=== PATIENT | male | born 1945 | race Caucasian/White ===

== ENCOUNTER 2016-09-16 15:54 | Emergency (ER) | payer MEDICARE, OTHER ==
[~2016-09-16] VITALS: Ht 177.8 cm; Wt 100.0 kg
[~2016-09-16 15:54] MED LIST: AMLODIPINE BESYL5 MG PO; ASPIRIN LOW DOS81 M2 PO; ATORVASTATIN CA20 MG PO; BACTRIM DS1 TAB PO; BUSPIRONE5 MG PO; CEPHALEXIN500 MG PO; CIPROFLOXACN500 MG PO; CITALOPRAM40 MG PO; CLOTRIMAZOLE13 EX; CRESTOR20 MG PO; CRESTOR5 MG PO; DOXYCYCL HYC100 MG PO; EFFEXOR XR75 MG/CAP PO; FLEXERIL PO; GABAPENTIN300 MG PO; GABAPENTIN600 MG PO; GLIPIZIDE ER10 M1 PO; GLIPIZIDE ER5 MG PO; KETOROLAC0.5 % OP; LINZESS290 MCG PO; LISINOP/HCTZ1 TA2 PO; LOSARTAN POT50 MG PO; MEDDOSEPAK PO; METFORMIN1000 MG PO; METFORMIN500 MG PO; MIRTAZAPINE15 MG PO; NAPROSYN500 MG PO; NORVASC10 M1 PO; NORVASC2.5 MG PO; NORVASC5 M1 PO; OFLOXACIN0.3 % OP; PIOGLITAZONE HC30 MG PO; PREDNISONE SOLUT5 ML OU; ROBITUSSIN AC10 ML PO; ROCEPHIN 2 GM2 GM IV; TAMSULOSIN HCL0.4 MG PO; TAMSULOSIN0.4 MG PO; TRAMADOL HCL50 MG PO; ULTRAM50 M1 PO; ULTRAM50 MG PO; XANAX0.25 MG PO; [UNRECOGNIZED DRUG - SUPPLY] TOP
[2016-09-16 16:41] LABS: URINE BILIRUBIN - DIPSTICK NEGATIVE (NEGATIVE); URINE BLOOD DIPSTICK SMALL (NEGATIVE); URINE CLARITY CLOUDY; URINE COLOR YELLOW; URINE GLUCOSE - DIPSTICK 250 mg/dL (NEGATIVE); URINE KETONE NEGATIVE (NEGATIVE); URINE PH 7.5 (4.5-8.0); URINE PROTEIN - DIPSTICK 30 mg/dL (NEG-TRACE)
[2016-09-16 16:49] LABS: URINE LEUK ESTERASE SMALL (NEGATIVE); URINE NITRITE - DIPSTICK POSITIVE (Negative)
[2016-09-16 16:55] LABS: URINE BACTERIA MANY hpf; URINE WBC 20-50 WBC/hpf (0-5)
[2016-09-16 18:15] LABS: HEMOGLOBIN 11.8 g/dl (14.0-18.0); IMMATURE GRANULOCYTES 0.3 % (0.0-1.0); MEAN CELL VOLUME 93.1 fL CALC (80.0-100.0); MEAN CORPUSCULAR HGB 31.4 pG CALC (26.0-32.0); MEAN CORPUSCULAR HGB CONC 33.7 g/L CALC (32.0-36.0); NEUT# 8.17 thou/uL (1.82-7.42); RED BLOOD COUNT 3.76 mill/uL (4.70-6.10); RED CELL DISTRI WIDTH 12.2 % (11.5-15.5)
[2016-09-16 18:30] LABS: PROTHROMBIN TIME 10.4 SECONDS (9.0-12.5)
[2016-09-16 18:35] LABS: ALBUMIN 4.5 g/dL (3.2-5.0); ALKALINE PHOSPHATASE 80 u/l (38-126); ANION GAP 16 (6-22 (CALC)); BILIRUBIN, TOTAL 0.5 mg/dL (0.0-1.4); BUN 19 mg/dL (8-23); BUN/CREATININE RATIO 19 (12-20 (CALC)); CALCIUM 9.6 mg/dL (8.4-10.2); CARBON DIOXIDE 25 mmol/l (22-30); CHLORIDE 105 mmol/l (95-108); GFR > 60 ML/MIN (>=60 (CALC)); GFR FOR AFR.AMER. > 60 ML/MIN (>=60 (CALC)); GLUCOSE 151 mg/dL (82-115); POTASSIUM 4.2 mmol/l (3.5-5.1); SGOT/AST 31 u/l (19-48); SGPT/ALT 52 u/l (11-66); SODIUM 142 mmol/l (137-146); TOTAL PROTEIN 7.8 g/dL (6.3-8.2)
[2016-09-16 18:47] LABS: MYOGLOBIN 89 ng/mL (0 - 121)
[2016-09-16] MEDS ORDERED: ULTRAM50 M1 PO (20:32)
[2016-09-16] MEDS ORDERED: CIPROFLOXACN500 MG PO (20:32)
[2016-09-16] MEDS ORDERED: PYRIDIUM200 MG PO (20:32)
[2016-09-16 21:16] VITALS: BP 150/72
== END 2016-09-16 21:17 | disposition home or self-care (01) ==
LOC: ED 15:54
PROVIDERS: Emergency Medicine
DX: N39.0 Urinary tract infection, site not specified (principal); M79.662 Pain in left lower leg; M79.661 Pain in right lower leg; I10 Essential (primary) hypertension; E78.5 Hyperlipidemia, unspecified; E11.9 Type 2 diabetes mellitus without complications; I25.10 Atherosclerotic heart disease of native coronary artery without angina pectoris; B96.1 Klebsiella pneumoniae [K. pneumoniae] as the cause of diseases classified elsewhere
CPT/HCPCS: J0692; Q9967

== ENCOUNTER 2017-03-04 06:23 | Day surgery (SDC) | payer MEDICARE, OTHER ==
[~2017-03-04 06:23] MED LIST changes: +AMLODIPINE5 MG PO; +CYMBALTA60 MG PO; +GLIPIZIDE5 MG PO; +LISINOPRIL10 MG PO; +MIRTAZAPINE30 MG PO; +PYRIDIUM200 MG PO
[2017-03-04] MEDS ORDERED: TAMSULOSIN0.4 MG PO (08:45)
[2017-03-04] MEDS ORDERED: BETHANECHOL25 MG PO (08:45)
[2017-03-04] MEDS ORDERED: PYRIDIUM200 MG PO (08:45)
[2017-03-04] MEDS ORDERED: TRAMADOL HYDROC50 MG PO (08:45)
[2017-03-04 09:13] VITALS: BP 149/73
== END 2017-03-04 10:20 | disposition home or self-care (01) ==
LOC: ORM 06:23
PROVIDERS: ATTEND Urology
PROC: 0T7D8DZ Dilation of Urethra with Intraluminal Device, Via Natural or Artificial Opening Endoscopic (ICD-10-PCS; principal; 2017-03-04)
DX: N40.1 Benign prostatic hyperplasia with lower urinary tract symptoms (principal); R33.8 Other retention of urine; N13.8 Other obstructive and reflux uropathy; I10 Essential (primary) hypertension; F41.9 Anxiety disorder, unspecified; E11.9 Type 2 diabetes mellitus without complications; E78.5 Hyperlipidemia, unspecified; F43.10 Post-traumatic stress disorder, unspecified; Z87.891 Personal history of nicotine dependence
CPT/HCPCS: J1956; L8699

== ENCOUNTER 2017-04-29 10:35 | Day surgery (SDC) | payer MEDICARE, OTHER ==
[~2017-04-29] VITALS: Ht 177.8 cm; Wt 108.9 kg
[2017-04-29] VITALS (7 sets, daily range): BP systolic 119–144; BP diastolic 53–63
[~2017-04-29 10:35] MED LIST changes: +AZO BLADDER CON1 CAP; +BETHANECHOL25 MG PO; +D3400 UNIT PO; +FINASTERIDE5 MG PO; +TRAMADOL HYDROC50 MG PO; +VIT C/ACEROL500 M1 PO
[2017-04-30 03:56] VITALS: BP 142/70
[2017-04-30 05:06] LABS: HEMATOCRIT 31.4 % (39.0-50.0); HEMOGLOBIN 10.2 g/dl (14.0-18.0); IMMATURE GRANULOCYTES 0.5 % (0.0-1.0); MEAN CELL VOLUME 94.9 fL CALC (80.0-100.0); MEAN CORPUSCULAR HGB 30.8 pG CALC (26.0-32.0); MEAN CORPUSCULAR HGB CONC 32.5 g/L CALC (32.0-36.0); NEUT# 8.23 thou/uL (1.82-7.42); RED BLOOD COUNT 3.31 mill/uL (4.70-6.10); RED CELL DISTRI WIDTH 12.5 % (11.5-15.5)
[2017-04-30 05:15] LABS: ANION GAP 14 (6-22 (CALC)); BUN 18 mg/dL (8-23); BUN/CREATININE RATIO 17 (12-20 (CALC)); CARBON DIOXIDE 23 mmol/l (22-30); CHLORIDE 110 mmol/l (95-108); CREATININE 1.1 mg/dL (0.7-1.3); GFR > 60 ML/MIN (>=60 (CALC)); GFR FOR AFR.AMER. > 60 ML/MIN (>=60 (CALC)); MAGNESIUM 1.9 mg/dL (1.6-2.3); POTASSIUM 4.6 mmol/l (3.5-5.1); SODIUM 142 mmol/l (137-146)
[2017-04-30 05:27] LABS: ALBUMIN 3.4 g/dL (3.2-5.0)
[2017-04-30 08:54] VITALS: BP 134/65
[2017-04-30 15:12] VITALS: BP 128/66
== END 2017-04-30 16:55 | disposition home or self-care (01) ==
LOC: ORM 10:35 → MS2 10:35 → ORM 13:00 → MS2 16:15 → ORM 04-30 16:55
PROVIDERS: Urology; ATTEND Internal Medicine
PROC: 0VUS0JZ Supplement Penis with Synthetic Substitute, Open Approach (ICD-10-PCS; principal; 2017-04-29)
DX: N52.9 Male erectile dysfunction, unspecified (principal); F41.9 Anxiety disorder, unspecified; F32.9 Major depressive disorder, single episode, unspecified; N40.1 Benign prostatic hyperplasia with lower urinary tract symptoms; R33.8 Other retention of urine; E11.9 Type 2 diabetes mellitus without complications; E78.5 Hyperlipidemia, unspecified; I10 Essential (primary) hypertension; F43.10 Post-traumatic stress disorder, unspecified; Z87.891 Personal history of nicotine dependence; Z87.440 Personal history of urinary (tract) infections
CPT/HCPCS: C1813; J3370

== ENCOUNTER 2017-11-08 19:33 | Emergency (ER) | payer MEDICARE, OTHER ==
[~2017-11-08] VITALS: Ht 177.8 cm; Wt 104.5 kg
[2017-11-08 20:10] LABS: IMMATURE GRANULOCYTES 0.2 % (0.0-5.0); MEAN CELL VOLUME 93.3 fL CALC (80.0-100.0); MEAN CORPUSCULAR HGB CONC 34.3 g/L CALC (32.0-36.0); NEUT# 6.71 thou/uL (1.82-7.42); RED BLOOD COUNT 4.03 mill/uL (4.70-6.10); RED CELL DISTRI WIDTH 13.1 % (11.5-15.5)
[2017-11-08 20:18] LABS: HEMATOCRIT 37.6 % (39.0-50.0); HEMOGLOBIN 12.9 g/dl (14.0-18.0)
[2017-11-08 20:24] LABS: ALKALINE PHOSPHATASE 86 u/l (38-126); ANION GAP 20 (6-22 (CALC)); BILIRUBIN, TOTAL 0.3 mg/dL (0.0-1.4); BUN 32 mg/dL (8-23); BUN/CREATININE RATIO 27 (12-20 (CALC)); CARBON DIOXIDE 20 mmol/l (22-30); CHLORIDE 103 mmol/l (95-108); CREATININE 1.2 mg/dL (0.7-1.3); GFR 60 ML/MIN (>=60 (CALC)); GFR FOR AFR.AMER. > 60 ML/MIN (>=60 (CALC)); POTASSIUM 4.4 mmol/l (3.5-5.1); SGOT/AST 23 u/l (19-48); SGPT/ALT 43 u/l (11-66); SODIUM 138 mmol/l (137-146); TOTAL PROTEIN 7.1 g/dL (6.3-8.2)
[2017-11-08 20:25] LABS: ALBUMIN 4.1 g/dL (3.2-5.0)
[2017-11-08 20:32] LABS: MYOGLOBIN 39 ng/mL (0 - 121)
[2017-11-08 20:49] LABS: URINE BILIRUBIN - DIPSTICK NEGATIVE (NEGATIVE); URINE BLOOD DIPSTICK LARGE (NEGATIVE); URINE COLOR YELLOW; URINE GLUCOSE - DIPSTICK >=1000 mg/dL (NEGATIVE); URINE KETONE NEGATIVE (NEGATIVE); URINE LEUK ESTERASE TRACE (NEGATIVE); URINE PH 5.5 (4.5-8.0); URINE PROTEIN - DIPSTICK NEGATIVE (NEG-TRACE); URINE SPECIFIC GRAVITY 1.025; URINE UROBILINOGEN - DIPSTICK 0.2 E.U./dL (0.2)
[2017-11-08 20:53] LABS: URINE CLARITY SL CLOUDY; URINE NITRITE - DIPSTICK POSITIVE (Negative)
[2017-11-08 20:55] LABS: URINE BACTERIA FEW hpf; URINE WBC 20-50 WBC/hpf (0-5)
[2017-11-08 22:30] VITALS: BP 153/73
[2017-11-08] MEDS ORDERED: CIPROFLOXACN500 MG PO (22:32)
== END 2017-11-08 22:54 | disposition home or self-care (01) ==
LOC: ED 19:33
PROVIDERS: Emergency Medicine
DX: N39.0 Urinary tract infection, site not specified (principal); E11.65 Type 2 diabetes mellitus with hyperglycemia; I10 Essential (primary) hypertension; B96.1 Klebsiella pneumoniae [K. pneumoniae] as the cause of diseases classified elsewhere

== ENCOUNTER 2018-08-21 11:55 | Inpatient (IN) | payer MEDICARE, OTHER ==
[~2018-08-21] VITALS: Ht 177.8 cm; Wt 110.0 kg
[2018-08-21 11:30] VITALS: BP 133/64
--- NOTE | 2018-08-21 11:55 | NUR ---
PATIENT ARRIVES TO ED VIA EMS. ALERT AND ORIENTED X4.
[2018-08-21 12:35] LABS: HEMOGLOBIN 11.8 g/dl (14.0-18.0); IMMATURE GRANULOCYTES 0.4 % (0.0-5.0); MEAN CORPUSCULAR HGB 31.1 pG CALC (26.0-32.0); MEAN CORPUSCULAR HGB CONC 32.8 g/L CALC (32.0-36.0); NEUT# 9.17 thou/uL (1.82-7.42); RED BLOOD COUNT 3.79 mill/uL (4.70-6.10); RED CELL DISTRI WIDTH 12.5 % (11.5-15.5)
--- NOTE | 2018-08-21 12:45 | NUR ---
URINE SAMPLE COLLECTED VIA STRAIGHT CATH, URINE NOTED TO BE CLOUDY YELLOW. PATIENT TOLERATED WELL.
[2018-08-21 12:54] LABS: ALBUMIN 4.3 g/dL (3.2-5.0); ALKALINE PHOSPHATASE 63 u/l (38-126); ANION GAP 16 (6-22 (CALC)); BILIRUBIN, TOTAL 0.7 mg/dL (0.0-1.4); BUN 19 mg/dL (8-23); BUN/CREATININE RATIO 17 (12-20 (CALC)); CARBON DIOXIDE 24 mmol/l (22-30); CHLORIDE 103 mmol/l (95-108); CREATININE 1.1 mg/dL (0.7-1.3); GFR > 60 ML/MIN (>=60 (CALC)); GFR FOR AFR.AMER. > 60 ML/MIN (>=60 (CALC)); POTASSIUM 4.2 mmol/l (3.5-5.1); SGOT/AST 17 u/l (19-48); SODIUM 139 mmol/l (137-146)
[2018-08-21 13:07] LABS: URINE BILIRUBIN - DIPSTICK NEGATIVE (NEGATIVE); URINE BLOOD DIPSTICK MODERATE (NEGATIVE); URINE COLOR YELLOW; URINE GLUCOSE - DIPSTICK NEGATIVE (NEGATIVE); URINE KETONE NEGATIVE (NEGATIVE); URINE PH 6.5 (4.5-8.0); URINE PROTEIN - DIPSTICK TRACE mg/dL (NEG-TRACE); URINE SPECIFIC GRAVITY 1.025; URINE UROBILINOGEN - DIPSTICK 0.2 E.U./dL (0.2)
[2018-08-21 13:10] LABS: URINE LEUK ESTERASE SMALL (NEGATIVE); URINE NITRITE - DIPSTICK POSITIVE (Negative)
[2018-08-21 13:16] LABS: URINE BACTERIA MANY hpf; URINE RBC TNTC RBC/hpf (0-5); URINE SQUAMOUS EPITHELIAL CELL FEW EPI/hpf (0-FEW)
[2018-08-21] MEDS ORDERED: HYDROCHLOROT12.5 M1 PO (13:33)
[2018-08-21] MEDS ORDERED: LEVEMIR FL100 UNIT/M SC (13:34)
[2018-08-21] MEDS ORDERED: METFORMIN500 MG PO (13:35)
[2018-08-21] MEDS ORDERED: METO25TAB PO (13:36)
[2018-08-21] MEDS ORDERED: MULTI VIT PO (13:37)
[2018-08-21] MEDS ORDERED: NITROSTAT0.4 MG SL (13:38)
[2018-08-21] MEDS ORDERED: ISOSORB DIN10 MG PO (13:40)
--- NOTE | 2018-08-21 13:41 | NUR ---
AT BEDSIDE TO SEE PATIENT
--- NOTE | 2018-08-21 14:12 | NUR ---
REPORT CALLED TO IZABEL HYDE.
--- NOTE | 2018-08-21 14:17 | NUR ---
PATIENT TRANSPORTED TO [facility] WITH TELE IN PLACE. BELONGINGS, CANE, WALLET, AND CLOTHING SENT UP WITH PATIENT. IZABEL HYDE AT BEDSIDE, CARE RELINQUISHED.
[2018-08-21 14:35] VITALS: BP 137/69
--- NOTE | 2018-08-21 14:53 | NUR ---
PT ARRIVED TO FLOOR VIA STRETCHER IN STABLE CONDITION, ACCOMPANIED BY ER STAFF; PT AMBULATED TO BED WITH SLOW STEADY GAIT WITH X2 ASSIST; A/O X3; RESP EVEN AND UNLABORED ON ROOM AIR; TELE IN PLACE; VITALS AND BED WT OBTAINED; TEMP 100.0, COOL WASH CLOTH APPLIED TO FOREHEAD; PT STATES HE CAME TO HOSP BECAUSE HE WAS UNABLE TO WALK; GENERALIZED WEAKNESS; SELF CATH X2 DAILY, ONCE IN THE AM AND AT BEDTIME; C/O OF BEING HUNGRY; MEDICATED PER EMAR; ORIENT TO ROOM AND CALL GREGG SYSTEM; VOICE NO OTHER CONCERNS; WILL CONTINUE TO MONITOR.
--- NOTE | 2018-08-21 15:19 | NUR ---
PT SITTING UP IN BED; TURKEY SANDWICH PROVIDE; CALL GREGG IN REACH.
--- NOTE | 2018-08-21 17:09 | NUR ---
PT SITTING UP IN BED WATCHING TV; RESP EVEN AND UNLABORED ON ROOM AIR; IVF INFUSING WITHOUT INCIDENT; REQ COFFEE (PROVIDED); MEDICATED PER EMAR; CALL GREGG IN REACH.
--- NOTE | 2018-08-21 19:00 | NUR ---
RECEIEVED REPORT FROM NURSE HYDE, PATIENT RESTING IN BED, ALERT AND ORIENTED, SHALLOW UNLABORED BREATHING CALL LIGHT AT REACH.
[2018-08-21 19:06] VITALS: BP 155/68
--- NOTE | 2018-08-21 20:00 | NUR ---
PATIENT ALERT AND ORIENTED, ABLE TO MAKE NEEDS KNOWN, PATIENT REPORTED THAT HE DOES SELF CATHETERIZATION, ABLE TO DRAIN 950CC CLEAR YELLOW URINE, WITH AN ONGOING IVF OF NS @100CC/HR INFUSING WELL ON RAC REMAINS ON TELE, CALL LIGHT AT REACH.
[2018-08-21 23:30] VITALS: BP 133/64
--- NOTE | 2018-08-22 | NUR ---
PATIENT CURRENTLY RESTING IN BED EYES CLOSED, TEMP 99.6, CALL LIGHT AT REACH WILL CONTINUE TO MONITOR
[2018-08-22 04:05] VITALS: BP 137/64
[2018-08-22 05:20] LABS: HEMATOCRIT 35.1 % (39.0-50.0); HEMOGLOBIN 11.6 g/dl (14.0-18.0); MEAN CELL VOLUME 95.6 fL CALC (80.0-100.0); MEAN CORPUSCULAR HGB 31.6 pG CALC (26.0-32.0); RED BLOOD COUNT 3.67 mill/uL (4.70-6.10); RED CELL DISTRI WIDTH 12.5 % (11.5-15.5)
[2018-08-22 05:44] LABS: ANION GAP 14 (6-22 (CALC)); BUN 19 mg/dL (8-23); BUN/CREATININE RATIO 17 (12-20 (CALC)); CARBON DIOXIDE 25 mmol/l (22-30); CHLORIDE 106 mmol/l (95-108); CREATININE 1.1 mg/dL (0.7-1.3); GFR > 60 ML/MIN (>=60 (CALC)); GFR FOR AFR.AMER. > 60 ML/MIN (>=60 (CALC)); POTASSIUM 4.2 mmol/l (3.5-5.1); SODIUM 140 mmol/l (137-146)
--- NOTE | 2018-08-22 06:05 | NUR ---
PATIENT APPEARS TO BE RESTING IN BED WITH EYES CLOSED, WITH SHALLOW UNLABORED BREATHING AT THIS TIME, CALL LIGHT AT REACH
--- NOTE | 2018-08-22 07:05 | NUR ---
REPORT RECEIVED FROM SAROJ GONZALES;PT RESTING IN SEMI FOWLERS POSITION;INTRODUCED SELF TO PT AND POC DISCUSSED;RESPIRATIONS EVEN AND UNLABORED ON RA;PT DENIES ANY CURRENT PAIN OR DISCOMFORTS;ACCUCHECK 110, NO COVERAGE REQUIRED AT THIS TIME;PT ENCOURAGED TO CALL FOR ASSISTANCE IF NEEDED;FALL PRECAUTIONS IN PLACE WITH BED IN THE LOWEST POSITION AND CALL LIGHT IN REACH;WILL CONTINUE TO MONITOR
--- NOTE | 2018-08-22 07:50 | NUR ---
PT RESTING IN SEMI FOWLERS POSITION COMPLETING SOREN, A&O X4;VS OBTAINED AND ASSESSMENT COMPLETED, CURRENT TEMP 98.9;PT DENIES ANY CURRENT PAIN,PAIN SCALE AND REPORTING EDUCATED;RESPIRATIONS EVEN AND UNLABORED ON RA, CLEAR/DIMINISHED LUNG SOUNDS NOTED;NON-PRODUCTIVE COUGH AT TIMES;ABDOMEN DISTENDED/SOFT ON PALPATION AND ACTIVE IN ALL 4 QUADRANTS;WEAK PEDAL PULSES;SKIN INTACT;#18G TO RAC INFUSING NS @ 100ML/HR,SITE APPEARS HEALTHY;PT STRAIGHT CATHED DUE TO URINARY RETENTION AND 500CC OF CLEAR/YELLOW URINE OBTAINED;IT SHOULD BE NOTED THAT PT SELF CATHS HIMSELF AT HOME;TELE MONITORING NOTED;PT RE-POSITIONED FOR COMFORT PER REQUEST;DENIES ANY ADDITIONAL NEEDS AT THIS TIME;ENCOURAGED PT TO CALL FOR ASSISTANCE IF NEEDED;FALL PRECAUTIONS IN PLACE WITH BED IN THE LOWEST POSITION AND CALL LIGHT IN REACH;WILL CONTINUE TO MONITOR
[2018-08-22 07:52] VITALS: BP 157/98
[2018-08-22 11:00] VITALS: BP 120/61
--- NOTE | 2018-08-22 11:26 | NUR ---
PT RESTING IN SEMI FOWLERS POSITION WITH AT BEDSIDE DISCUSSING POC;RESPIRATIONS EVEN AND UNLABORED ON RA;PT DENIES ANY CURRENT PAIN OR DISCOMFORTS;IV FLUIDS INFUSING WELL TO RAC;TELE MONITORING IN PLACE;ACCUCHECK 134, NO COVERAGE NEEDED;ENCOURAGED PT TO CALL FOR ASSISTANCE IF NEEDED;FALL PRECAUTIONS IN PLACE WITH CALL LIGHT IN REACH;WILL CONTINUE TO MONITOR
--- NOTE | 2018-08-22 15:25 | NUR ---
PT RESTING IN SEMI FOWLERS POSITION;RESPIRATIONS EVEN AND UNLABORED ON RA;PT DENIES ANY CURRENT PAIN OR DISCOMFORTS;IV SITE TO RAC REMAINS PATENT WITH ABX INFUSING WITH EASE;TELE MONITORING IN PLACE;ASSESSMENT REMAINS UNCHANGED AT THIS TIME;ENCOURAGED PT TO CALL FOR ASSISTANCE IF NEEDED;FALL PRECAUTIONS IN PLACE WITH CALL LIGHT IN REACH;WILL CONTINUE TO MONITOR
[2018-08-22 16:19] VITALS: BP 136/68
--- NOTE | 2018-08-22 19:00 | NUR ---
RECEIVED REPORT FROM MILLY, PATIENT CURRENTLY RESTING IN BED, SIDE LYING POSITION, NO DISCOMFORTS NOTED AT THIS TIME, EVEN UNLABORED BREATHING CALL LIGHT AT REACH.
[2018-08-22 19:39] VITALS: BP 146/69
--- NOTE | 2018-08-22 21:30 | NUR ---
PATIENT ALERT AND ORIENTED X 3 ABLE TO MAKE NEEDS KNOWN, DENIES PAIN OR DISCOMFORTS AT THIS TIME, REMAINS ON TELE SR 73, BS 252, COVERAGE GIVEN, CURREWNTLY RESTING IN BED WATCHING TV CALL LIGHT AT REACH.
[2018-08-22 23:35] VITALS: BP 129/72
--- NOTE | 2018-08-23 | NUR ---
PATIENT RESTING IN BED WITH EYES CLOSED NO DISCOMFORTS NOTED AT THIS TIME, ON TELE SR WITH PVC 63, CALL LIGHT AT REACH.
[2018-08-23 03:49] VITALS: BP 127/68
--- NOTE | 2018-08-23 05:00 | NUR ---
PATIENT RESTING IN BED, NO DISCOMFORTS NOTED AT THIS TIME, CALL LIGHT AT REACH.
[2018-08-23 05:28] LABS: HEMATOCRIT 34.8 % (39.0-50.0); HEMOGLOBIN 11.5 g/dl (14.0-18.0); IMMATURE GRANULOCYTES 0.4 % (0.0-5.0); MEAN CELL VOLUME 95.1 fL CALC (80.0-100.0); MEAN CORPUSCULAR HGB 31.4 pG CALC (26.0-32.0); NEUT# 4.98 thou/uL (1.82-7.42); RED BLOOD COUNT 3.66 mill/uL (4.70-6.10); RED CELL DISTRI WIDTH 12.4 % (11.5-15.5)
[2018-08-23 05:48] LABS: ALBUMIN 3.7 g/dL (3.2-5.0); ALKALINE PHOSPHATASE 63 u/l (38-126); ANION GAP 12 (6-22 (CALC)); BUN 17 mg/dL (8-23); BUN/CREATININE RATIO 17 (12-20 (CALC)); CARBON DIOXIDE 25 mmol/l (22-30); CHLORIDE 107 mmol/l (95-108); GFR > 60 ML/MIN (>=60 (CALC)); GFR FOR AFR.AMER. > 60 ML/MIN (>=60 (CALC)); MAGNESIUM 1.9 mg/dL (1.6-2.3); SGOT/AST 21 u/l (19-48); SODIUM 141 mmol/l (137-146); TOTAL PROTEIN 6.4 g/dL (6.3-8.2)
[2018-08-23 05:54] LABS: BILIRUBIN, TOTAL 0.3 mg/dL (0.0-1.4)
--- NOTE | 2018-08-23 07:00 | NUR ---
REPORT RECEIVED FROM SAROJ GONZALES;PT APPEARS TO BE SLEEPING IN SEMI FOWLERS POSITION;NO S/S OF DISTRESS NOTED;RESPIRATIONS EVEN AND UNLABORED ON RA;TELE MONITORING IN PLACE;ACCUCHECK 100, NO COVERAGE NEEDED AT THIS TIME;FALL PRECAUTIONS IN PLACE WITH BED IN THE LOWEST POSITION AND CALL LIGHT IN REACH;WILL CONTINUE TO MONITOR
[2018-08-23 08:30] VITALS: BP 134/60
--- NOTE | 2018-08-23 08:30 | NUR ---
PT OOB RESTING IN RECLINER, A&O X4;VS OBTAINED AND ASSESSMENT COMPLETED;PT DENIES ANY CURRENT PAIN OR DISCOMFORTS,PAIN SCALE AND REPORTING EDUCATED;RESPIRATIONS EVEN AND UNLABORED ON RA,CLEAR/DIMINISHED LUNG SOUNDS;ABDOMEN DISTENDED/FIRM ON PALPATION AND ACTIVE IN ALL 4 QUADRANTS;WEAK PEDAL PULSES WITH +1 EDEMA NOTED,ENCOURAGED ELEVATION OF BLE;#18G TO RAC FLUSHED AND PATENT,SITE APPEARS HEALTHY;TELE MONITORING IN PLACE;IT SHOULD BE NOTED THAT PT SELF CATHS HIMSELF DUE TO URINARY RETENTION;PT DENIES ANY ADDITIONAL NEEDS AT THIS TIME AND IS ENCOURAGED TO CALL FOR ASSISTANCE IF NEEDED;CALL LIGHT IN REACH;WILL CONTINUE TO MONITOR
[2018-08-23 11:12] VITALS: BP 111/64
--- NOTE | 2018-08-23 11:15 | NUR ---
PT OOB RESTING IN RECLINER WATCHING TV;RESPIRATIONS EVEN AND UNLABORED ON RA;PT DENIES ANY CURRENT PAIN OR DISCOMFORTS;TELE MONITORING IN PLACE;ACCUCHECK 229,PT COVERED WITH SLIDING SCALE NOVOLOG PER ORDER;PT DENIES ANY ADDITIONAL NEEDS AT THIS TIME AND IS ENCOURAGED TO CALL FOR ASSISTANCE;CALL LIGHT IN REACH;WILL CONTINUE TO MONITOR
--- NOTE | 2018-08-23 11:47 | NUR ---
AT BEDSIDE DISCUSSING POC.
--- NOTE | 2018-08-23 15:15 | NUR ---
PT RESTING IN SEMI FOWLERS POSITION;RESPIRATIONS REMAIN EVEN AND UNLABORED ON RA;PT DENIES ANY CURRENT PAIN;COFFEE PROVIDED PER REQUEST;IV SITE TO RAC PATENT AND ABX ADMINISTERED AT THIS TIME;TELE MONITORING IN PLACE;PT ENCOURAGED TO CALL FOR ASSISTANCE IF NEEDED;CALL LIGHT IN REACH;WILL CONTINUE TO MONITOR
[2018-08-23 15:45] VITALS: BP 128/72
[2018-08-23 18:59] VITALS: BP 166/65
--- NOTE | 2018-08-23 21:12 | NUR ---
ASSESSMENT COMPELTED. IV SITE PATENT AND SL, FLUSHED WITH NS. DENIES NEEDS/PAIN. SCHEDULED MEDS GIVEN, SEE EMAR. NON- SKID SOCKS APPLIED. UPDATED ON POC. ENCOURAGED TO CALL FOR ANY NEEDS. CALL LIGHT IS IN REACH. WILL CONTINUE TO MONITOR.
--- NOTE | 2018-08-23 23:40 | NUR ---
PT. RESTING IN BED WITH NO DISTRESS NOTED; EYES CLOSED; RESP. EVEN AND UNLABORED. CALL LIGHT IS IN REACH.
[2018-08-24 00:30] VITALS: BP 142/78
--- NOTE | 2018-08-24 02:45 | NUR ---
PT. RESTING IN BED WITH NO DISTRESS NOTED; RESP. EVEN AND UNLABORED. CALL LIGHT IS IN REACH.
[2018-08-24 04:03] VITALS: BP 133/72
--- NOTE | 2018-08-24 04:30 | NUR ---
RESTING IN BED WITH NO DISTRESS NOTED; VOICES NO CONCERNS. COFFEE PROVIDED PER REQUEST; ENCOURAGED TO CALL FOR ANY NEEDS. CALL LIGHT IS IN REACH.
[2018-08-24 05:47] LABS: HEMATOCRIT 34.8 % (39.0-50.0); HEMOGLOBIN 11.6 g/dl (14.0-18.0); IMMATURE GRANULOCYTES 0.3 % (0.0-5.0); MEAN CELL VOLUME 94.6 fL CALC (80.0-100.0); MEAN CORPUSCULAR HGB 31.5 pG CALC (26.0-32.0); MEAN CORPUSCULAR HGB CONC 33.3 g/L CALC (32.0-36.0); NEUT# 3.79 thou/uL (1.82-7.42); RED BLOOD COUNT 3.68 mill/uL (4.70-6.10); RED CELL DISTRI WIDTH 12.5 % (11.5-15.5)
[2018-08-24 06:18] LABS: ALBUMIN 3.7 g/dL (3.2-5.0); ALKALINE PHOSPHATASE 61 u/l (38-126); ANION GAP 14 (6-22 (CALC)); BILIRUBIN, TOTAL 0.2 mg/dL (0.0-1.4); BUN 17 mg/dL (8-23); BUN/CREATININE RATIO 18 (12-20 (CALC)); CARBON DIOXIDE 25 mmol/l (22-30); CHLORIDE 109 mmol/l (95-108); CREATININE 0.9 mg/dL (0.7-1.3); GFR > 60 ML/MIN (>=60 (CALC)); GFR FOR AFR.AMER. > 60 ML/MIN (>=60 (CALC)); MAGNESIUM 2.1 mg/dL (1.6-2.3); SGOT/AST 28 u/l (19-48); SODIUM 143 mmol/l (137-146); TOTAL PROTEIN 6.5 g/dL (6.3-8.2)
--- NOTE | 2018-08-24 06:50 | NUR ---
REPORT RECEIVED FROM SAROJ VILLASEÑOR;PT RESTING IN SEMI FOWLERS POSITION;INTRODUCED SELF TO PT AND POC DISCUSSED;RESPIRATIONS EVEN AND UNLABORED ON RA;PT DENIES ANY CURRENT PAIN OR DISCOMFORTS;TELE MONITORING IN PLACE;PT ENCOURAGED TO CALL FOR ASSISTANCE IF NEEDED;FALL PRECAUTIONS NOTED WITH BED IN THE LOWEST POSITION AND CALL LIGHT IN REACH;WILL CONTINUE TO MONITOR
[2018-08-24 08:48] VITALS: BP 119/55
--- NOTE | 2018-08-24 08:50 | NUR ---
PT OOB RESTING IN RECLINER, A&O X4;VS OBTAINED AND ASSESSMENT COMPLETED;PT DENIES ANY CURRENT PAIN OR DISCOMFORTS, PAIN SCALE AND REPORTING EDUCATED;RESPIRATIONS EVEN AND UNLABORED ON RA,CLEAR LUNG SOUNDS;ABDOMEN DISTENDED/FIRM ON PALPATION AND ACTIVE IN ALL 4 QUADRANTS, LAST BM 08/20/18. PT REFUSES PRN MOM AND PRUNE JUICE;STRONG PEDAL PULSES;TRACE EDEMA NOTED,ENCOURAGED ELEVATION OF BLE;#18G TO RAC FLUSHED AND PATENT,SITE APPEARS HEALTHY;TELE MONITORING IN PLACE;ACCUCHECK 91;PT SHOULD NOTED THAT PT SELF CATHS;PT DENIES ANY ADDITIONAL NEEDS AND IS ENCOURAGED TO CALL FOR ASSISTANCE IF NEEDED;CALL LIGHT IN REACH;WILL CONTINUE TO MONITOR
[2018-08-24 11:00] VITALS: BP 116/62
--- NOTE | 2018-08-24 12:00 | NUR ---
PT OOB RESTING IN RECLINER;RESPIRATIONS EVEN AND UNLABORED ON RA;PT DENIES ANY CURRENT PAIN OR NEEDS;IV SITE TO RAC REMAINS PATENT;TELE MONITORING IN PLACE;ACCUCHECK 184, PT COVERED WITH SLIDING SCALE NOVOLOG PER ORDER;ASSESSMENT REMAINS UNCHANGED AT THIS TIME;ENCOURAGED PT TO CALL FOR ASSISTANCE IF NEEDED;CALL LIGHT IN REACH;WILL CONTINUE TO MONITOR
--- NOTE | 2018-08-24 12:08 | NUR ---
AT BEDSIDE DISCUSSING POC INCLUDING DISCHARGE HOME,PT VERBALIZES UNDERSTANDING;AWAITING DISCHARGE ORDERS;WILL CONTINUE TO MONITOR
[2018-08-24] MEDS ORDERED: KEFLEX500 M1 PO (12:53)
--- NOTE | 2018-08-24 13:39 | NUR ---
ALL DISCHARGE INSTRUCTIONS PROVIDED AT THIS TIME, PT ENCOURAGED TO [facility] FOR [facility]LEX FROM [facility];IV SITE REMOVED WITH CATHETER INTACT;PT DENIES ANY ADDITIONAL NEEDS AT THIS TIME;WHEELCHAIR TO BE PROVIDED FOR DISCHARGE HOME;AWAITING FRIEND FOR TRANSPORTATION.
--- NOTE | 2018-08-24 15:44 | NUR ---
Discharge instructions given. Patient verbalizes understanding of same. Discharged in stable condition via Wheelchair to Home with friend. All belongings sent with pt. [facility] accompanied by volunteer and friend.
== END 2018-08-24 15:42 | disposition home or self-care (01) | DRG 699 ==
LOC: ED 11:55 → ED-I 13:16 → ED 13:39 → MS2 13:40
PROVIDERS: ADMIT Internal Medicine; ATTEND Internal Medicine Nephrology
DX: T83.518A Infection and inflammatory reaction due to other urinary catheter, initial encounter (principal); N39.0 Urinary tract infection, site not specified; I10 Essential (primary) hypertension; E11.9 Type 2 diabetes mellitus without complications; R33.9 Retention of urine, unspecified; M19.90 Unspecified osteoarthritis, unspecified site; F41.8 Other specified anxiety disorders; F32.9 Major depressive disorder, single episode, unspecified; B96.1 Klebsiella pneumoniae [K. pneumoniae] as the cause of diseases classified elsewhere; Y84.6 Urinary catheterization as the cause of abnormal reaction of the patient, or of later complication, without mention of misadventure at the time of the procedure; Z79.4 Long term (current) use of insulin; Z87.440 Personal history of urinary (tract) infections
CPT/HCPCS: G0378

== ENCOUNTER 2019-07-18 18:27 | Inpatient (IN) | payer MEDICARE, OTHER ==
[~2019-07-18] VITALS: Ht 177.8 cm; Wt 106.0 kg
[~2019-07-18 18:27] MED LIST changes: +HYDROCHLOROT12.5 M1 PO; +ISOSORB DIN10 MG PO; +KEFLEX500 M1 PO; +LEVEMIR FL100 UNIT/M SC; +METO25TAB PO; +MULTI VIT PO; +NITROSTAT0.4 MG SL
--- NOTE | 2019-07-18 18:28 | NUR ---
PT TO ROOM VIA EMS STRETCHER FOR BEDSIDE TRIAGE
--- NOTE | 2019-07-18 19:00 | NUR ---
RESTING QUIETLY WAITING FOR TEST RESULTS
[2019-07-18 19:26] LABS: HEMATOCRIT 33.3 % (39.0-50.0); HEMOGLOBIN 11.2 g/dl (14.0-18.0); IMMATURE GRANULOCYTES 0.3 % (0.0-5.0); MEAN CELL VOLUME 92.2 fL CALC (80.0-100.0); MEAN CORPUSCULAR HGB CONC 33.6 g/dL CAL (32.0-36.0); NEUT# 5.71 thou/uL (1.82-7.42); RED BLOOD COUNT 3.61 mill/uL (4.70-6.10); RED CELL DISTRI WIDTH 13.2 % (11.5-15.5)
[2019-07-18 19:43] LABS: ALKALINE PHOSPHATASE 63 u/l (38-126); ANION GAP 10 (6-22 (CALC)); BILIRUBIN, TOTAL 0.3 mg/dL (0.0-1.4); BUN 26 mg/dL (8-23); BUN/CREATININE RATIO 20 (12-20 (CALC)); CARBON DIOXIDE 26 mmol/l (22-30); CHLORIDE 105 mmol/l (95-108); CREATININE 1.3 mg/dL (0.7-1.3); GFR 54 ML/MIN (>=60 (CALC)); GFR FOR AFR.AMER. > 60 ML/MIN (>=60 (CALC)); POTASSIUM 3.7 mmol/l (3.5-5.1); SGOT/AST 19 u/l (19-48); SODIUM 137 mmol/l (137-146); TOTAL PROTEIN 6.9 g/dL (6.3-8.2)
[2019-07-18 19:46] LABS: ACT PARTIAL THROMBO TIME 25.6 SECONDS (20.0-32.5); INTERNATIONAL NORMALIZED RATIO 0.9 RATIO (0.7-1.3); PROTHROMBIN TIME 9.9 SECONDS (9.0-12.5)
--- NOTE | 2019-07-18 20:00 | NUR ---
NO CHANGE IN EXAM. NAD.
[2019-07-18 20:15] LABS: URINE BLOOD DIPSTICK LARGE (NEGATIVE); URINE COLOR BROWN; URINE GLUCOSE - DIPSTICK >=1000 mg/dL (NEGATIVE); URINE KETONE TRACE mg/dL (NEGATIVE); URINE PROTEIN - DIPSTICK >=300 mg/dL (NEG-TRACE); URINE SPECIFIC GRAVITY >=1.030
[2019-07-18 20:18] LABS: URINE BILIRUBIN - DIPSTICK NEGATIVE (NEGATIVE); URINE LEUK ESTERASE MODERATE (NEGATIVE); URINE NITRITE - DIPSTICK POSITIVE (Negative)
[2019-07-18 20:25] LABS: URINE BACTERIA MANY hpf; URINE RBC 50-100 RBC/hpf (0-5); URINE WBC 50-100 WBC/hpf (0-5)
--- NOTE | 2019-07-18 21:00 | NUR ---
DISPO PENDING. COMFORTABLE.
--- NOTE | 2019-07-18 22:00 | NUR ---
VSS. NAD. NO CHANGES NOTED.
--- NOTE | 2019-07-18 22:17 | NUR ---
Admission Note Report Given to: SAROJ ARGUETA Transported by: Wheelchair X Stretcher Transported with: X Nurse Transporter X Patent IV O2 Detective And Intelligence Analyst Location: ICU X MS2
--- NOTE | 2019-07-18 22:30 | NUR ---
PT ARRIVED TO FLOOR VIA STRETCHER ACCOMPANIED BY ED NURSE. PT SELF AMBULATED USING CANE TO THE BED FROM STRETCHER. V/S ASSESSED AND PT ORIENTED TO ROOM. PT APPEARS TO BE STABLE AT THIS TIME.
[2019-07-18 22:33] VITALS: BP 154/76
--- NOTE | 2019-07-19 02:10 | NUR ---
PT SLEEPING, NO S/O DISTRESS NOTED.
--- NOTE | 2019-07-19 04:15 | NUR ---
PT SLEEPING, NO S/O DISTRESS NOTED. CALL LIGHT W/IN REACH.
[2019-07-19 04:37] VITALS: BP 143/69
[2019-07-19 07:37] VITALS: BP 138/64
--- NOTE | 2019-07-19 07:37 | NUR ---
PT SITTING IN BED WATCHING TV. A&O X3. NO DISTRESS NOTED. EXCERTIONAL SOB NOTED BUT CLEAR/DIMINISHED BREATHS SOUNDS AUPON AUSCULTATION. PT C/O OF SOME LOWER ABD PAIN, STATES THAT HIS PAIN STARTED LAST NIGHT BUT IS WORSE THIS MORNING. PT DENIES THE PAIN RADIATING SOMEWHERE ELSE. NO OTHER NEEDS AT THIS TIME. ASSESSMENT COMPLETED. DISCUSSED POC CALL LIGHT IN REACH. CONTINUE TO MONITOR
--- NOTE | 2019-07-19 08:18 | NUR ---
TYLENOL GIVEN FOR PAIN 09/07, WILL REASSESS EXPLAINED TO PT THAT IF MEDICATION DID NOT WORK TO RELIEVE HIS PAIN, THE PHYSICIAN WOULD BE NOTIFIED SO THAT ANOTHER MEDICATION CAN BE ORDERED. PT VERBALIZED UNDERSTANDING.
--- NOTE | 2019-07-19 11:00 | NUR ---
PT SELF CATHETERIZING AT THE SIDE OF THE BED. URINE VILMA IN COLOR, PER PT IT IS BETTER THAN WHAT IT WAS LAST NIGHT. NO BLOOD NOTED.
--- NOTE | 2019-07-19 13:15 | NUR ---
PT SITTING IN BED WATCHING TV. NO NEEDS AT THIS TIME. CALL LIGHT IN REACH. CONTINUE TO MONITOR
--- NOTE | 2019-07-19 15:28 | NUR ---
Patient is seen for PT screen. He is getting up in the room and voices to me that he is at his baseline. I instructed him on calling for help and use of his AD- no other education necessary at this time
[2019-07-19 16:49] VITALS: BP 138/66
[2019-07-19 19:27] VITALS: BP 134/65
--- NOTE | 2019-07-19 19:27 | NUR ---
ASSESSMENT COMPLETED. IV SITE PATENT AND SL, FLUSHED WITH NS. NO DISTRESS NOTED. INSTRUCTED TO CALL FOR ANY NEEDS. PT. HAS HIS OWN STRAIGHT CATHETER KITS TO SELF CATH. ENCOURAGED TO CALL FOR ANY NEEDS. CALL LIGHT IS IN REACH. WILL CONTINUE TO MONITOR.
--- NOTE | 2019-07-19 22:20 | NUR ---
PT. RESTING IN BED WATCHING TV. NO DISTRESS NOTED; DENIES NEEDS/PAIN. IV SITE PATENT AND FLUSHED WITH NS. CALL LIGHT IS IN REACH. WILL CONTINUE TO MONITOR.
--- NOTE | 2019-07-20 00:35 | NUR ---
PT. RESTING IN BED ON LEFT SIDE WITH NO DISTRESS NOTED. URINAL EMPTIED OF 875 MLS. ENCOURAGED TO CALL FOR ANY NEEDS.
--- NOTE | 2019-07-20 02:30 | NUR ---
RESTING IN BED WITH NO DISTRESS NOTED; DENIES NEEDS. CALL LIGHT IS IN REACH.
--- NOTE | 2019-07-20 05:21 | NUR ---
PT. RESTING IN BED WITH EYES CLOSED WITH NO DISTRESS NOTED; DENIES NEEDS/PAIN. CALL LIGHT IS IN REACH.
[2019-07-20 05:39] VITALS: BP 123/67
[2019-07-20 07:31] VITALS: BP 141/65
--- NOTE | 2019-07-20 07:31 | NUR ---
PT SLEEPING IN BED. AWAKENED TO COMPLETE ASSESSMENT. A&O X3. PT DENIES ANY PAIN AT THIS TIME. NO OTHER NEEDS AT THIS TIME. ASSESSMENT COMPLETED. DISCUSSED POC. CALL LIGHT IN REACH. CONTINUE TO MONITOR
[2019-07-20 08:16] VITALS: BP 141/65
[2019-07-20] MEDS ORDERED: CIPROFLOXACN500 MG PO (11:11)
--- NOTE | 2019-07-20 14:40 | NUR ---
D/C INSTUCTIONS GIVEN TO PT. PT VERBALIZED UNDERSTANDING. IV INTACT UPON REMOVAL
--- NOTE | 2019-07-20 14:56 | NUR ---
Discharge instructions given. Patient verbalizes understanding of same. Discharged in stable condition via wheelchair to home with [facility] accompanied by Arpit Carreno LPN. All belongings sent with pt.
== END 2019-07-20 14:56 | DRG 699 ==
LOC: ED 18:27 → ED-I 20:50 → ED 21:03 → MS2 21:07 → ED-I 21:07 → MS2 21:08
PROVIDERS: Emergency Medicine; ADMIT Internal Medicine; ATTEND Internal Medicine
DX: T83.518A Infection and inflammatory reaction due to other urinary catheter, initial encounter (principal); N12 Tubulo-interstitial nephritis, not specified as acute or chronic; R33.9 Retention of urine, unspecified; I10 Essential (primary) hypertension; E11.40 Type 2 diabetes mellitus with diabetic neuropathy, unspecified; K59.00 Constipation, unspecified; E78.5 Hyperlipidemia, unspecified; J44.9 Chronic obstructive pulmonary disease, unspecified; F32.9 Major depressive disorder, single episode, unspecified; B96.1 Klebsiella pneumoniae [K. pneumoniae] as the cause of diseases classified elsewhere; Y84.6 Urinary catheterization as the cause of abnormal reaction of the patient, or of later complication, without mention of misadventure at the time of the procedure; Z79.4 Long term (current) use of insulin; Z87.891 Personal history of nicotine dependence

== ENCOUNTER 2019-12-18 15:06 | Inpatient (IN) | payer MEDICARE, OTHER ==
[~2019-12-18] VITALS: Ht 177.8 cm; Wt 108.2 kg
--- NOTE | 2019-12-18 15:29 | NUR ---
PT ARRIVED TO MS VIA A DIRECT ADMIT. A&O X3. NO DISTRESS NOTED. PT REPORTS WEAKNESS FOR SEVERAL DAYS. PT REPORTS TO SELF CATH AT HOME. NEIGHBOR TO BRING SUPPLIES, INFORMED PT THAT URINE SAMPLE WAS NEEDED AFTER BEING STRAOGHT CATH'D PT VERBALIZED UNDERSTANDING. PT USES CANE TO AMBULATE AT HOME, REPORTS TO LIVE ALONE. STATES THAT EVERY TIME HE GETS A UTI HE GETS REALL WEAK. ORIENTED PT TO ROOM. LES HOSES OFFERED BUT REFUSED. NO OTHER NEEDS AT THIS TIME. TILE APPLICATOR PLACED. ASSESSMENT COMPLETED. DISCUSSED POC. CALL LIGHT IN REACH. CONTINUE TO MONITOR.
[2019-12-18 16:00] VITALS: BP 120/68
--- NOTE | 2019-12-18 17:07 | NUR ---
[place] KNIGHT APRN NOTIFIED OF PTS ABNORMAL EKG. [place] KNIGHT AT BEDSIDE DISCUSSING ABNORMALITY. PT ENCOURAGED TO NOT GET OUT OF BED WITHOUT ASSISSTANCE. ORDERS FOR CARDIOLOGY CONSULT REC ALONG WITH A SERIES OF TROPONINS.
[2019-12-18 18:03] LABS: HEMATOCRIT 38.6 % (39.0-50.0); HEMOGLOBIN 13.2 g/dl (14.0-18.0); MEAN CELL VOLUME 94.4 fL CALC (80.0-100.0); MEAN CORPUSCULAR HGB 32.3 pG CALC (26.0-32.0); MEAN CORPUSCULAR HGB CONC 34.2 g/dL CAL (32.0-36.0); PLATELET COUNT 288 thou/uL (130-400); RED BLOOD COUNT 4.09 mill/uL (4.70-6.10); RED CELL DISTRI WIDTH 13.1 % (11.5-15.5)
[2019-12-18 18:04] LABS: BASO% 0 % (0-3); EOS% 0 % (0-8); LYMPH% 26 % (15-41); MONO% 6 % (2-13); NEUT% 68 % (42-76)
[2019-12-18 18:05] LABS: ALBUMIN 4.5 g/dL (3.2-5.0); CREATININE 1.4 mg/dL (0.7-1.3); POTASSIUM 4.9 mmol/l (3.5-5.1); TOTAL PROTEIN 7.7 g/dL (6.3-8.2)
[2019-12-18 18:08] LABS: BILIRUBIN, TOTAL 0.3 mg/dL (0.0-1.4)
[2019-12-18 19:00] VITALS: BP 155/72
--- NOTE | 2019-12-18 19:00 | NUR ---
REPORT RECEIVED FROM Remi DOMÍNGUEZ, CARE OF PT ASSUMED AT THIS TIME.
--- NOTE | 2019-12-18 20:30 | NUR ---
PT RESTING IN BED, WATCHING TV. PHYSICAL ASSESMENT COMPLETE. SCHEDULED MEDICATIONS ADMINISTERED, SEE E-MAR. PLAN OF CARE REVIEWED, PT VERBALIZES UNDERSTANDING AND DENIES QUESTIONS. PT DENIES ANY NEEDS AT THIS TIME. CALL GREGG WITHIN REACH, AGREES TO CALL PRN.
[2019-12-18 23:28] LABS: URINE BILIRUBIN - DIPSTICK NEGATIVE (NEGATIVE); URINE BLOOD DIPSTICK NEGATIVE (NEGATIVE); URINE CLARITY CLEAR; URINE COLOR YELLOW; URINE GLUCOSE - DIPSTICK NEGATIVE (NEGATIVE); URINE KETONE NEGATIVE (NEGATIVE); URINE LEUK ESTERASE NEGATIVE (Negative); URINE NITRITE - DIPSTICK NEGATIVE (Negative); URINE PROTEIN - DIPSTICK NEGATIVE (NEG-TRACE); URINE UROBILINOGEN - DIPSTICK 0.2 E.U./dL (0.2)
[2019-12-18 23:30] VITALS: BP 136/74
--- NOTE | 2019-12-19 00:30 | NUR ---
PT LAYING IN BED WITH EYES CLOSED, RESPIRATIONS REGULAR AND UNLABORED, NO APPARENT DISTRESS, APPEARS TO BE SLEEPING COMFORTABLY. CALL GREGG REMAINS WITHIN REACH.
[2019-12-19 03:58] VITALS: BP 140/76
[2019-12-19 05:40] LABS: ALBUMIN 3.8 g/dL (3.2-5.0); BILIRUBIN, TOTAL 0.3 mg/dL (0.0-1.4); CREATININE 1.4 mg/dL (0.7-1.3); POTASSIUM 4.4 mmol/l (3.5-5.1); TOTAL PROTEIN 6.3 g/dL (6.3-8.2)
--- NOTE | 2019-12-19 06:06 | NUR ---
PT RESTING IN BED. PT DENIES NEEDS AT THIS TIME. CALL GREGG WITHIN REACH, AGREES TO CALL PRN.
--- NOTE | 2019-12-19 06:08 | NUR ---
PT note Patient is screened for PT intervention and no needs are identified at this time`
--- NOTE | 2019-12-19 07:36 | NUR ---
PT SITTING IN BED. NO DISTRESS NOTED. A&O X3. PT REPORTS WEAKNESS AT THIS TIME. TRACE GENERALIZED EDEMA NOTED. NO OTHER NEEDS AT THIS TIME. ASSESSMENT COMPLETED. DISCUSSED POC. CALL LIGHT IN REACH. CONTINUE TO MONITOR.
[2019-12-19 07:37] VITALS: BP 141/66
--- NOTE | 2019-12-19 10:20 | NUR ---
RT AT BEDSIDE OBTAINING REPEAT EKG
[2019-12-19 11:06] VITALS: BP 106/55
--- NOTE | 2019-12-19 12:44 | NUR ---
CAROLYN JACK APRN AT BEDSIDE
[2019-12-19 14:55] VITALS: BP 103/57
--- NOTE | 2019-12-19 16:20 | NUR ---
PT SITTING IN BED. NO NEEDS AT THIS TIME. CALL LIGHT IN REACH. CONTINUE TO MONITOR.
--- NOTE | 2019-12-19 18:01 | NUR ---
PT SITTING IN BED EATING DINNER. NO NEEDS AT THIS TIME. CALL LIGHT IN REACH. CONTINUE TO MONITOR.
--- NOTE | 2019-12-19 19:30 | NUR ---
PATIENT RESTING IN BED AT THIS TIME WITH EYES CLOSED-EASILY AROUSED. ALERT AND ORIENTEDX3 WITH NO COMPLAINTS AT THIS TIME. TELE MONITOR IN PLACE. IV SITE TO LAC INTACT AND IVF PATENT AND INFUSING AT KVO RATE. PATIENT DOES SELF CATH PRN SUPPLIES PROVIDED AT BEDSIDE. SAFETY PRECAUTIONS RFEINFORCED. CALL LIGHT IN REACH. WILL CONT TO MONITOR.
[2019-12-19 20:16] VITALS: BP 112/67
[2019-12-20] VITALS (7 sets, daily range): BP systolic 119–157; BP diastolic 55–77
--- NOTE | 2019-12-20 | NUR ---
PATIENT APPEARS SLEEPING AT THIS TIME-POSITIONED ON LEFT SIDE. RESPS ARE EVEN AND UNLABORED. CALL LIGHT IN REACH. WILL CONT TO MONITOR.
[2019-12-20 05:30] LABS: HEMATOCRIT 38.3 % (39.0-50.0); HEMOGLOBIN 12.5 g/dl (14.0-18.0); MEAN CORPUSCULAR HGB CONC 32.6 g/dL CAL (32.0-36.0); RED BLOOD COUNT 4.03 mill/uL (4.70-6.10); RED CELL DISTRI WIDTH 12.7 % (11.5-15.5)
[2019-12-20 05:51] LABS: ANION GAP 10 (6-22 (CALC)); BUN 25 mg/dL (8-23); BUN/CREATININE RATIO 19 (12-20 (CALC)); CARBON DIOXIDE 24 mmol/l (22-30); CHLORIDE 107 mmol/l (95-108); CREATININE 1.3 mg/dL (0.7-1.3); GFR 54 ML/MIN (>=60 (CALC)); GFR FOR AFR.AMER. > 60 ML/MIN (>=60 (CALC)); MAGNESIUM 2.2 mg/dL (1.6-2.3); POTASSIUM 4.6 mmol/l (3.5-5.1); SODIUM 136 mmol/l (137-146)
--- NOTE | 2019-12-20 07:24 | NUR ---
PATIENT RESTING IN BED AT THIS TIME. PATIENT DID SELF CATH AND 1000CC OF CLEAR YELLOW URINE EMPTIED. IVF REMAIN AT KVO RATE VIA LAC SITE-SITE REMAINS HEALTHY AT THIS TIME. NO COMPLAINTS AT THIS TIME. TELE MONITOR IN PLACE. SAFETY PRECAUTIONS REINFORCED. CALL LIGHT IN REACHW. WILL CONT TO MONITOR.
--- NOTE | 2019-12-20 07:59 | NUR ---
RECIEVED REPORT FROM SAROJ DAI. PT SLEEPING IN SEMI FOWLERS POSITION UPON ENTERING ROOM. PT EASY TO AWAKEN. INTRODUCED SELF TO PT AND DISCUSSED POC. PT IS A/O X3. ASSESSMENT AND VITALS COMPLETED AT THIS TIME. BP 134/70, HR 54, O2 98% ON ROOM AIR. RESPIRATIONS ARE EVEN AND UNLABORED WITH NO SIGNS OF DISTRESS NOTED. HEART RHYTHM IS NORMAL WITH TELE IN PLACE. BOWEL SOUNDS ARE ACTIVE IN ALL QUADRANTS, LAST REPORTED BM 12/18/2019. RADIAL AND PEDAL PULSES ARE STRONG WITH NORMAL CAPILLARY REFILL. #22G LAC RUNNING WITH IVF PER ORDER, SITE APPEARS HEALTHY AND PATENT.PT PRESENTS WITH KNEE BRACE ON LEFT KNEE. WRITTER INFORMED THAT PT STRAIGHT CATHS BY SEFT. PT ENCOURAGED TO CALL WRITTER WHEN CATH TO MEASURE OUPUT. PT VERBAZLIZED UNDERSTANDING. PT DENIES OF ANY PAIN OR DISCOMFORTS. ALL SAFETY PRECAUTIONS ARE IN PLACE WITH CALL LIGHT IN REACH. WILL CONTINUE TO MONITOR
--- NOTE | 2019-12-20 12:15 | NUR ---
PT RESTING IN RECYLINER. RESPRIATIONS ARE EVEN AND UNLABORED WITH NO SIGNS OF DISTRESS NOTED. PT IS A/O X3. PT DENIES OF ANY PAIN OR DISCOMFORTS AT THIS TIME. ALL SAFETY PRECAUTIONS ARE IN PLACE WITH CALL LIGHT IN REACH. WILL CONTINUE TO MONITOR.
--- NOTE | 2019-12-20 16:18 | NUR ---
PT RESTING IN RECYLINER. RESPIRATIONS ARE EVEN AND UNLABORED WITH NO SIGNS OF DISTRESS NOTED. PT IS A/OX3. PT DENIES ANY PAIN OR DISCOMFORTS AT THIS TIME. ALL SAFETY PRECAUTIONS ARE IN PLACE WITH CALL LIGHT IN REACH. WILL CONTINUE TO MONITOR
--- NOTE | 2019-12-20 19:30 | NUR ---
PT RESTING IN RECLINER, NO SIGNS OF DISTRESS NOTED, RESP EVEN AND UNLABORED. PT ALERT AND ORIENTED X3, DISCUSSED POC, PT EMPTIED 800CC OF CLEAR YELLOW URINE VIA SELF CATHETERIZATION. ASSESSMENT COMPLETED, CALL LIGHT IN REACH,CONTINUE TO MONITOR.
--- NOTE | 2019-12-21 | NUR ---
PT RESTING IN BED WITH EYES CLOSED, NO SIGNS OF DISTRESS NOTED, RESP EVEN AND UNLABORED. CALL LIGHT IN REACH,CONTINUE TO MONITOR.
[2019-12-21 00:27] VITALS: BP 140/64
--- NOTE | 2019-12-21 04:00 | NUR ---
PT RESTING IN BED, NO SIGNS OF DISTRESS NOTED, RESP EVEN AND UNLABORED. PT VOICES NO NEEDS OR COMPLAINTS AT THIS TIME. CALL LIGHT IN REACH,CONTINUE TO MONITOR.
[2019-12-21 04:11] VITALS: BP 115/55
[2019-12-21 04:35] LABS: HEMATOCRIT 37.5 % (39.0-50.0); HEMOGLOBIN 12.3 g/dl (14.0-18.0); MEAN CELL VOLUME 94.9 fL CALC (80.0-100.0); MEAN CORPUSCULAR HGB 31.1 pG CALC (26.0-32.0); MEAN CORPUSCULAR HGB CONC 32.8 g/dL CAL (32.0-36.0); RED BLOOD COUNT 3.95 mill/uL (4.70-6.10); RED CELL DISTRI WIDTH 12.6 % (11.5-15.5)
[2019-12-21 04:59] LABS: ANION GAP 11 (6-22 (CALC)); BUN 23 mg/dL (8-23); BUN/CREATININE RATIO 19 (12-20 (CALC)); CARBON DIOXIDE 25 mmol/l (22-30); CHLORIDE 106 mmol/l (95-108); CREATININE 1.2 mg/dL (0.7-1.3); GFR 59 ML/MIN (>=60 (CALC)); GFR FOR AFR.AMER. > 60 ML/MIN (>=60 (CALC)); MAGNESIUM 2.1 mg/dL (1.6-2.3); POTASSIUM 4.5 mmol/l (3.5-5.1); SODIUM 138 mmol/l (137-146)
[2019-12-21 07:27] VITALS: BP 132/72
--- NOTE | 2019-12-21 07:27 | NUR ---
RECIEVED REPORT FROM Alyssa VUONG LPN. PT RESTING IN RECYLINER UPON ENTERING ROOM. INTRODUCED SELF TO PT AND DISCUSSED POC. PT IS A/OX3. ASSESSMENT AND VITALS COMPLETED AT THIS TIME. BP 132/72, HR 70, O2 99% ON ROOM AIR. RESPIRATIONS ARE EVEN AND UNLABORED WITH NO SIGNS OF DISTRESS NOTED. LUNG SOUNDS ARE CLEAR. HEART RHYTHM IS NORMAL WITH TELE IN PLACE. BOWEL SOUNDS ARE ACTIVE, LAST REPORTED BM 12/18/2019. MD TO BE NOTIFIED OF LAST BM. RADIAL AND PEDAL PULSES ARE STRONG WITH NORMAL CAPILLARY REFILL. #22G IN LAC RUNNING WITH IVF PER ORDER, SITE APPEARS HEALTHY AND PATENT. PT DOES SLEF CATH SELF, SUPPLY AT BEDSIDE. PT DENIES ANY PAIN OR DISCOMFORTS AT THSI TIME. ALL SAFETY PRECAUTIONS ARE IN PLACE WITH CALL LIGHT IN REACH. WILL CONTINUE TO MONITOR.
--- NOTE | 2019-12-21 08:54 | NUR ---
DR BYNUM AT BEDSIDE DISCUSSING POC WITH PT
--- NOTE | 2019-12-21 10:23 | NUR ---
PRELIMINARY BLOOD CULTURE RESULTS CALLED TO ANNE-MARIE MUÑOZ 03/04 VIALS NO NEW ORDERS AT THIS TIME.
--- NOTE | 2019-12-21 12:02 | NUR ---
PT RESTING IN RECYLINER AT THIS TIME. RESPIRATIONS ARE EVEN AND UNLABORED WITH NO SIGNS OF DISTRESS NOTED. AWAITING FOR DISCHARGE INSTRUCTIONS AT THIS TIME. PT DENIES ANY NEEDS AT THIS TIME. ALL SAFTEY PRECAUTIONS ARE IN PLACE WITH CALL LIGHT IN REACH. WILL CONTINUE TO MONITOR
[2019-12-21 12:09] VITALS: BP 148/57
--- NOTE | 2019-12-21 12:42 | NUR ---
Pt. found resting in recliner, he is without questions/concerns and agrees to participate in physical therapy. Gait belt applied prior to. Sit to stand with UE push off from armrest, pt. used RW for maintaining static standing. Pt. ambulated 2 x 50 feet using RW with CGA and assist with IV pole. Pt. required verbal cues for safety, R/L LE clearance during swing phase. Post ambulation pt. returned to sitting in recliner, v.c.'s for reaching back for armrests and gradded lowering. Pt. left resting comfortably in recliner, he is left with his lunch tray, call light within reach and no questions/concerns. AMPAC score unchanged.
--- NOTE | 2019-12-21 14:13 | NUR ---
PT EDUCATED ON DISCHARGE INSTRUCTIONS AND HOLD OF MEDICATIONS. PT VERBAILZED UNDERSTANDING. IV REMOVED WITH CATHATER STILL INTACT. TELE MONITORING REMOVED . ER NOTIFIED. AWAITING FOR TRANSPORTATION AT THIS TIME. ALL SAFETY PECAUTIONS ARE IN PLACE WITH ALL LIGHT IN REACH. WILL CONTINUE TO MONITOR
--- NOTE | 2019-12-21 14:21 | NUR ---
Discharge instructions given. Patient verbalizes understanding of same. Discharged in stable condition via Wheelchair to Home with family. All belongings sent with pt. PT DISCHARGED VIA WHEELCHAIR IN STABLE CONDITION ACCOMPAINED BY JULEE BLAKELY. PT DISCHARGED WITH [facility]. PT INFORMED THAT HOME HEALTH WOUND BE IN CONTACT. PT VERBAILZED UNDERSTANDING. PT LEFT WITH ALL DISCHARGE INSTRUCTIONS AND BELONGINGS.
== END 2019-12-21 14:28 | disposition home health service (06) | DRG 310 ==
LOC: MS2 15:06
PROVIDERS: Nurse Practitioner; ADMIT Internal Medicine; ATTEND Internal Medicine
PROC: 3E02340 Introduction of Influenza Vaccine into Muscle, Percutaneous Approach (ICD-10-PCS; principal; 2019-12-20)
PROC: 3E0234Z Introduction of Serum, Toxoid and Vaccine into Muscle, Percutaneous Approach (ICD-10-PCS; 2019-12-20)
DX: R00.1 Bradycardia, unspecified (principal); E11.9 Type 2 diabetes mellitus without complications; I11.9 Hypertensive heart disease without heart failure; M19.90 Unspecified osteoarthritis, unspecified site; F41.9 Anxiety disorder, unspecified; F32.9 Major depressive disorder, single episode, unspecified; E78.5 Hyperlipidemia, unspecified; J44.9 Chronic obstructive pulmonary disease, unspecified; G47.33 Obstructive sleep apnea (adult) (pediatric); N31.8 Other neuromuscular dysfunction of bladder; K59.00 Constipation, unspecified; T81.9XXS Unspecified complication of procedure, sequela; Y83.9 Surgical procedure, unspecified as the cause of abnormal reaction of the patient, or of later complication, without mention of misadventure at the time of the procedure; Z23 Encounter for immunization; Z87.891 Personal history of nicotine dependence; Z22.39 Carrier of other specified bacterial diseases
CPT/HCPCS: Q3014

== ENCOUNTER 2020-02-16 10:23 | Observation (INO) | payer MEDICARE, OTHER ==
[~2020-02-16] VITALS: Ht 177.8 cm; Wt 109.0 kg
--- NOTE | 2020-02-16 10:23 | NUR ---
PT TO ROOM # 10 VIA EMS STRETCHER. PROVIDER MADE AWARE OF PT STATUS.
[2020-02-16] MEDS ORDERED: VITAMIN D31000 UNI1 PO (10:26)
[2020-02-16] MEDS ORDERED: VITAMIN C500 M6 PO (10:27)
[2020-02-16] MEDS ORDERED: AMLODIPINE BESYL5 MG PO (10:28)
[2020-02-16] MEDS ORDERED: PROAIR HFA108 MCG/AC IN (10:31)
[2020-02-16] MEDS ORDERED: LEVOTHYROXIN50 MCG PO (10:32)
[2020-02-16] MEDS ORDERED: NORVASC5 M1 PO (10:35)
[2020-02-16] MEDS ORDERED: TOPROL XL25 MG PO (10:35)
--- NOTE | 2020-02-16 11:03 | NUR ---
PT STATES HAVING INCREASED WEEKNESS THAT STARTED YESTERDAY. HE DENIES ANY N/V OR DIARRHEA. HE MENTIONS THAT EVER SINCE HE STARTED TO HAVE ANTIBIOTICS INFUSED ON OUTPT BASIS, HE STARTED TO HAVE THESE SYMPTOMS. PT DENIES ANY ABD PAIN, SOB OR CHEST PAIN. "I FEEL WEAK ALL OVER". AFIBRILE. NIH OF 0. PT ALREADY HAS DECREASED SENSATION IN LOWER BILAT LIMBS BECAUSE OF CHRONIC NEUROPATHY. THE ANTIBIOTICS ARE FOR HIS UTI THAT HAS NOT BEEN ERADICATED SINCE NOV. PT HAS AN EXISTING IV IN THE LEFT AC. WILL CONTINUE TO MONITOR
[2020-02-16 11:18] LABS: HEMATOCRIT 42.5 % (39.0-50.0); HEMOGLOBIN 13.8 g/dl (14.0-18.0); IMMATURE GRANULOCYTES 0.2 % (0.0-5.0); MEAN CELL VOLUME 95.3 fL CALC (80.0-100.0); MEAN CORPUSCULAR HGB 30.9 pG CALC (26.0-32.0); MEAN CORPUSCULAR HGB CONC 32.5 g/dL CAL (32.0-36.0); NEUT# 5.51 thou/uL (1.82-7.42); RED BLOOD COUNT 4.46 mill/uL (4.70-6.10); RED CELL DISTRI WIDTH 12.7 % (11.5-15.5)
[2020-02-16 11:34] LABS: ACT PARTIAL THROMBO TIME 25.9 SECONDS (20.0-32.5); PROTHROMBIN TIME 10.1 SECONDS (9.0-12.5)
[2020-02-16 11:37] LABS: ALBUMIN 4.3 g/dL (3.2-5.0); ALKALINE PHOSPHATASE 61 u/l (38-126); AMYLASE 75 u/l (30-110); ANION GAP 14 (6-22 (CALC)); BILIRUBIN, TOTAL 0.4 mg/dL (0.0-1.4); BUN 22 mg/dL (8-23); BUN/CREATININE RATIO 22 (12-20 (CALC)); CARBON DIOXIDE 26 mmol/l (22-30); CHLORIDE 108 mmol/l (95-108); ETHYL ALCOHOL 0 mg/dl (0-30); GFR > 60 ML/MIN (>=60 (CALC)); GFR FOR AFR.AMER. > 60 ML/MIN (>=60 (CALC)); LIPASE 141 u/l (23-300); MAGNESIUM 2.2 mg/dL (1.6-2.3); SGOT/AST 26 u/l (19-48); SODIUM 143 mmol/l (137-146); TOTAL PROTEIN 7.3 g/dL (6.3-8.2)
[2020-02-16 12:30] LABS: URINE BILIRUBIN - DIPSTICK NEGATIVE (NEGATIVE); URINE BLOOD DIPSTICK LARGE (NEGATIVE); URINE COLOR YELLOW; URINE GLUCOSE - DIPSTICK NEGATIVE (NEGATIVE); URINE KETONE NEGATIVE (NEGATIVE); URINE LEUK ESTERASE NEGATIVE (NEGATIVE); URINE NITRITE - DIPSTICK NEGATIVE (Negative); URINE PH 5.5 (4.5-8.0); URINE PROTEIN - DIPSTICK 30 mg/dL (NEG-TRACE); URINE SPECIFIC GRAVITY >=1.030; URINE UROBILINOGEN - DIPSTICK 0.2 E.U./dL (0.2)
--- NOTE | 2020-02-16 12:30 | NUR ---
PT RESTING WITH EYES CLOSED. MD NOTIFIED OF PT VITALS AND LOW BP. MD VERBALIZED UNDERSTANDING. THROUGHOUT STAY PT BASELINE IS MID TO LOW 50s AND PT IS RESTING WITH EYES CLOSED, A DECREASE TO 45-50 BPM NOTED. BP WNL.
[2020-02-16 12:34] LABS: URINE EPITHELIAL CELLS FEW EPI/hpf (0-FEW); URINE MUCUS FEW hpf (NONE-FEW)
--- NOTE | 2020-02-16 13:26 | NUR ---
MD AT BEDSIDE DISCUSSING RESULTS OF TREATMENTS AND PLAN OF CARE. PT LAYING IN STRETCHER WITH CALL LIGHT WITHIN REACH. VITALS WNL. WILL CONTINUE TO MONITOR.
--- NOTE | 2020-02-16 14:40 | NUR ---
SBAR PRINTED TO FLOOR
--- NOTE | 2020-02-16 15:19 | NUR ---
PT RESTING ON STRETCHER TALKING TO FAMILY MEMBERS ON PHONE. VITALS WNL. CALL LIGHT WITHIN REACH.
--- NOTE | 2020-02-16 17:40 | NUR ---
REPORT REC FROM ANTONI KYLE
--- NOTE | 2020-02-16 17:42 | NUR ---
GAVE REPORT TO LUPE
[2020-02-16 17:50] VITALS: BP 172/73
--- NOTE | 2020-02-16 17:50 | NUR ---
PT TRANSPORTED TO [facility] STABLE AND IN NO DISTRESS. CARE ASSUMED TO LUPE Admission Note Report Given to: LUPE Transported by: Wheelchair X Stretcher Transported with: X Nurse Transporter X Patent IV O2 X Occupational Therapy Instructor Location: ICU X MS2
[2020-02-16 20:00] VITALS: BP 151/78
--- NOTE | 2020-02-16 22:20 | NUR ---
FINGER STICK GLUCOSE 234mg/Dl. SCHEDULED MEDICATIONS ADMINISTERED, SEE E-MAR. PT STATES HE WILL NEED A STRAIGHT CATH FOR AM CATHETERIZATION HE CHRONICALLY USES INTERMITTENT CATHING TO VOID. HS SNACK AND COFFEE PROVIDED. PT DENIES FURTHER NEEDS, CALL GREGG WITHIN REACH, AGREES TO CALL PRN.
[2020-02-17] VITALS: BP 158/74
--- NOTE | 2020-02-17 01:26 | NUR ---
PT APPEARS TO BE SLEEPING COMFORTABLY, LAYING IN BED WITH EYES CLOSED. NO APPARENT DISTRESS, RESPIRATIONS REGULAR AND UNLABORED. CALL GREGG REMAINS WITHIN REACH.
[2020-02-17 04:00] VITALS: BP 134/73
--- NOTE | 2020-02-17 05:05 | NUR ---
STRAIGHT CATH INSERTED, 850ML CLEAR YELLOW URINE DRAINED. PT TOLERATED WELL.
[2020-02-17 07:56] VITALS: BP 155/79
--- NOTE | 2020-02-17 10:14 | NUR ---
DR JIMENEZ AND Rome KNIGHT PIPE FITTER GAS PIPE AT BEDSIDE DISCUSSING POC.
[2020-02-17 11:00] VITALS: BP 147/77
[2020-02-17 15:00] VITALS: BP 141/74
[2020-02-17 20:00] VITALS: BP 158/75
--- NOTE | 2020-02-17 20:00 | NUR ---
PATIENT RESTING IN BED AT THIS TIME-AWAKE ALERT AND ORIENTEDX3. PATIENT STATES THAT HE DID HAVE BM TONIGHT-INSTRUCTED THAT WE NEED STOOL SPEC FOR NEXT TIME HE HAS A BM. 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 PATIENT HAS HIS OWN SUPPLIES. IV SITE TO RAC INTACT WITH IVF NS PATENT AND INFUSING AT 100CC/HR. SITE IS HEALTHY AT THIS TIME. SAFETY PRECAUTIONS REINFORCED. CALL LIGHT IN REACH. WILL CONT TO MONITOR.
--- NOTE | 2020-02-17 21:15 | NUR ---
ACCU-CHECK IS 242-PATIENT MEDICATED PER SS COVERAGE AND WITH LEVEMIR 55UNITS SCHEDULED. HS SNACK PROVIDED. CALL LIGHT IN REACH. WILL CONT TO MONITOR.
[2020-02-18] VITALS (8 sets, daily range): BP systolic 138–168; BP diastolic 74–82
--- NOTE | 2020-02-18 01:39 | NUR ---
PATIENT POSITIONED ON HIS LEFT SIDE AT THIS TIME WITH EYES CLOSED. RESPS ARE EVEN AND UNLABORED. APPEARS SLEEPING. IVF NS PATENT AND INFUSING VIA RAC SITE AT 100CC/HR. CALL LIGHT IN REACH. WILL CONT TO MONITOR.
--- NOTE | 2020-02-18 03:08 | NUR ---
PATIENT POSITIONED ON LEFT SIDE WITH EYES CLOSED. RESPS ARE EVEN AND UNLABORED. APPEARS SLEEPING. IVF NS PATENT AND INFUSING VIA RAC SITE. CALL LIGHT IN REACH. WILL CONT TO MONITOR.
[2020-02-18 05:25] LABS: HEMOGLOBIN 12.9 g/dl (14.0-18.0); IMMATURE GRANULOCYTES 0.2 % (0.0-5.0); MEAN CELL VOLUME 94.8 fL CALC (80.0-100.0); MEAN CORPUSCULAR HGB 30.6 pG CALC (26.0-32.0); MEAN CORPUSCULAR HGB CONC 32.3 g/dL CAL (32.0-36.0); NEUT# 4.62 thou/uL (1.82-7.42); RED BLOOD COUNT 4.22 mill/uL (4.70-6.10); RED CELL DISTRI WIDTH 12.7 % (11.5-15.5)
[2020-02-18 05:41] LABS: ALBUMIN 3.5 g/dL (3.2-5.0); ALKALINE PHOSPHATASE 53 u/l (38-126); ANION GAP 9 (6-22 (CALC)); BILIRUBIN, TOTAL 0.3 mg/dL (0.0-1.4); BUN 20 mg/dL (8-23); BUN/CREATININE RATIO 20 (12-20 (CALC)); CARBON DIOXIDE 24 mmol/l (22-30); CHLORIDE 112 mmol/l (95-108); GFR > 60 ML/MIN (>=60 (CALC)); GFR FOR AFR.AMER. > 60 ML/MIN (>=60 (CALC)); POTASSIUM 4.3 mmol/l (3.5-5.1); SGOT/AST 21 u/l (19-48); SODIUM 141 mmol/l (137-146); TOTAL PROTEIN 6.3 g/dL (6.3-8.2)
--- NOTE | 2020-02-18 05:51 | NUR ---
PATIENT DID OWN STRAIGHT CATH WITHOUT ANY DIFFICULTY AND DRAIMED 1000CC OF URINE. PATIENT RESTING IN BED-MERRUM INFUSING ORDERED. CALL LIGHT IN REACH. WILL CONT TO MONITOR.
--- NOTE | 2020-02-18 07:10 | NUR ---
REPORT RECEIVED FROM SAROJ DAI.
--- NOTE | 2020-02-18 08:20 | NUR ---
PT RESTING IN SEMI FOWLERS POSITION,A&O X3;VS OBTAINED AND ASSESSMENT COMPLETED;PT DENIES ANY CURRENT PAIN OR DISCOMFORTS,PAIN SCALE AND REPORTING EDUCATED;RESPIRATIONS EVEN AND UNLABORED ON RA,DIMINISHED LUNG SOUNDS NOTED;ABDOMEN DISTENDED/SOFT ON PALPATION AND ACTIVE IN ALL 4 QUADRANTS;WEAK PEDAL PULSES;SKIN INTACT;TELE MONITORING IN PLACE;#20G TO RAC INFUSING NS @ 100ML/HR,SITE APPEARS HEALTHY;ACCUCHECK 141, NO COVERAGE NEEDED;PT DENIES ANY ADDITIONAL NEEDS AT THIS TIME AND IS ENCOURAGED TO CALL F0R ASSISTANCE IF NEEDED;FALL PRECAUTIONS IN PLACE WITH BED IN THE LOWEST POSITION AND CALL LIGHT IN REACH;WILL CONTINUE TO MONITOR
--- NOTE | 2020-02-18 11:40 | NUR ---
PT RESTING IN SEMI FOWLERS POSITION;RESPIRATIONS EVEN AND UNLABORED ON RA;PT DENIES ANY CURRENT PAIN OR DISCOMFORTS;TELE MONITORING IN PLACE;IV SITE PATENT AND NS DECREASED TO 20ML/HR PER MD;BP RE-CHECK 168/81 HR 55;ACCUCHECK 167, PT COVERED WITH SLIDING SCALE INSULIN PER ORDER;PT DENIES ANY ADDITIONAL NEEDS AND IS ENCOURAGED TO CALL FOR ASSISTANCE IF NEEDED;CALL LIGHT IN REACH;WILL CONTINUE TO MONITOR
--- NOTE | 2020-02-18 15:40 | NUR ---
PT RESTING IN SEMI FOWLERS POSITION TALKING ON THE PHONE;RESPIRATIONS EVEN AND UNLABORED ON RA;PT DENIES ANY CURRENT PAIN OR NEEDS;TELE MONITORING IN PLACE;IV FLUIDS CONTINUE TO INFUSE WITH EASE TO RAC;ALL SAFETY PRECAUTIONS REMAIN IN PLACE WITH BED IN THE LOWEST POSITION AND CALL LIGHT IN REACH;WILL CONTINUE TO MONITOR
--- NOTE | 2020-02-18 20:04 | NUR ---
PATIENT RESTING IN BED-AWAKE ALERT AND ORIENTEDX3. PATIENT WITH NO COMPLAINTS AT THIS TIME. IVF PATENT AND INFUSING VIA RAC SITE AT 100CC/HR. SITE REMAINS HEALTHY AT THIS TIME. CALL LIGHT IN REACH. WILL CONT TO MONITOR.
[2020-02-19] VITALS (7 sets, daily range): BP systolic 120–193; BP diastolic 66–99
--- NOTE | 2020-02-19 00:07 | NUR ---
PATIENT POSITIONED ON LEFT SIDE WITH EYES CLOSED. RESPS ARE EVEN AND UNLABORED. IVF PATENT AND INFUSING VIA R4AC AT 20CC/HR. VSLL LIGHT IN REACH. WILL CONT TO MONITOR,
[2020-02-19 05:20] LABS: HEMATOCRIT 38.9 % (39.0-50.0); HEMOGLOBIN 12.7 g/dl (14.0-18.0); MEAN CORPUSCULAR HGB 30.7 pG CALC (26.0-32.0); MEAN CORPUSCULAR HGB CONC 32.6 g/dL CAL (32.0-36.0); RED BLOOD COUNT 4.14 mill/uL (4.70-6.10); RED CELL DISTRI WIDTH 12.6 % (11.5-15.5)
[2020-02-19 05:40] LABS: ANION GAP 11 (6-22 (CALC)); BUN 19 mg/dL (8-23); BUN/CREATININE RATIO 21 (12-20 (CALC)); CARBON DIOXIDE 24 mmol/l (22-30); CHLORIDE 111 mmol/l (95-108); CREATININE 0.9 mg/dL (0.7-1.3); GFR > 60 ML/MIN (>=60 (CALC)); GFR FOR AFR.AMER. > 60 ML/MIN (>=60 (CALC)); MAGNESIUM 2.1 mg/dL (1.6-2.3); POTASSIUM 4.2 mmol/l (3.5-5.1); SODIUM 141 mmol/l (137-146)
--- NOTE | 2020-02-19 07:10 | NUR ---
REPORT RECEIVED FROM SAROJ DAI
--- NOTE | 2020-02-19 07:31 | NUR ---
PT note Patient is screened fro PT intervention and it is felt he would benefit if MD agrees
--- NOTE | 2020-02-19 08:10 | NUR ---
PT RESTING IN SEMI FOWLERS POSITION,A&O X3;VS OBTAINED AND ASSESSMENT COMPLETED, CURRENT BP 193/99 HR 79. ALL MORNING MEDICATIONS GIVEN AT THIS TIME;PT DENIES ANY CURRENT PAIN OR DISCOMFORTS,PAIN SCALE AND REPORTING EDUCATED;RESPIRATIONS EVEN AND UNLABORED ON RA,CLEAR LUNG SOUNDS;ABDOMEN DISTENDED/SOFT ON PALPATION AND ACTIVE IN ALL 4 QUADRANTS;STRONG PEDAL PULSES;SKIN INTACT;TELE MONITORING IN PLACE;#20G TO RAC INFUSING NS @ 50ML/HR,SITE APPEARS HEALTHY;ACCUCHECK 109, NO COVERAGE NEEDED AT THIS TIME;PT DENIES ANY ADDITIONAL NEEDS AND IS ENCOURAGED TO CALL FOR ASSISTANCE IF NEEDED;FALL PRECAUTIONS IN PLACE WITH BED IN THE LOWEST POSITION AND CALL LIGHT IN REACH;WILL CONTINUE TO MONITOR
--- NOTE | 2020-02-19 09:35 | NUR ---
BP RE-CHECK 146/67 HR 65.
--- NOTE | 2020-02-19 11:40 | NUR ---
PT RESTING IN RECLINER;RESPIRATIONS EVEN AND UNLABORED ON RA;PT DENIES ANY CURRENT PAIN OR NEEDS;TELE MONITORING IN PLACE;IV SITE PATENT INFUSING NS @ 20ML/HR,SITE APPEARS HEALTHY;ACCUCHECK 234, PT COVERED WITH SLIDING SCALE INSULIN PER ORDER;PT DENIES ANY ADDITIONAL NEEDS AND IS ENCOURAGED TO CALL FOR ASSISTANCE IF NEEDED;CALL LIGHT IN REACH;WILL CONTINUE TO MONITOR
--- NOTE | 2020-02-19 11:50 | NUR ---
OT AT BEDSIDE
--- NOTE | 2020-02-19 17:00 | NUR ---
PT RESTING IN SEMI FOWLERS POSITION;RESPIRATIONS EVEN AND UNLABORED ON RA;PT DENIES ANY CURRENT PAIN OR DISCOMFORTS;IV SITE PATENT INFUSING NS WITH EASE;ACCUCHECK 113, NO COVERAGE NEEDED;PT ENCOURAGED TO CALL FOR ASSISTANCE IF NEEDED;CALL LIGHT IN REACH;WILL CONTINUE TO MONITOR
--- NOTE | 2020-02-19 19:58 | NUR ---
PATIENT RESTING IN BED AT THIS TIME-AWAKE ALERT AND ORIENTEDX3. PATIENT STATES THAT HE WAS UP TODAY AND WORKED WITH PT AND OT. ALSO HAD SHOWER. IV SITE TO RAC INTACT WITH IVF NS PATENT AND INFUSING AT 20CC/HR. SITE REMAINS HEALTHY. SWELLING NOTED TO BOTH HANDS. PULSES ARE PALPABLE. TELE MONITOR IN PLACE. CALL LIGHT IN REACH. WILL CONT TO MONITOR.
--- NOTE | 2020-02-19 21:00 | NUR ---
PATIENT RESTING IN BED-PATIENT DID SELF CATH AND DRAINED 1000CC OF YELLOW URINE. ACCU-CHECK 209-COVERED WITH HUMALOG 2UNITS SQ AND SCHEDULED LEVEMIR 55UNITS. HS SNACK PROVIDED. CALL LIGHT IN REACH. WILL CONT TO MONITOR.
[2020-02-20] VITALS: BP 104/63
--- NOTE | 2020-02-20 00:24 | NUR ---
PATIENT APPEARS SLEEPING AT THIS TIME POSITIONED ON LEFT SIDE. EYES ARE CLOSED. RESPS ARE EVEN AND UNLABORED. IVF PATENT AND INFUSING AT 20CC/HR VIA RAC SITE. CALL LIGHT IN REACH. WILL CONT TO MONITOR.
[2020-02-20 04:00] VITALS: BP 91/53
--- NOTE | 2020-02-20 04:18 | NUR ---
PATIENT APPEARS SLEEPING AT THIS TIME POSITIONED ON LEFT SIDE-EYES CLOSED. RESPS ARE EVEN AND UNLABORED. IVF PATENT AND INFUSING VIA RAC SITE AT 20CC/HR. TELE MONITOR IN PLACE. CALL LIGHT IN REACH. WILL CONT TO MONITOR.
[2020-02-20 05:55] LABS: HEMATOCRIT 38.5 % (39.0-50.0); HEMOGLOBIN 12.3 g/dl (14.0-18.0); MEAN CELL VOLUME 94.4 fL CALC (80.0-100.0); MEAN CORPUSCULAR HGB 30.1 pG CALC (26.0-32.0); MEAN CORPUSCULAR HGB CONC 31.9 g/dL CAL (32.0-36.0); RED BLOOD COUNT 4.08 mill/uL (4.70-6.10); RED CELL DISTRI WIDTH 12.6 % (11.5-15.5)
[2020-02-20 06:28] LABS: ANION GAP 11 (6-22 (CALC)); BUN 23 mg/dL (8-23); BUN/CREATININE RATIO 19 (12-20 (CALC)); CARBON DIOXIDE 22 mmol/l (22-30); CHLORIDE 111 mmol/l (95-108); CREATININE 1.2 mg/dL (0.7-1.3); GFR 59 ML/MIN (>=60 (CALC)); GFR FOR AFR.AMER. > 60 ML/MIN (>=60 (CALC)); MAGNESIUM 2.1 mg/dL (1.6-2.3); POTASSIUM 4.2 mmol/l (3.5-5.1); SODIUM 140 mmol/l (137-146)
[2020-02-20 07:35] VITALS: BP 110/60
--- NOTE | 2020-02-20 07:35 | NUR ---
PATIENT IN BED DENIES ANY NEEDS AT THIS TIME. PATIENT ENCOURAGED TO STRIGHT CATH MORE THEN 2 X A DAY. PATIENT EDUCATED ON THE BENEFITS. PATIENT DENIES ANY PAIN. FEED MILL TENDER DONE AT THIS TIME CALL LIGHT WITHIN REACH.
[2020-02-20 11:18] VITALS: BP 113/61
--- NOTE | 2020-02-20 12:07 | NUR ---
PATIENT SITTING AT BEDSIDE EATING LUNCH AT THIS TIME. PATIENT IS D/C AND D/C INSTRUCTIONS GONE OVER WITH PATIENT AND PATIENT VERBALIZES UNDERSTANDING OF DISCHARGE INSTRUCTIONS.
--- NOTE | 2020-02-20 12:47 | NUR ---
Discharge instructions given. Patient verbalizes understanding of same. Discharged in stable condition via Wheelchair to Home with *Other. All belongings sent with pt.
== END 2020-02-20 12:48 | disposition home health service (06) ==
LOC: ED 10:23 → ED-I 12:07 → ED 13:50 → ED-I 13:51 → MS2 13:51
PROVIDERS: Nurse Practitioner; ADMIT Internal Medicine; ATTEND Internal Medicine
DX: N39.0 Urinary tract infection, site not specified (principal); B96.20 Unspecified Escherichia coli [E. coli] as the cause of diseases classified elsewhere; R00.1 Bradycardia, unspecified; R31.9 Hematuria, unspecified; J02.0 Streptococcal pharyngitis; I10 Essential (primary) hypertension; E11.9 Type 2 diabetes mellitus without complications; N31.9 Neuromuscular dysfunction of bladder, unspecified; F41.9 Anxiety disorder, unspecified; F32.9 Major depressive disorder, single episode, unspecified; E78.5 Hyperlipidemia, unspecified; J44.9 Chronic obstructive pulmonary disease, unspecified; Z16.12 Extended spectrum beta lactamase (ESBL) resistance; Z79.4 Long term (current) use of insulin; Z87.891 Personal history of nicotine dependence; Z20.828 Contact with and (suspected) exposure to other viral communicable diseases

== ENCOUNTER 2020-03-22 06:43 | Day surgery (SDC) | payer MEDICARE, OTHER ==
[~2020-03-22 06:43] MED LIST changes: +LEVOTHYROXIN50 MCG PO; +PROAIR HFA108 MCG/AC IN; +TOPROL XL25 MG PO; +VITAMIN C500 M6 PO; +VITAMIN D31000 UNI1 PO
[2020-03-22 11:01] VITALS: BP 149/71
== END 2020-03-22 11:30 | disposition home health service (06) ==
LOC: ORM 06:43
PROVIDERS: ATTEND Urology
PROC: 0VB08ZZ Excision of Prostate, Via Natural or Artificial Opening Endoscopic (ICD-10-PCS; principal; 2020-03-22)
PROC: 0VC08ZZ Extirpation of Matter from Prostate, Via Natural or Artificial Opening Endoscopic (ICD-10-PCS; 2020-03-22)
DX: N40.1 Benign prostatic hyperplasia with lower urinary tract symptoms (principal); N13.8 Other obstructive and reflux uropathy; R33.8 Other retention of urine; N42.0 Calculus of prostate; N31.9 Neuromuscular dysfunction of bladder, unspecified; I25.10 Atherosclerotic heart disease of native coronary artery without angina pectoris; I10 Essential (primary) hypertension; E11.9 Type 2 diabetes mellitus without complications; J44.9 Chronic obstructive pulmonary disease, unspecified; F41.9 Anxiety disorder, unspecified; F32.9 Major depressive disorder, single episode, unspecified; E78.5 Hyperlipidemia, unspecified; Z79.4 Long term (current) use of insulin; Z87.891 Personal history of nicotine dependence; Z96.0 Presence of urogenital implants; Z20.822 Contact with and (suspected) exposure to COVID-19

== ENCOUNTER 2020-03-24 16:29 | Emergency (ER) | payer MEDICARE, OTHER ==
[~2020-03-24] VITALS: Ht 177.8 cm; Wt 111.0 kg
[2020-03-24 19:00] VITALS: BP 121/69
== END 2020-03-24 19:10 | disposition home or self-care (01) ==
LOC: ED 16:29
DX: T83.091A Other mechanical complication of indwelling urethral catheter, initial encounter (principal); I10 Essential (primary) hypertension; E11.9 Type 2 diabetes mellitus without complications; Y84.6 Urinary catheterization as the cause of abnormal reaction of the patient, or of later complication, without mention of misadventure at the time of the procedure; Z79.4 Long term (current) use of insulin

== ENCOUNTER 2020-04-22 13:50 | Observation (INO) | payer MEDICARE, OTHER ==
[~2020-04-22] VITALS: Ht 177.8 cm; Wt 114.0 kg
[2020-04-22 14:09] VITALS: BP 139/76
--- NOTE | 2020-04-22 14:46 | NUR ---
PT ARRIVED VIA WC ACCOMPANIED BY STAFF. A&O X3. NO DISTRESS. PT DENIES ANY PAIN AT THIS TIME. PT REPORTS INCREASING WEAKNESS. PT CURRENTLY WAS REC [facility]. PT OPEN TO BEING D/C TO REHAB. TINNING MACHINE SET UP OPERATOR PLACED. TRACE EDEMA TO BLE. BM 04/20/20. PT REPORTS HAVING TURP PROCEDURE LAST MONTH. PT REPORTS TO SELF CATH AT HOME. HOME SELF CATH SUPPLIES BROUGHT TO PATIENT. LES JONES OFFERED BUT REFUSED. ASSESSMENT COMPLETED. DISCUSSED POC. CALL LIGHT LEFT WITHIN REACH.
--- NOTE | 2020-04-22 14:48 | NUR ---
#20 TO OUTER LAC INITIATED X1 ATTEMT BY THIS WIRTER. 10 CC OF BLOOD DRAWN BACK AND WASTED. 10 CC DRAWN FOR BLOOD SAMPLE. IV SITE FLUSHED WITH 10 CC OF NS. IV HEALTHY AND PATENT. PCR SWAB OBTAINED FROM BOTH NARES, PT TOLERATED WELL.
--- NOTE | 2020-04-22 14:55 | NUR ---
KRISS PT AT BEDSIDE FOR ADMISSION SANCHEZ
[2020-04-22 14:58] LABS: HEMATOCRIT 34.8 % (39.0-50.0); HEMOGLOBIN 11.5 g/dl (14.0-18.0); IMMATURE GRANULOCYTES 0.3 % (0.0-5.0); MEAN CORPUSCULAR HGB 30.7 pG CALC (26.0-32.0); NEUT# 6.15 thou/uL (1.82-7.42); RED BLOOD COUNT 3.74 mill/uL (4.70-6.10); RED CELL DISTRI WIDTH 12.9 % (11.5-15.5)
[2020-04-22 15:19] LABS: ALBUMIN 3.9 g/dL (3.2-5.0); ALKALINE PHOSPHATASE 67 u/l (38-126); ANION GAP 15 (6-22 (CALC)); BILIRUBIN, TOTAL 0.6 mg/dL (0.0-1.4); BUN 22 mg/dL (8-23); BUN/CREATININE RATIO 23 (12-20 (CALC)); CARBON DIOXIDE 23 mmol/l (22-30); CHLORIDE 106 mmol/l (95-108); GFR > 60 ML/MIN (>=60 (CALC)); GFR FOR AFR.AMER. > 60 ML/MIN (>=60 (CALC)); POTASSIUM 4.4 mmol/l (3.5-5.1); SGOT/AST 22 u/l (19-48); SODIUM 139 mmol/l (137-146); TOTAL PROTEIN 6.8 g/dL (6.3-8.2)
[2020-04-22] MEDS ORDERED: BUSPIRONE5 MG PO (15:20)
--- NOTE | 2020-04-22 16:59 | NUR ---
PT TAKEN DOWN TO RADIOLOGY VIA WC ACCOMPANIED BY LIZETTE LADD
--- NOTE | 2020-04-22 17:20 | NUR ---
URINE SAMPLE OBTAINED FROM SELF CATH. LABELED, SENT TO LAB.
[2020-04-22 17:32] LABS: URINE BILIRUBIN - DIPSTICK NEGATIVE (NEGATIVE); URINE BLOOD DIPSTICK SMALL (NEGATIVE); URINE CLARITY CLEAR; URINE COLOR YELLOW; URINE GLUCOSE - DIPSTICK NEGATIVE (NEGATIVE); URINE KETONE NEGATIVE (NEGATIVE); URINE LEUK ESTERASE SMALL (Negative); URINE NITRITE - DIPSTICK NEGATIVE (Negative); URINE PROTEIN - DIPSTICK TRACE mg/dL (NEG-TRACE); URINE SPECIFIC GRAVITY >=1.030; URINE UROBILINOGEN - DIPSTICK 0.2 E.U./dL (0.2)
[2020-04-22 19:00] VITALS: BP 148/76
--- NOTE | 2020-04-22 20:00 | NUR ---
RECEIVED REPORT FROM NURSE FELY PATIENT ALERT ORIENTED, BREATHING UNLABORED WITH SALIN LOCK ON LAC PATENT FLUSHES WELL, REMAINS ON TELE SB 59, LBM 04/20, BS 173, DENIES PAIN OR DISCOMFORTS AT THIS TIME, ACTIVE BOWEL SOUNDS, NOTED TO HAVE TRACE OF EDEMA ON BLE, CALL LIGHT AT REACH.
[2020-04-23] VITALS: BP 145/65
--- NOTE | 2020-04-23 | NUR ---
PATIENT APPEARS TO BE SLEEPING WITH EYES CLOSED NO DISCOMFORTS NOTED AT THIS TIME, BREATHING UNLABORED CALL LIGHT AT REACH.
[2020-04-23 04:00] VITALS: BP 121/64
--- NOTE | 2020-04-23 04:26 | NUR ---
PATIENT RESTING IN BED, DENIES PAIN OR DISCOMFRTS BREATHING UNLABORED CALL LIGHT AT REACH.
[2020-04-23 05:43] LABS: HEMATOCRIT 34.9 % (39.0-50.0); HEMOGLOBIN 11.4 g/dl (14.0-18.0); IMMATURE GRANULOCYTES 0.2 % (0.0-5.0); MEAN CELL VOLUME 94.1 fL CALC (80.0-100.0); MEAN CORPUSCULAR HGB 30.7 pG CALC (26.0-32.0); MEAN CORPUSCULAR HGB CONC 32.7 g/dL CAL (32.0-36.0); NEUT# 4.65 thou/uL (1.82-7.42); RED BLOOD COUNT 3.71 mill/uL (4.70-6.10); RED CELL DISTRI WIDTH 12.8 % (11.5-15.5)
[2020-04-23 06:09] LABS: ALBUMIN 3.6 g/dL (3.2-5.0); ALKALINE PHOSPHATASE 60 u/l (38-126); ANION GAP 12 (6-22 (CALC)); BILIRUBIN, TOTAL 0.5 mg/dL (0.0-1.4); BUN 21 mg/dL (8-23); BUN/CREATININE RATIO 20 (12-20 (CALC)); CARBON DIOXIDE 25 mmol/l (22-30); CHLORIDE 107 mmol/l (95-108); CREATININE 1.1 mg/dL (0.7-1.3); GFR > 60 ML/MIN (>=60 (CALC)); GFR FOR AFR.AMER. > 60 ML/MIN (>=60 (CALC)); MAGNESIUM 2.1 mg/dL (1.6-2.3); POTASSIUM 4.1 mmol/l (3.5-5.1); SGOT/AST 22 u/l (19-48); SODIUM 139 mmol/l (137-146); TOTAL PROTEIN 6.4 g/dL (6.3-8.2)
--- NOTE | 2020-04-23 07:30 | NUR ---
RECIEVED REPORT FROM SAROJ IROS
[2020-04-23 08:03] VITALS: BP 155/72
--- NOTE | 2020-04-23 08:03 | NUR ---
PT RESTING IN SEMI FOWLERS POSITION. PT IS A/O X3. ASSESSMENT AND VITALS COMPLETED. BP 155/72, HR 55, O2 97% ON ROOM AIR. RESPIRATIONS ARE EVEN AND UNLABORED WITH NO DISTRESS NOTED. HEART RHYTHM NORMAL WITH TELE IN PLACE.BOWEL SOUNDS ARE ACTIVE, LAST REPORETD BM 04/20/20. PT REFUSES MOM TO ASSIST. PT INFORMED OF NEEDED STOOL SAMPLES. RADIAL AND PEDAL PULSES STRONG. #20G IN LAC FLUSHED, SITE APPEARS HEALTHY AND PATENT. SKIN IS WAMR AND INTACT. KNEE BRACE TO LEFT KNEE. PT SELF STRAIGHT CATH. PT INFORMED OF NEEDING TO KNOW OUTPUT. PT VERBALIZED UNDERSTANDING. PT DENIES OF ANY PAINS OR DISCOMFORTS. ALL SAFETY PRECAUTIONS ARE IN PLACE WITH CALL LIGHT IN REACH. ENCOURAGED PT TO CALL FOR ASSISTANCE. WILL CONTINUE TO MONITOR.
--- NOTE | 2020-04-23 09:00 | NUR ---
MORNING MEDICATIONS ADMINISTERED. ORDERED TO HOLD NORVASC 10 MG DUE TO LOW HR. ACCU CHECK REUSLTING IN 129.
--- NOTE | 2020-04-23 09:40 | NUR ---
DR BYNUM AND SANG NAYLOR AT BEDSIDE.
--- NOTE | 2020-04-23 10:43 | NUR ---
PT AMBULATING HALLS WITH PHYSICAL THERAPY
[2020-04-23 10:50] VITALS: BP 141/68
--- NOTE | 2020-04-23 11:31 | NUR ---
PT SITTING IN CHAIR WATCHING TV. RESPIRATIONS ARE EVEN AND UNLABORED ON ROOM AIR, NO DISTRESS NOTED. #20G IN LAC REMAINS HEALTHY AND PATENT.TELE MONITORING IN PLACE. PT DENIES OF ANY PAINS OR DISCOMFORTS AT THIS TIME. ALL SAFETY PRECAUTIONS ARE IN PLACE WITHC ALL LIGHT IN REACH. PT INSTRUCTED TO CALL FOR ASSISTANCE. WILL CONTINUE TO MONITOR.
--- NOTE | 2020-04-23 11:58 | NUR ---
Pt seen this am for treatment. He was without complaints voiced, sittin OOB in chair. BP 141/68 O2 97%. Pt moved sit to stand with supervision and ambulated x 60' with RW and CGA, L knee giving at times. Pt had difficulty with second stand but performed able to stand without assist. Second walk x 25', pt edurance poor. LE ex performed sitting x 20 reps and UE x 10 reps. Pt left in chair with call collado and bedside tray in reach. [facility] 14
[2020-04-23 15:05] VITALS: BP 131/57
--- NOTE | 2020-04-23 16:00 | NUR ---
PT RESTING IN CHAIR WATCHING TV. RESPIRATIONS ARE EVEN AND UNLABORED ON ROOM AIR. #20G IN LAC REMAINS HEALTHY AND PATENT. TELE MONITORING IN PLACE, PT DENIES OF ANY PAINS OR DISCOMFORTS AT THIS TIME. ALL SAFETY PRECAUTIONS ARE IN PLACE WITH CALL LIGHT IN REACH. WILL CONTINUE TO MONITOR.
--- NOTE | 2020-04-23 17:30 | NUR ---
NO OUTPUT RECORDED. DIVISION OFFICER [employer]APONS DEPARTMENT ASKED PT IF HE HAD STRAIGHT CATH TODAY, PT STATED " NOT YET." STRAIGHT CATH PREFORMED BY PT, 700 OF VILMA URINE NOTED.
[2020-04-23 19:00] VITALS: BP 140/71
--- NOTE | 2020-04-23 19:25 | NUR ---
PT RESTING IN BED WITH LIGHTS TURNED DOWN AND TV ON. NO S/O DISTRESS ARE NOTED. WILL FOLLOW-UP WITH MEDICATIONS ORDERS PROVIDE AND ASSESSMENT. CALL LIGHT IS IN PT HAND.
--- NOTE | 2020-04-23 21:04 | NUR ---
PT MEDICATED ORDERS PROVIDE AND ASSESSMENT COMPLETED AT THIS TIME. PT LOCX3, TRACE EDEMA THROUGHOUT, LUNG SOUNDS WERE CLEAR, HYPERACTIVE BOWEL SOUNDS TO ABD, REPORTS LAST STOOL OUTPUT 3 DAYS PRIOR, BUT REPORTS THIS IS NORMAL FOR HIM AND DENIES NEED FOR MILK OF MAG AT THIS TIME. NEURO'S ARE INTACT AT THIS TIME. CALL LIGHT AT SIDE AND PT REMINDED TO CALL NEEDS ARISE, VERBALIZED UNDERSTANDING AT THIS TIME.
[2020-04-24] VITALS: BP 119/54
--- NOTE | 2020-04-24 03:21 | NUR ---
PT SLEEPING, NO S/O DISTRESS NOTED AT THIS TIME. CALL LIGHT AND STRAIGHT CATH SUPPLIES ARE AT BEDSIDE.
[2020-04-24 04:00] VITALS: BP 120/52
[2020-04-24 05:47] LABS: HEMATOCRIT 36.8 % (39.0-50.0); HEMOGLOBIN 11.9 g/dl (14.0-18.0); MEAN CELL VOLUME 93.9 fL CALC (80.0-100.0); MEAN CORPUSCULAR HGB 30.4 pG CALC (26.0-32.0); MEAN CORPUSCULAR HGB CONC 32.3 g/dL CAL (32.0-36.0); RED BLOOD COUNT 3.92 mill/uL (4.70-6.10); RED CELL DISTRI WIDTH 12.9 % (11.5-15.5)
[2020-04-24 06:07] LABS: ANION GAP 20 (6-22 (CALC)); BUN 22 mg/dL (8-23); BUN/CREATININE RATIO 19 (12-20 (CALC)); CARBON DIOXIDE 24 mmol/l (22-30); CHLORIDE 99 mmol/l (95-108); CREATININE 1.2 mg/dL (0.7-1.3); GFR 59 ML/MIN (>=60 (CALC)); GFR FOR AFR.AMER. > 60 ML/MIN (>=60 (CALC)); MAGNESIUM 2.1 mg/dL (1.6-2.3); POTASSIUM 4.3 mmol/l (3.5-5.1); SODIUM 139 mmol/l (137-146)
[2020-04-24 08:30] VITALS: BP 158/82
--- NOTE | 2020-04-24 08:30 | NUR ---
PATIENT RESTING IN THE BED AXOX3. DENIES ANY PAIN AT THIS TIME. NO SOB. REPOSITIOEND FOR COMFORT, SIDE RAISL UP CALL LIGHT IN REACH BED LOCKED IN LOW POSITION, WILL CONTINUE TO MONIOTR THE PATIENT. ALL SAFTY MEASURES IN PLACE.
--- NOTE | 2020-04-24 08:55 | NUR ---
Pt seen this am for treatment. Pt c/o weakness. Gait with RW 2x 50' with CGA, L knees sixto at time with pt able to correct. Supine to sit with use of bed rails. Sit to stand with CGA/min, pt had increase difficulty from BS chair vs bed. LE ex performed in sitting x 20 reps. Pt left in chair with call collado and bedside tray in reach. Gait belt use with mobility activities. [facility] 14
--- NOTE | 2020-04-24 10:51 | NUR ---
Pt oriendted x4 and sitting in recliner. Pt was instructed in performing functional mobility to the sink for hygiene and grooming activity. Pt utilized 2ww and with CGA made it to sink and washed his face and his teeth however was getting too tired and had to get back to recliner to finish. Once seated pt combed his hair and performed some UB AROM including shoulder flexion and horizontal abduction. Pt left sitting in recliner with call light at reach. [facility]
[2020-04-24 11:15] VITALS: BP 133/71
--- NOTE | 2020-04-24 12:27 | NUR ---
PT HAD A LARGE SOFT STOOL. SAMPLE SENT TO THE LAB. PATIENT SITTING UP COMFORTABLE IN THE BEDSIDE CHAIR. NO DISTRESS NOTED AT THIS TIME. WILL CONTINUE TO MONITOR THE PATIENT.
--- NOTE | 2020-04-24 15:06 | NUR ---
HL REMOVED TIP IN TACK. TELE REMOVED , PT IS TO BE DISCHARGED TO THE REHAB.
== END 2020-04-24 16:23 ==
LOC: MS2 13:50
PROVIDERS: Nurse Practitioner; ADMIT Internal Medicine; ATTEND Internal Medicine
DX: R53.1 Weakness (principal); R62.7 Adult failure to thrive; D64.9 Anemia, unspecified; E11.9 Type 2 diabetes mellitus without complications; I10 Essential (primary) hypertension; I25.10 Atherosclerotic heart disease of native coronary artery without angina pectoris; E78.5 Hyperlipidemia, unspecified; J44.9 Chronic obstructive pulmonary disease, unspecified; N31.9 Neuromuscular dysfunction of bladder, unspecified; F41.9 Anxiety disorder, unspecified; F32.9 Major depressive disorder, single episode, unspecified; M19.90 Unspecified osteoarthritis, unspecified site; Z68.33 Body mass index [BMI] 33.0-33.9, adult; Z87.891 Personal history of nicotine dependence; Z87.440 Personal history of urinary (tract) infections; Z79.4 Long term (current) use of insulin; Z20.822 Contact with and (suspected) exposure to COVID-19

== ENCOUNTER 2020-12-04 13:47 | Observation (INO) | payer MEDICARE, MEDICAID ==
[~2020-12-04] VITALS: Ht 177.8 cm; Wt 113.0 kg
[~2020-12-04 13:47] MED LIST changes: +METFORMIN500 M2 PO
[2020-12-04] MEDS ORDERED: LEVOTHYROXIN50 MC1 PO (13:50)
[2020-12-04] MEDS ORDERED: [UNRECOGNIZED DRUG - OTHER] (13:52)
[2020-12-04] MEDS ORDERED: BUSPIRONE HCL5 MG PO (13:54)
[2020-12-04] MEDS ORDERED: LISINOPRIL20 M1 PO (13:55)
[2020-12-04 13:58] VITALS: BP 127/68
[2020-12-04] MEDS ORDERED: LEVEMIR FL100 UNIT/M SC (14:00)
[2020-12-04] MEDS ORDERED: PROAIR HFA IN (14:02)
[2020-12-04 14:54] LABS: HEMATOCRIT 37.1 % (39.0-50.0); HEMOGLOBIN 12.3 g/dl (14.0-18.0); IMMATURE GRANULOCYTES 0.1 % (0.0-5.0); MEAN CELL VOLUME 96.1 fL CALC (80.0-100.0); MEAN CORPUSCULAR HGB 31.9 pG CALC (26.0-32.0); MEAN CORPUSCULAR HGB CONC 33.2 g/dL CAL (32.0-36.0); NEUT# 6.19 thou/uL (1.82-7.42); RED BLOOD COUNT 3.86 mill/uL (4.70-6.10); RED CELL DISTRI WIDTH 12.9 % (11.5-15.5)
[2020-12-04 15:16] LABS: ALKALINE PHOSPHATASE 63 u/l (38-126); ANION GAP 15 (6-22 (CALC)); BILIRUBIN, TOTAL 0.4 mg/dL (0.0-1.4); BUN 26 mg/dL (8-23); BUN/CREATININE RATIO 19 (12-20 (CALC)); C-REACTIVE PROTEIN < 0.5 mg/dL (0-0.9); CARBON DIOXIDE 24 mmol/l (22-30); CHLORIDE 105 mmol/l (95-108); CREATININE 1.4 mg/dL (0.7-1.3); GFR 50 ML/MIN (>=60 (CALC)); GFR FOR AFR.AMER. 60 ML/MIN (>=60 (CALC)); POTASSIUM 4.6 mmol/l (3.5-5.1); SGOT/AST 24 u/l (19-48); SODIUM 139 mmol/l (137-146); TOTAL PROTEIN 6.9 g/dL (6.3-8.2)
[2020-12-04 16:45] VITALS: BP 127/60
[2020-12-04 19:00] VITALS: BP 152/66
[2020-12-05 04:00] VITALS: BP 123/60
[2020-12-05 07:46] LABS: ANION GAP 10 (6-22 (CALC)); BUN 21 mg/dL (8-23); BUN/CREATININE RATIO 17 (12-20 (CALC)); CARBON DIOXIDE 26 mmol/l (22-30); CHLORIDE 109 mmol/l (95-108); CREATININE 1.3 mg/dL (0.7-1.3); GFR 54 ML/MIN (>=60 (CALC)); GFR FOR AFR.AMER. > 60 ML/MIN (>=60 (CALC)); POTASSIUM 4.8 mmol/l (3.5-5.1); SODIUM 140 mmol/l (137-146)
[2020-12-05 08:40] VITALS: BP 143/68
[2020-12-05 17:09] VITALS: BP 160/72
[2020-12-05 19:00] VITALS: BP 152/70
[2020-12-06 03:45] VITALS: BP 132/62
[2020-12-06 05:44] LABS: HEMATOCRIT 36.3 % (39.0-50.0); HEMOGLOBIN 12.2 g/dl (14.0-18.0); MEAN CELL VOLUME 95.8 fL CALC (80.0-100.0); MEAN CORPUSCULAR HGB 32.2 pG CALC (26.0-32.0); MEAN CORPUSCULAR HGB CONC 33.6 g/dL CAL (32.0-36.0); RED BLOOD COUNT 3.79 mill/uL (4.70-6.10); RED CELL DISTRI WIDTH 12.6 % (11.5-15.5)
[2020-12-06 06:14] LABS: ANION GAP 12 (6-22 (CALC)); BUN 18 mg/dL (8-23); BUN/CREATININE RATIO 18 (12-20 (CALC)); CARBON DIOXIDE 23 mmol/l (22-30); CHLORIDE 110 mmol/l (95-108); GFR > 60 ML/MIN (>=60 (CALC)); GFR FOR AFR.AMER. > 60 ML/MIN (>=60 (CALC)); POTASSIUM 4.4 mmol/l (3.5-5.1); SODIUM 141 mmol/l (137-146)
[2020-12-06 07:20] VITALS: BP 130/60
[2020-12-06 10:43] VITALS: BP 143/65
[2020-12-06] MEDS ORDERED: MACROBID100 M1 PO (10:52)
== END 2020-12-06 11:59 | disposition home health service (06) ==
LOC: MS2 13:47
PROVIDERS: Nurse Practitioner; ADMIT Internal Medicine; ATTEND Internal Medicine
DX: T83.518A Infection and inflammatory reaction due to other urinary catheter, initial encounter (principal); N39.0 Urinary tract infection, site not specified; B96.20 Unspecified Escherichia coli [E. coli] as the cause of diseases classified elsewhere; Z16.12 Extended spectrum beta lactamase (ESBL) resistance; N31.9 Neuromuscular dysfunction of bladder, unspecified; I10 Essential (primary) hypertension; E11.9 Type 2 diabetes mellitus without complications; J44.9 Chronic obstructive pulmonary disease, unspecified; M19.90 Unspecified osteoarthritis, unspecified site; F41.9 Anxiety disorder, unspecified; F32.A Depression, unspecified; E78.5 Hyperlipidemia, unspecified; R33.9 Retention of urine, unspecified; Y84.8 Other medical procedures as the cause of abnormal reaction of the patient, or of later complication, without mention of misadventure at the time of the procedure; Z23 Encounter for immunization; Z87.440 Personal history of urinary (tract) infections; Z79.4 Long term (current) use of insulin; Z87.891 Personal history of nicotine dependence; Z79.84 Long term (current) use of oral hypoglycemic drugs; Z20.822 Contact with and (suspected) exposure to COVID-19
CPT/HCPCS: Q3014

== ENCOUNTER 2020-12-29 10:33 | Observation (INO) | payer MEDICARE, MEDICAID ==
[~2020-12-29] VITALS: Ht 177.8 cm; Wt 115.0 kg
[~2020-12-29 10:33] MED LIST changes: +BUSPIRONE HCL5 MG PO; +LEVOTHYROXIN50 MC1 PO; +LISINOPRIL20 M1 PO; +MACROBID100 M1 PO; +PROAIR HFA IN; +[UNRECOGNIZED DRUG - OTHER]
--- NOTE | 2020-12-29 10:33 | NUR ---
PT TO ROOM 10 VIA EMS
[2020-12-29] MEDS ORDERED: HIPREX1 GM PO (10:52)
--- NOTE | 2020-12-29 11:00 | NUR ---
PT'S DAUGHTER ARRIVES AND IS AT THE BEDSIDE.
--- NOTE | 2020-12-29 11:24 | NUR ---
STRAIGHT CATH PERFORMED BY THIS RN FOR COLLECTION OF URINE SAMPLE. COLLECTED WITHOUT DIFFICULTY, PT TOLERATED WELL.
[2020-12-29 11:38] LABS: URINE BILIRUBIN - DIPSTICK NEGATIVE (NEGATIVE); URINE BLOOD DIPSTICK SMALL (NEGATIVE); URINE COLOR YELLOW; URINE GLUCOSE - DIPSTICK >=1000 mg/dL (NEGATIVE); URINE KETONE TRACE mg/dL (NEGATIVE); URINE LEUK ESTERASE TRACE (NEGATIVE); URINE NITRITE - DIPSTICK POSITIVE (Negative); URINE PROTEIN - DIPSTICK NEGATIVE (NEG-TRACE); URINE UROBILINOGEN - DIPSTICK 0.2 E.U./dL (0.2)
[2020-12-29 11:40] LABS: HEMATOCRIT 37.9 % (39.0-50.0); HEMOGLOBIN 12.4 g/dl (14.0-18.0); IMMATURE GRANULOCYTES 0.2 % (0.0-5.0); MEAN CELL VOLUME 96.4 fL CALC (80.0-100.0); MEAN CORPUSCULAR HGB 31.6 pG CALC (26.0-32.0); MEAN CORPUSCULAR HGB CONC 32.7 g/dL CAL (32.0-36.0); NEUT# 6.92 thou/uL (1.82-7.42); RED BLOOD COUNT 3.93 mill/uL (4.70-6.10); RED CELL DISTRI WIDTH 12.7 % (11.5-15.5)
[2020-12-29 11:44] LABS: URINE BACTERIA MANY hpf; URINE SQUAMOUS EPITHELIAL CELL FEW EPI/hpf (0-FEW); URINE WBC >100 WBC/hpf (0-5)
[2020-12-29 11:54] LABS: ALBUMIN 4.2 g/dL (3.2-5.0); ALKALINE PHOSPHATASE 65 u/l (38-126); ANION GAP 14 (6-22 (CALC)); BUN 24 mg/dL (8-23); BUN/CREATININE RATIO 21 (12-20 (CALC)); CARBON DIOXIDE 23 mmol/l (22-30); CHLORIDE 103 mmol/l (95-108); CREATININE 1.2 mg/dL (0.7-1.3); GFR 59 ML/MIN (>=60 (CALC)); GFR FOR AFR.AMER. > 60 ML/MIN (>=60 (CALC)); LIPASE 92 u/l (23-300); POTASSIUM 4.3 mmol/l (3.5-5.1); SGOT/AST 24 u/l (19-48); SODIUM 136 mmol/l (137-146); TOTAL PROTEIN 7.2 g/dL (6.3-8.2)
[2020-12-29 12:00] LABS: BILIRUBIN, TOTAL 0.7 mg/dL (0.0-1.4)
[2020-12-29 12:04] LABS: ACT PARTIAL THROMBO TIME 21.1 SECONDS (20.0-32.5); PROTHROMBIN TIME 10.2 SECONDS (9.0-12.5)
--- NOTE | 2020-12-29 12:20 | NUR ---
PT RESTING, DENIES PAIN. CALL LIGHT IN REACH
--- NOTE | 2020-12-29 13:19 | NUR ---
PT WATCHING TV. PT STABLE, AWARE OF POC.
--- NOTE | 2020-12-29 13:57 | NUR ---
PT AWARE OF ADMISSION, ABX RUNNING ORDER, IV SITE LAC, CDI. PT DENIES ANY PAIN. PT STABLE.
--- NOTE | 2020-12-29 14:45 | NUR ---
PT WATCHING TV, DENIES NEEDS, PT STABLE.
--- NOTE | 2020-12-29 15:27 | NUR ---
SBAR REPORT CALLED TO SAROJ MOE ON MED/SURG. PT TO GO TO ROOM 273.
--- NOTE | 2020-12-29 15:42 | NUR ---
PT TAKEN TO MED/SURG ROOM 273 VIA STRETCHER. ALL BELONGINGS AND PAPERWORK HANDED OFF TO STAFF. PT IN STABLE CONDITION AT TIME OF ADMISSION.
--- NOTE | 2020-12-29 15:43 | NUR ---
PATIENT CAME FROM ER VIA STRETCHER. X2 PERSON ASSISTED PATIENT TO THE BED. CALL LIGHT IN REACH.
[2020-12-29 16:00] VITALS: BP 162/77
--- NOTE | 2020-12-29 16:02 | NUR ---
ASSESSMENT DONE. PATIENT IS ALERT AND ORIENT X3. PATIENT DENIES PAIN. TELE IN PLACE TELE #[id number]. RESPS EVEN AND UNLABORED. PATIENT DENIES SOB. PATIENT STATED HE FEELS WEAK. SAFETY PRECAUTIONS REINFORCES. PATIENT STATED HE SELF CATH EVERY 4-6 HRS. PO FLUIDS PROVIDED. PATIENT DENIES ANY OTHER NEEDS . CALL LIGHT IN REACH.
[2020-12-29 19:00] VITALS: BP 149/76
--- NOTE | 2020-12-29 19:00 | NUR ---
REPORT RECEIVED FROM Cheko SANTANA RN
--- NOTE | 2020-12-29 19:35 | NUR ---
ASSEMENT COMPLETED AT THIS TIME. PATIENT ALERT AND ORIENTED X3. #20LAC SL. LAST REPORTED BOWEL MOVEMENT 12/28. CLEAR RESPIRATIONS, REGULAR HEART SOUNDS. LAST TELE READING SR 63. PATIENT SELF CATHS EVERY 4-6 HOURS, FOR THE PAST 6 YEARS OR SO. CALL LIGHT AND BEDSIDE TABLE WITHIN REACH.
[2020-12-30] VITALS: BP 141/62
--- NOTE | 2020-12-30 | NUR ---
PATIENT REQUESTING COFFEE, WRITTER PROVIDED. VOICES NO OTHER REQUESTS/COMPLIAINS. CALL LIGHT AND BEDSIDE TABLE WITHIN REACH.
[2020-12-30 04:00] VITALS: BP 118/60
--- NOTE | 2020-12-30 04:51 | NUR ---
PATIENT SLEEPING, AWOKEN BY WRITTER. VOICES NOT COMPLAINTS AT THIS TIME. CALL LIGHT AND BEDSIDE TABLE WITHIN REACH.
[2020-12-30 05:09] LABS: HEMATOCRIT 37.8 % (39.0-50.0); HEMOGLOBIN 12.3 g/dl (14.0-18.0); MEAN CELL VOLUME 96.4 fL CALC (80.0-100.0); MEAN CORPUSCULAR HGB 31.4 pG CALC (26.0-32.0); MEAN CORPUSCULAR HGB CONC 32.5 g/dL CAL (32.0-36.0); RED BLOOD COUNT 3.92 mill/uL (4.70-6.10); RED CELL DISTRI WIDTH 12.8 % (11.5-15.5)
[2020-12-30 05:56] LABS: ANION GAP 12 (6-22 (CALC)); BUN 19 mg/dL (8-23); BUN/CREATININE RATIO 18 (12-20 (CALC)); CARBON DIOXIDE 26 mmol/l (22-30); CHLORIDE 107 mmol/l (95-108); CREATININE 1.1 mg/dL (0.7-1.3); GFR > 60 ML/MIN (>=60 (CALC)); GFR FOR AFR.AMER. > 60 ML/MIN (>=60 (CALC)); MAGNESIUM 2.1 mg/dL (1.6-2.3); POTASSIUM 4.4 mmol/l (3.5-5.1); SODIUM 140 mmol/l (137-146)
[2020-12-30 08:00] VITALS: BP 156/65
--- NOTE | 2020-12-30 08:00 | NUR ---
PT AWAKE IN ROOM UPON ENTERING ROOM. A&O X3. S1&S2 HEARD, SR. BREATHING WAS EVEN AND UNLABORED. LUNG SOUNDS WERE CLEAR UPPER/LOWER LOBES. BOWEL SOUNDS X4. PT STATES SELF CATH AT HOME. BLOOD SUGAR WAS 105 THIS MORNING. NO UNITS WERE NEEDED PER SLIDING SCALE. PT ALSO STATES SPASMS ON THE LEFT LEG. TELE MONITOR IS IN PLACE. RADIAL PULSES ARE STRONG EQUALLY BILATERALLY. PEDAL PULSES WEAK EQUALLY BILATERALLY. CALL LIGHT WITHIN REACH.
--- NOTE | 2020-12-30 10:38 | NUR ---
PHYSICAL THERAPY AND OT AT BEDSIDE FOR CONSULTATION
--- NOTE | 2020-12-30 10:40 | NUR ---
DR FAUST AND Rome KNIGHT ASSISTANT AT BEDSIDE DISCUSSING POC
[2020-12-30 11:16] VITALS: BP 176/76
--- NOTE | 2020-12-30 12:00 | NUR ---
PT EATING LUNCH. DENIES ANY PAIN AND ANY PAIN WITH URINATION. TELE MONITOR IN PLACE. CALL LIGHT WITHIN REACH.
[2020-12-30 15:31] VITALS: BP 143/61
--- NOTE | 2020-12-30 16:00 | NUR ---
PT RESTING IN BED. DENIES ANY PAIN AT THIS TIME. TELE MONITOR IN PLACE. IV SITE STILL INTACT. CALL LIGHT WITHIN REACH.
[2020-12-30 19:00] VITALS: BP 134/67
--- NOTE | 2020-12-30 19:20 | NUR ---
INFANTRY OPERATIONS SPECIALIST IS IN WITH PT ASSISTING HIM WITH AIDE OF A WALKER AMBULATE FROM RESTROOM BACK TO THE BED. ASSESSMENT COMPLETED AT THIS TIME. IV ABX COMPLETE AT THIS TIME. IV FLUSHED PATENT. PT DENIES PAIN OR DISTRESS AT THIS TIME. CALL LIGHT IS IN HAND AND PT ENCOURAGED TO CALL NEEDS ARISE.
--- NOTE | 2020-12-30 19:58 | NUR ---
pt educated on the need of establishing a new IV site to reduce the risk of infection with EMS site; pt agreeable. New IV placement unsuccessful at this time x2. EMS site redressed. IV remains healthy and patent with good blood return. No other needs at this time. call light within reach.
--- NOTE | 2020-12-30 20:35 | NUR ---
PT MEDICATED ORDERS PROVIDE. PT IS ASKING FOR HOME MEDICATIONS, PHYSICIAN NOTIFIED OF NEED FOR MEDICATION ORDERS, NEW ORDERS WERE PLACED, AWAITING PHARMACY VERIFICATION. PT ASKED FOR VASELINE FOR DRY CHAPPED LIPS/WATER BASED LUBRICANT PROVIDED, SHE STATED THE LIP BALM DID NOT WORK. DENIES ANY OTHER NEEDS AT THIS TIME. IV ANTIBIOTIC THERAPY ADMINSTERED AT THIS TIME.
--- NOTE | 2020-12-30 20:40 | NUR ---
PT MEDICATED ORDERS PROVIDE AND ASSESSMENT HAS BEEN COMPLETED. PT DENIES ANY NEEDS AT THIS TIME. CALL LIGHT AT SIDE W/IN REACH AND PT ENCOURAGED TO CALL NEEDS ARISE.
[2020-12-31 00:13] VITALS: BP 114/55
--- NOTE | 2020-12-31 00:14 | NUR ---
PT SLEEPING, NO S/O DISTRESS NOTED. LIGHTS AND TV ARE OFF. CALL LIGHT W/IN REACH.
--- NOTE | 2020-12-31 02:11 | NUR ---
pt sleeping at this time. no s/o distress noted. resp even non-labored. call light at side.
[2020-12-31 05:05] VITALS: BP 121/56
--- NOTE | 2020-12-31 05:35 | NUR ---
PT MEDICATED ORDERS PROVIDE, NO S/O DISTRESS. DENIES ANY NEEDS OF ASSISTANCE AT THIS TIME. CALL LIGHT AT SIDE W/IN REACH AND PT ENCOURAGED TO CALL NEEDS ARISE.
[2020-12-31 05:54] LABS: HEMATOCRIT 37.1 % (39.0-50.0); HEMOGLOBIN 12.2 g/dl (14.0-18.0); MEAN CELL VOLUME 96.1 fL CALC (80.0-100.0); MEAN CORPUSCULAR HGB 31.6 pG CALC (26.0-32.0); MEAN CORPUSCULAR HGB CONC 32.9 g/dL CAL (32.0-36.0); RED BLOOD COUNT 3.86 mill/uL (4.70-6.10); RED CELL DISTRI WIDTH 12.7 % (11.5-15.5)
[2020-12-31 06:10] LABS: ANION GAP 13 (6-22 (CALC)); BUN 22 mg/dL (8-23); BUN/CREATININE RATIO 20 (12-20 (CALC)); CARBON DIOXIDE 24 mmol/l (22-30); CHLORIDE 108 mmol/l (95-108); CREATININE 1.1 mg/dL (0.7-1.3); GFR > 60 ML/MIN (>=60 (CALC)); GFR FOR AFR.AMER. > 60 ML/MIN (>=60 (CALC)); MAGNESIUM 2.2 mg/dL (1.6-2.3); POTASSIUM 4.6 mmol/l (3.5-5.1); SODIUM 141 mmol/l (137-146)
--- NOTE | 2020-12-31 08:00 | NUR ---
PT AWAKE WATCHING TV UPON ENTERING THE ROOM. ASSESSMENT PERFORMED: A&O X3, S1&S2 HEARD, LUNG SOUNDS ARE CLEAR IN UPPER/LOWER LOBES. BOWEL SOUNDS ARE ACTIVE X4, RADIAL PULSE ARE STRONG EQUALLY BILATERALLY. PEDAL PULSES ARE WEAK EQUALLY BILATERALLY. EDEMA PRESENT ON LOWER LEGS/ TRACE. TELE MONITOR IN PLACE. IV SITE REMAINS #20G LAC, FLUSHED WITH NO RESISTANCE NOTED. REPORTS NO PAIN AND NO PAIN WITH URINATION AT THIS TIME. ACUCHECK: 0630 WAS 146, NO INSULIN WAS GIVEN PER SLIDING SCALE. TELEMETRY IN PLACE. CALL LIGHT IS WITHIN REACH.
[2020-12-31 08:35] VITALS: BP 139/58
--- NOTE | 2020-12-31 09:41 | NUR ---
PHYSICAL THERAPY & OT AT BEDSIDE
[2020-12-31 10:27] VITALS: BP 150/69
--- NOTE | 2020-12-31 12:00 | NUR ---
PT RESTING WATCHING TV. REPORTS NO PAIN AT TIME. PT ENCOURAGED TO USE CALL LIGHT FOR ASSISTANCE. 1 UNIT OF INSULIN WAS GIVEN FOR AN ACUCHECK OF 189. CALL LIGHT IS WITHIN REACH.
--- NOTE | 2020-12-31 15:48 | NUR ---
Discharge instructions given. Patient verbalizes understanding of same. Discharged in stable condition via Wheelchair to Home with [facility]/PT ACCOMPANIED BY STAFF.All belongings sent with pt.
--- NOTE | 2020-12-31 16:14 | NUR ---
S: Patient reported feeling significantly better on this date than the previous date. O: Patient performed: 2 x 20 seated hip abduction with RTB on knees 2 x 20 each seated marching with RTB on knees 2 x 20 each seated knee flexion with RTB on ankles 1 x 20 each seated knee extension Sit to stand CGA x 1 Ambulation x 60 feet CGA x 1 with FWW Patient was able to ambulate and perform weight bearing activities with becoming severely fatigued like the previous day. A: Patient was feeling much better on this date and was able to perform all weight bearing ADLs with SBA x 1 and sit to stand with CGA x 1. This is a significant improvement compared to initial evaluation where patient was dependent x 1 for sit to stand and Max A x 1 for ambulation of a short distance. P: Patient will need to continue strengthening activities, gait training and balance training to improve independence and safety with ADLs. Patient's Am Pac score on this date was 13 which would be a recommendation for home health care services to continue interventions. I agree with this recommendation at this time as this patient showed increased independence and safety with ADLs.
== END 2020-12-31 15:48 | disposition home health service (06) ==
LOC: ED 10:33 → ED-I 12:29 → MS2 12:54 → ED 12:54 → MS2 12:54
PROVIDERS: Nurse Practitioner; ADMIT Hospitalist; ATTEND Hospitalist
DX: R53.1 Weakness (principal); E87.2 Acidosis; E11.9 Type 2 diabetes mellitus without complications; I10 Essential (primary) hypertension; N31.9 Neuromuscular dysfunction of bladder, unspecified; J44.9 Chronic obstructive pulmonary disease, unspecified; E78.5 Hyperlipidemia, unspecified; F41.9 Anxiety disorder, unspecified; M19.90 Unspecified osteoarthritis, unspecified site; F32.A Depression, unspecified; Z22.39 Carrier of other specified bacterial diseases; Z60.2 Problems related to living alone; Z87.440 Personal history of urinary (tract) infections; Z79.84 Long term (current) use of oral hypoglycemic drugs; Z79.4 Long term (current) use of insulin; Z87.891 Personal history of nicotine dependence; Z20.822 Contact with and (suspected) exposure to COVID-19
CPT/HCPCS: J1650

== ENCOUNTER 2021-05-14 14:14 | Observation (INO) | payer MEDICARE, MEDICAID ==
[~2021-05-14] VITALS: Ht 177.8 cm; Wt 111.9 kg
[2021-05-14 13:20] VITALS: BP 138/71
[2021-05-14 13:31] VITALS: BP 129/60
[2021-05-14 13:46] VITALS: BP 117/55
[2021-05-14 14:01] VITALS: BP 125/60
[~2021-05-14 14:14] MED LIST changes: +HIPREX1 GM PO
--- NOTE | 2021-05-14 14:20 | NUR ---
PATIENT TO ROOM 8 VIA EMS
[2021-05-14 14:45] LABS: HEMATOCRIT 37.3 % (39.0-50.0); HEMOGLOBIN 12.4 g/dl (14.0-18.0); IMMATURE GRANULOCYTES 0.1 % (0.0-5.0); MEAN CELL VOLUME 95.2 fL CALC (80.0-100.0); MEAN CORPUSCULAR HGB 31.6 pG CALC (26.0-32.0); MEAN CORPUSCULAR HGB CONC 33.2 g/dL CAL (32.0-36.0); NEUT# 7.44 thou/uL (1.82-7.42); RED BLOOD COUNT 3.92 mill/uL (4.70-6.10); RED CELL DISTRI WIDTH 12.9 % (11.5-15.5)
--- NOTE | 2021-05-14 14:51 | NUR ---
PT REPORTS HE "SELF CATHS" AND WILL NEED TO BE CATHED FOR URINE SPECIMEN. DR LILIAN BOBBY.
[2021-05-14 14:59] LABS: ALBUMIN 4.3 g/dL (3.2-5.0); ALKALINE PHOSPHATASE 58 u/l (38-126); ANION GAP 17 (6-22 (CALC)); BILIRUBIN, TOTAL 0.4 mg/dL (0.0-1.4); BUN 28 mg/dL (8-23); BUN/CREATININE RATIO 23 (12-20 (CALC)); CARBON DIOXIDE 23 mmol/l (22-30); CHLORIDE 104 mmol/l (95-108); CREATININE 1.2 mg/dL (0.7-1.3); GFR 59 ML/MIN (>=60 (CALC)); GFR FOR AFR.AMER. > 60 ML/MIN (>=60 (CALC)); POTASSIUM 4.8 mmol/l (3.5-5.1); SGOT/AST 26 u/l (19-48); SODIUM 139 mmol/l (137-146); TOTAL PROTEIN 7.4 g/dL (6.3-8.2)
--- NOTE | 2021-05-14 14:59 | NUR ---
STRAIGHT CATH PERFORMED TO OBTAIN URINE SAMPLE. PT TOLERATED WELL. SAMPLE COLLECTED AND TO LAB.
[2021-05-14 15:49] LABS: URINE BILIRUBIN - DIPSTICK NEGATIVE (NEGATIVE); URINE BLOOD DIPSTICK TRACE-LYSED (NEGATIVE); URINE COLOR YELLOW; URINE GLUCOSE - DIPSTICK NEGATIVE (NEGATIVE); URINE KETONE NEGATIVE (NEGATIVE); URINE PROTEIN - DIPSTICK NEGATIVE (NEG-TRACE); URINE SPECIFIC GRAVITY >=1.030; URINE UROBILINOGEN - DIPSTICK 0.2 E.U./dL (0.2)
[2021-05-14 15:52] LABS: URINE NITRITE - DIPSTICK POSITIVE (Negative)
[2021-05-14 15:53] LABS: URINE LEUK ESTERASE SMALL (NEGATIVE)
[2021-05-14 15:58] LABS: URINE BACTERIA FEW hpf; URINE SQUAMOUS EPITHELIAL CELL FEW EPI/hpf (0-FEW); URINE WBC 20-50 WBC/hpf (0-5)
[2021-05-14 18:00] VITALS: BP 150/67
--- NOTE | 2021-05-14 18:45 | NUR ---
PT ASKING FOR MEAL, ORDERED DIABETIC MEAL. PT DENIES ANY OTHER NEEDS AT THIS TIME. PT STABLE, WATCHING TV.
--- NOTE | 2021-05-14 18:50 | NUR ---
MEAL TRAY TO PT
--- NOTE | 2021-05-14 19:15 | NUR ---
PT AWARE OF ADMISSION. PT ATE 100% OF MEAL.
--- NOTE | 2021-05-14 19:29 | NUR ---
[facility] CALLED TO [facility].
--- NOTE | 2021-05-14 19:35 | NUR ---
PT TO MED/SURG VIA STRETCHER WITH TELE IN PLACE. PT IN STABLE CONDITION AT TIME OF ADMISSION.
--- NOTE | 2021-05-14 20:00 | NUR ---
RECEIVED FROM ED IN STABLE CONDITION. A/OX4 RESPIRATIONS EVEN AND UNLABORED LUNGS CLEAR. BS ACTIVE BELLY DISTENDED BUT SOFT. BLE EDEMA PITTTING +1 NOTED. PT C/O MILD PAIN TO LEFT KNEE AND DOES HAVE LIMITED ACTIVE ROM IN KNEE.. PULSES WDL. CAP REFILL LESS THAN 3 SECONDS AND SENSATION INTACT. PT STATES HE DOES SELF CATH AT HOME AND HAS SUPPLIES FROM HOME AT BEDSIDE, STATES HE PREFERS TO USE OWN SUPPLIES AND CATH SELF MD NOTIFIED.
[2021-05-14 22:30] VITALS: BP 136/60
--- NOTE | 2021-05-14 22:30 | NUR ---
PT SELF CATHS AT HOME. CONTACTED DR JONES REGARDING WETHER TO ALLOW PT TO CONTINUE TO SELF CATH OR PUT IN INDWELLING. PT STATES HE FEELS MOST COMFORATBLE USING OWN SUPPLIES TO SELF CATH. PER DR JONES THIS IS OK LONG SUPPLIES AR STERILE. SUPPLIES INSPECTED BY THIS DIRECTOR FRAUD AND FOUND TO BE STERILE.
[2021-05-15] VITALS: BP 136/60
--- NOTE | 2021-05-15 00:27 | NUR ---
RESTING IN BED EYES CLOSED. VSS
[2021-05-15 04:00] VITALS: BP 130/63
--- NOTE | 2021-05-15 04:28 | NUR ---
RESTED WELL OVERNIGHT. VS REMIANES STABLE NO C/O PAIN. SAFETY PRECAUTIONS IN PLACE PER POLICY, Q2HR ROUNDING PERFORMED PER POLICY
[2021-05-15 05:41] LABS: HEMATOCRIT 41.7 % (39.0-50.0); HEMOGLOBIN 13.6 g/dl (14.0-18.0); MEAN CELL VOLUME 95.6 fL CALC (80.0-100.0); MEAN CORPUSCULAR HGB 31.2 pG CALC (26.0-32.0); MEAN CORPUSCULAR HGB CONC 32.6 g/dL CAL (32.0-36.0); RED BLOOD COUNT 4.36 mill/uL (4.70-6.10); RED CELL DISTRI WIDTH 12.8 % (11.5-15.5)
[2021-05-15 06:07] LABS: ANION GAP 16 (6-22 (CALC)); BUN 23 mg/dL (8-23); BUN/CREATININE RATIO 21 (12-20 (CALC)); CARBON DIOXIDE 23 mmol/l (22-30); CHLORIDE 107 mmol/l (95-108); CREATININE 1.1 mg/dL (0.7-1.3); GFR > 60 ML/MIN (>=60 (CALC)); GFR FOR AFR.AMER. > 60 ML/MIN (>=60 (CALC)); POTASSIUM 4.7 mmol/l (3.5-5.1); SODIUM 141 mmol/l (137-146)
[2021-05-15 08:00] VITALS: BP 148/71
[2021-05-15] MEDS ORDERED: TYLENOL PM PO (08:46)
--- NOTE | 2021-05-15 09:00 | NUR ---
PT AWAKE, ALERT, ORIENTED X 3. PT STATES THAT HE FEELS WEAK, SIMILAR TO PREVIOUS TIMES THAT HE HAS HAD UTIs. NO ACUTE DISTRESS.
[2021-05-15 09:36] VITALS: BP 143/67
[2021-05-15 10:30] VITALS: BP 143/67
[2021-05-15] MEDS ORDERED: LEVAQUIN750 M1 PO (12:22)
--- NOTE | 2021-05-15 14:57 | NUR ---
MR. THOMPSON ADMITTED TO [facility] WITH A URINARY TRACT INFECTION. PATIENT SELF CATHETERIZES X "YEARS" R/T A "BACK SURGERY THAT LEFT MY UNABLE TO URINATE" MR. THOMPSON IS DISCHARGING HOME WITH [facility]AL ANTIBIOTICS AND PER PATIENT HIS DAUGHTER AND SON IN LAW LIVE DIRECTLY BEHIND HIM AND WILL BE ABLE TO ASSIST WITH HIS CARE SHOULD HE NEED IT. IV TO L AC 18G DISCONTINUED WITHOUT INCIDENT. TELEMETRY MONITORING DISCONTINUED. PATIENT IS DISCHARGING HOME WITH A WALKER AND IS PERMITTED ACTIVITY TOLERATED. [facility] WILL BE OFFERING SUPPORT TO MR. THOMPSON UPON DISCHARGE. ALL DISCHARGE INSTRUCTIONS REVIEWS PRIOR TO DISCHARGE, NO QUESTIONS OR CONCERNS VERBALIZED.
== END 2021-05-15 15:27 | disposition home health service (06) ==
LOC: ED 14:14 → ED-I 17:22 → ED 17:52 → MS2 17:52
PROVIDERS: Family Medicine; ADMIT Hospitalist; ATTEND Hospitalist
DX: T83.518A Infection and inflammatory reaction due to other urinary catheter, initial encounter (principal); N39.0 Urinary tract infection, site not specified; N31.9 Neuromuscular dysfunction of bladder, unspecified; R33.8 Other retention of urine; I10 Essential (primary) hypertension; J44.9 Chronic obstructive pulmonary disease, unspecified; E11.9 Type 2 diabetes mellitus without complications; E78.5 Hyperlipidemia, unspecified; F41.9 Anxiety disorder, unspecified; F32.A Depression, unspecified; B96.20 Unspecified Escherichia coli [E. coli] as the cause of diseases classified elsewhere; Y84.6 Urinary catheterization as the cause of abnormal reaction of the patient, or of later complication, without mention of misadventure at the time of the procedure; Z16.12 Extended spectrum beta lactamase (ESBL) resistance; Z79.84 Long term (current) use of oral hypoglycemic drugs; Z87.440 Personal history of urinary (tract) infections; Z79.4 Long term (current) use of insulin; Z20.822 Contact with and (suspected) exposure to COVID-19

== ENCOUNTER 2021-06-23 16:05 | Observation (INO) | payer MEDICARE, MEDICAID ==
[~2021-06-23] VITALS: Ht 177.8 cm; Wt 111.0 kg
[~2021-06-23 16:05] MED LIST changes: +LEVAQUIN750 M1 PO; +TYLENOL PM PO
[2021-06-23] MEDS ORDERED: OMEPRAZOLE DR40 MG PO (16:19)
[2021-06-23 16:35] VITALS: BP 161/77
[2021-06-23 17:15] LABS: HEMATOCRIT 37.4 % (39.0-50.0); HEMOGLOBIN 12.4 g/dl (14.0-18.0); IMMATURE GRANULOCYTES 0.2 % (0.0-5.0); MEAN CELL VOLUME 94.2 fL CALC (80.0-100.0); MEAN CORPUSCULAR HGB 31.2 pG CALC (26.0-32.0); MEAN CORPUSCULAR HGB CONC 33.2 g/dL CAL (32.0-36.0); NEUT# 7.16 thou/uL (1.82-7.42); RED BLOOD COUNT 3.97 mill/uL (4.70-6.10); RED CELL DISTRI WIDTH 12.8 % (11.5-15.5)
[2021-06-23 17:32] LABS: ALBUMIN 4.2 g/dL (3.2-5.0); ALKALINE PHOSPHATASE 72 u/l (38-126); ANION GAP 13 (6-22 (CALC)); BUN 26 mg/dL (8-23); BUN/CREATININE RATIO 24 (12-20 (CALC)); C-REACTIVE PROTEIN < 0.5 mg/dL (0-0.9); CARBON DIOXIDE 23 mmol/l (22-30); CHLORIDE 107 mmol/l (95-108); CREATININE 1.1 mg/dL (0.7-1.3); GFR > 60 ML/MIN (>=60 (CALC)); GFR FOR AFR.AMER. > 60 ML/MIN (>=60 (CALC)); POTASSIUM 4.2 mmol/l (3.5-5.1); SGOT/AST 22 u/l (19-48); SODIUM 139 mmol/l (137-146); TOTAL PROTEIN 7.3 g/dL (6.3-8.2)
[2021-06-23 17:39] LABS: BILIRUBIN, TOTAL 0.2 mg/dL (0.0-1.4)
[2021-06-23 19:02] VITALS: BP 156/79
[2021-06-23 21:03] LABS: URINE BILIRUBIN - DIPSTICK NEGATIVE (NEGATIVE); URINE BLOOD DIPSTICK NEGATIVE (NEGATIVE); URINE CLARITY CLEAR; URINE COLOR YELLOW; URINE GLUCOSE - DIPSTICK 100 mg/dL (NEGATIVE); URINE KETONE NEGATIVE (NEGATIVE); URINE LEUK ESTERASE NEGATIVE (Negative); URINE NITRITE - DIPSTICK NEGATIVE (Negative); URINE PROTEIN - DIPSTICK TRACE mg/dL (NEG-TRACE); URINE SPECIFIC GRAVITY >=1.030; URINE UROBILINOGEN - DIPSTICK 0.2 E.U./dL (0.2)
[2021-06-23 23:46] VITALS: BP 158/78
[2021-06-24 00:02] VITALS: BP 158/78
[2021-06-24 04:00] VITALS: BP 136/74
[2021-06-24 05:10] LABS: HEMATOCRIT 36.5 % (39.0-50.0); HEMOGLOBIN 12.1 g/dl (14.0-18.0); MEAN CELL VOLUME 94.1 fL CALC (80.0-100.0); MEAN CORPUSCULAR HGB 31.2 pG CALC (26.0-32.0); MEAN CORPUSCULAR HGB CONC 33.2 g/dL CAL (32.0-36.0); RED BLOOD COUNT 3.88 mill/uL (4.70-6.10); RED CELL DISTRI WIDTH 12.8 % (11.5-15.5)
[2021-06-24 05:30] LABS: ALBUMIN 3.6 g/dL (3.2-5.0); ALKALINE PHOSPHATASE 67 u/l (38-126); ANION GAP 11 (6-22 (CALC)); BILIRUBIN, TOTAL 0.3 mg/dL (0.0-1.4); BUN 24 mg/dL (8-23); BUN/CREATININE RATIO 22 (12-20 (CALC)); CARBON DIOXIDE 25 mmol/l (22-30); CHLORIDE 108 mmol/l (95-108); CREATININE 1.1 mg/dL (0.7-1.3); GFR > 60 ML/MIN (>=60 (CALC)); GFR FOR AFR.AMER. > 60 ML/MIN (>=60 (CALC)); MAGNESIUM 2.2 mg/dL (1.6-2.3); POTASSIUM 4.5 mmol/l (3.5-5.1); SGOT/AST 20 u/l (19-48); SODIUM 139 mmol/l (137-146); TOTAL PROTEIN 6.3 g/dL (6.3-8.2)
[2021-06-24 07:25] VITALS: BP 144/63
[2021-06-24 10:28] VITALS: BP 156/63
[2021-06-24 14:35] VITALS: BP 156/67
[2021-06-24 18:52] VITALS: BP 175/82
[2021-06-25] VITALS (9 sets, daily range): BP systolic 129–181; BP diastolic 68–86
[2021-06-25 05:24] LABS: HEMATOCRIT 36.8 % (39.0-50.0); HEMOGLOBIN 12.3 g/dl (14.0-18.0); MEAN CELL VOLUME 93.6 fL CALC (80.0-100.0); MEAN CORPUSCULAR HGB 31.3 pG CALC (26.0-32.0); MEAN CORPUSCULAR HGB CONC 33.4 g/dL CAL (32.0-36.0); RED BLOOD COUNT 3.93 mill/uL (4.70-6.10); RED CELL DISTRI WIDTH 12.6 % (11.5-15.5)
[2021-06-25 05:37] LABS: ANION GAP 9 (6-22 (CALC)); BUN 23 mg/dL (8-23); BUN/CREATININE RATIO 23 (12-20 (CALC)); CARBON DIOXIDE 25 mmol/l (22-30); CHLORIDE 108 mmol/l (95-108); GFR > 60 ML/MIN (>=60 (CALC)); GFR FOR AFR.AMER. > 60 ML/MIN (>=60 (CALC)); MAGNESIUM 2.1 mg/dL (1.6-2.3); POTASSIUM 4.5 mmol/l (3.5-5.1); SODIUM 137 mmol/l (137-146)
[2021-06-26 00:20] VITALS: BP 161/76
[2021-06-26 03:48] VITALS: BP 134/64
[2021-06-26 05:05] LABS: HEMATOCRIT 36.9 % (39.0-50.0); HEMOGLOBIN 12.3 g/dl (14.0-18.0); IMMATURE GRANULOCYTES 0.5 % (0.0-5.0); MEAN CELL VOLUME 93.2 fL CALC (80.0-100.0); MEAN CORPUSCULAR HGB 31.1 pG CALC (26.0-32.0); MEAN CORPUSCULAR HGB CONC 33.3 g/dL CAL (32.0-36.0); NEUT# 4.56 thou/uL (1.82-7.42); RED BLOOD COUNT 3.96 mill/uL (4.70-6.10); RED CELL DISTRI WIDTH 12.6 % (11.5-15.5)
[2021-06-26 05:33] LABS: ALBUMIN 3.7 g/dL (3.2-5.0); ALKALINE PHOSPHATASE 67 u/l (38-126); ANION GAP 10 (6-22 (CALC)); BILIRUBIN, TOTAL 0.3 mg/dL (0.0-1.4); BUN 22 mg/dL (8-23); BUN/CREATININE RATIO 23 (12-20 (CALC)); CARBON DIOXIDE 25 mmol/l (22-30); CHLORIDE 107 mmol/l (95-108); GFR > 60 ML/MIN (>=60 (CALC)); GFR FOR AFR.AMER. > 60 ML/MIN (>=60 (CALC)); MAGNESIUM 2.5 mg/dL (1.6-2.3); POTASSIUM 4.3 mmol/l (3.5-5.1); SGOT/AST 21 u/l (19-48); SODIUM 137 mmol/l (137-146); TOTAL PROTEIN 6.5 g/dL (6.3-8.2)
[2021-06-26 07:48] VITALS: BP 148/93
[2021-06-26 10:26] VITALS: BP 147/75
[2021-06-26] MEDS ORDERED: AMLODIPINE BESYL5 MG PO (15:10)
== END 2021-06-26 16:40 | disposition home health service (06) ==
LOC: MS2 16:05
PROVIDERS: Nurse Practitioner; ADMIT Internal Medicine; ATTEND Hospitalist
DX: R53.1 Weakness (principal); N31.8 Other neuromuscular dysfunction of bladder; R33.8 Other retention of urine; I10 Essential (primary) hypertension; E11.9 Type 2 diabetes mellitus without complications; E78.5 Hyperlipidemia, unspecified; F41.9 Anxiety disorder, unspecified; F32.A Depression, unspecified; M19.90 Unspecified osteoarthritis, unspecified site; Z87.440 Personal history of urinary (tract) infections; Z87.891 Personal history of nicotine dependence; Z79.4 Long term (current) use of insulin; Z20.822 Contact with and (suspected) exposure to COVID-19; Z16.12 Extended spectrum beta lactamase (ESBL) resistance
CPT/HCPCS: J1335; J1650

== ENCOUNTER 2022-02-24 14:36 | Emergency (ER) | payer MEDICARE, MEDICAID ==
[~2022-02-24] VITALS: Ht 177.8 cm; Wt 109.0 kg
[~2022-02-24 14:36] MED LIST changes: +OMEPRAZOLE DR40 MG PO
[2022-02-24 16:17] LABS: BASO% 0.4 % (0-3); EOS% 2.2 % (0-8); HEMATOCRIT 41.4 % (39.0-50.0); HEMOGLOBIN 13.7 g/dl (14.0-18.0); IMMATURE GRANULOCYTES 0.2 % (0.0-5.0); LYMPH% 9.7 % (15-41); MEAN CELL VOLUME 95.2 fL CALC (80.0-100.0); MEAN CORPUSCULAR HGB 31.5 pG CALC (26.0-32.0); MEAN CORPUSCULAR HGB CONC 33.1 g/dL CAL (32.0-36.0); MONO% 5.2 % (2-13); NEUT# 9.1 thou/uL (1.82-7.42); NEUT% 82.3 % (42-76); RED BLOOD COUNT 4.35 mill/uL (4.70-6.10); RED CELL DISTRI WIDTH 13.6 % (11.5-15.5)
[2022-02-24 16:27] LABS: ALBUMIN 4.7 g/dL (3.2-5.0); BILIRUBIN, TOTAL 0.4 mg/dL (0.0-1.4); CREATININE 1.4 mg/dL (0.7-1.3); TOTAL PROTEIN 7.8 g/dL (6.3-8.2)
[2022-02-24 18:08] LABS: URINE BILIRUBIN - DIPSTICK NEGATIVE (NEGATIVE); URINE BLOOD DIPSTICK NEGATIVE (NEGATIVE); URINE COLOR YELLOW; URINE GLUCOSE - DIPSTICK >=1000 mg/dL (NEGATIVE); URINE KETONE NEGATIVE (NEGATIVE); URINE LEUK ESTERASE NEGATIVE (NEGATIVE); URINE PH 5.5 (4.5-8.0); URINE PROTEIN - DIPSTICK NEGATIVE (NEG-TRACE); URINE UROBILINOGEN - DIPSTICK 0.2 E.U./dL (0.2)
[2022-02-24 18:14] LABS: URINE NITRITE - DIPSTICK POSITIVE (Negative)
[2022-02-24 18:29] LABS: URINE BACTERIA MODERATE hpf
[2022-02-24] MEDS ORDERED: KEFLEX500 MG PO (19:29)
[2022-02-24 19:36] VITALS: BP 157/75
== END 2022-02-24 19:40 | disposition home or self-care (01) ==
LOC: ED 14:36
PROVIDERS: Nurse Practitioner
DX: N39.0 Urinary tract infection, site not specified (principal); B96.1 Klebsiella pneumoniae [K. pneumoniae] as the cause of diseases classified elsewhere; R53.1 Weakness; M25.561 Pain in right knee; R29.6 Repeated falls; I10 Essential (primary) hypertension; E11.9 Type 2 diabetes mellitus without complications; F32.A Depression, unspecified; Z79.4 Long term (current) use of insulin; Z79.84 Long term (current) use of oral hypoglycemic drugs; Z87.440 Personal history of urinary (tract) infections

== ENCOUNTER 2022-03-29 15:55 | Observation (INO) | payer MEDICARE, MEDICAID ==
[2022-03-29] VITALS (27 sets, daily range): BP systolic 109–150; BP diastolic 50–79
[~2022-03-29] VITALS: Ht 177.8 cm; Wt 114.0 kg
[~2022-03-29 15:55] MED LIST changes: +KEFLEX500 MG PO
[2022-03-29 18:03] LABS: BASO% 0.5 % (0-3); EOS% 4.1 % (0-8); HEMATOCRIT 41.1 % (39.0-50.0); HEMOGLOBIN 13.1 g/dl (14.0-18.0); IMMATURE GRANULOCYTES 0.2 % (0.0-5.0); LYMPH% 15.9 % (15-41); MEAN CELL VOLUME 94.7 fL CALC (80.0-100.0); MEAN CORPUSCULAR HGB 30.2 pG CALC (26.0-32.0); MEAN CORPUSCULAR HGB CONC 31.9 g/dL CAL (32.0-36.0); MONO% 6.1 % (2-13); NEUT# 8.13 thou/uL (1.82-7.42); NEUT% 73.2 % (42-76); RED BLOOD COUNT 4.34 mill/uL (4.70-6.10); RED CELL DISTRI WIDTH 13.7 % (11.5-15.5)
[2022-03-29 18:06] LABS: URINE BILIRUBIN - DIPSTICK NEGATIVE (NEGATIVE); URINE BLOOD DIPSTICK NEGATIVE (NEGATIVE); URINE COLOR YELLOW; URINE GLUCOSE - DIPSTICK >=1000 mg/dL (NEGATIVE); URINE KETONE NEGATIVE (NEGATIVE); URINE LEUK ESTERASE TRACE (NEGATIVE); URINE PROTEIN - DIPSTICK NEGATIVE (NEG-TRACE); URINE SPECIFIC GRAVITY 1.025; URINE UROBILINOGEN - DIPSTICK 0.2 E.U./dL (0.2)
[2022-03-29 18:10] LABS: URINE NITRITE - DIPSTICK NEGATIVE (Negative)
[2022-03-29 18:16] LABS: ALBUMIN 4.2 g/dL (3.2-5.0); ALKALINE PHOSPHATASE 79 u/l (38-126); ANION GAP 12 (6-22 (CALC)); BUN 22 mg/dL (8-23); BUN/CREATININE RATIO 16 (12-20 (CALC)); CARBON DIOXIDE 25 mmol/l (22-30); CHLORIDE 105 mmol/l (95-108); CREATININE 1.4 mg/dL (0.7-1.3); GFR FOR AFR.AMER. 60 ML/MIN (>=60 (CALC)); GFR OTHER RACES 49 ML/MIN (>=60 (CALC)); POTASSIUM 4.5 mmol/l (3.5-5.1); PROTHROMBIN TIME 9.9 SECONDS (9.0-12.5); SGOT/AST 26 u/l (19-48); SODIUM 137 mmol/l (137-146); TOTAL PROTEIN 7.2 g/dL (6.3-8.2)
[2022-03-29 18:21] LABS: BILIRUBIN, TOTAL 0.2 mg/dL (0.2-1.3)
[2022-03-30] VITALS (7 sets, daily range): BP systolic 129–155; BP diastolic 59–77
[2022-03-31 00:04] VITALS: BP 126/48
[2022-03-31 04:14] VITALS: BP 135/61
[2022-03-31 05:28] LABS: HEMATOCRIT 40.3 % (39.0-50.0); HEMOGLOBIN 13.1 g/dl (14.0-18.0); MEAN CORPUSCULAR HGB 31.2 pG CALC (26.0-32.0); MEAN CORPUSCULAR HGB CONC 32.5 g/dL CAL (32.0-36.0); RED BLOOD COUNT 4.2 mill/uL (4.70-6.10); RED CELL DISTRI WIDTH 13.6 % (11.5-15.5)
[2022-03-31 05:43] LABS: BILIRUBIN, TOTAL 0.2 mg/dL (0.2-1.3); CREATININE 1.6 mg/dL (0.7-1.3); POTASSIUM 4.1 mmol/l (3.5-5.1); TOTAL PROTEIN 6.9 g/dL (6.3-8.2)
[2022-03-31 06:58] VITALS: BP 139/62
[2022-03-31 10:14] VITALS: BP 133/53
== END 2022-03-31 13:22 ==
LOC: ED 15:55 → MS2 23:01
PROVIDERS: Emergency Medicine; Nurse Practitioner Family; ADMIT Internal Medicine; ATTEND Internal Medicine
DX: R53.1 Weakness (principal); R20.0 Anesthesia of skin; G80.9 Cerebral palsy, unspecified; I10 Essential (primary) hypertension; E11.42 Type 2 diabetes mellitus with diabetic polyneuropathy; E03.9 Hypothyroidism, unspecified; M19.90 Unspecified osteoarthritis, unspecified site; N31.9 Neuromuscular dysfunction of bladder, unspecified; E78.5 Hyperlipidemia, unspecified; F41.9 Anxiety disorder, unspecified; F32.A Depression, unspecified; Z79.84 Long term (current) use of oral hypoglycemic drugs; Z79.4 Long term (current) use of insulin; Z87.440 Personal history of urinary (tract) infections

== ENCOUNTER 2022-08-16 18:24 | Observation (INO) | payer MEDICARE, MEDICAID ==
[~2022-08-16] VITALS: Ht 177.8 cm; Wt 116.5 kg
[2022-08-16] VITALS (7 sets, daily range): BP systolic 121–139; BP diastolic 58–64
[2022-08-16 19:00] LABS: BASO% 0.4 % (0-3); EOS% 1.5 % (0-8); HEMATOCRIT 40.5 % (39.0-50.0); HEMOGLOBIN 13.2 g/dl (14.0-18.0); IMMATURE GRANULOCYTES 0.2 % (0.0-5.0); LYMPH% 9.5 % (15-41); MEAN CELL VOLUME 95.1 fL CALC (80.0-100.0); MEAN CORPUSCULAR HGB CONC 32.6 g/dL CAL (32.0-36.0); MONO% 10.1 % (2-13); NEUT# 7.65 thou/uL (1.82-7.42); NEUT% 78.3 % (42-76); RED BLOOD COUNT 4.26 mill/uL (4.70-6.10); RED CELL DISTRI WIDTH 13.4 % (11.5-15.5)
[2022-08-16 19:15] LABS: ALBUMIN 4.4 g/dL (3.2-5.0); BILIRUBIN, TOTAL 0.4 mg/dL (0.2-1.3); CREATININE 1.6 mg/dL (0.7-1.3); MAGNESIUM 2.1 mg/dL (1.6-2.3); POTASSIUM 4.7 mmol/l (3.5-5.1); TOTAL PROTEIN 7.2 g/dL (6.3-8.2)
[2022-08-16] MEDS ORDERED: AMLODIPINE BESY10 MG PO (21:01)
[2022-08-17] VITALS (16 sets, daily range): BP systolic 111–152; BP diastolic 51–93
[2022-08-17 05:41] LABS: BASO% 0.5 % (0-3); EOS% 0.1 % (0-8); HEMATOCRIT 42.4 % (39.0-50.0); HEMOGLOBIN 13.8 g/dl (14.0-18.0); IMMATURE GRANULOCYTES 0.4 % (0.0-5.0); LYMPH% 10.6 % (15-41); MEAN CELL VOLUME 95.3 fL CALC (80.0-100.0); MEAN CORPUSCULAR HGB CONC 32.5 g/dL CAL (32.0-36.0); MONO% 1.9 % (2-13); NEUT# 7.23 thou/uL (1.82-7.42); NEUT% 86.5 % (42-76); RED BLOOD COUNT 4.45 mill/uL (4.70-6.10); RED CELL DISTRI WIDTH 13.3 % (11.5-15.5)
[2022-08-17 05:58] LABS: ALKALINE PHOSPHATASE 76 u/l (38-126); ANION GAP 15 (6-22 (CALC)); BILIRUBIN, TOTAL 0.3 mg/dL (0.2-1.3); BUN 24 mg/dL (8-23); BUN/CREATININE RATIO 18 (12-20 (CALC)); CARBON DIOXIDE 21 mmol/l (22-30); CHLORIDE 110 mmol/l (95-108); CREATININE 1.3 mg/dL (0.7-1.3); GFR FOR AFR.AMER. > 60 ML/MIN (>=60 (CALC)); GFR OTHER RACES 54 ML/MIN (>=60 (CALC)); MAGNESIUM 2.3 mg/dL (1.6-2.3); POTASSIUM 4.7 mmol/l (3.5-5.1); SGOT/AST 22 u/l (19-48); SODIUM 142 mmol/l (137-146)
[2022-08-18] VITALS (9 sets, daily range): BP systolic 122–141; BP diastolic 52–68
[2022-08-18 05:51] LABS: BASO% 0.1 % (0-3); HEMATOCRIT 41.7 % (39.0-50.0); HEMOGLOBIN 13.2 g/dl (14.0-18.0); IMMATURE GRANULOCYTES 0.7 % (0.0-5.0); LYMPH% 9.3 % (15-41); MEAN CELL VOLUME 95.9 fL CALC (80.0-100.0); MEAN CORPUSCULAR HGB 30.3 pG CALC (26.0-32.0); MEAN CORPUSCULAR HGB CONC 31.7 g/dL CAL (32.0-36.0); NEUT# 11.38 thou/uL (1.82-7.42); NEUT% 80.9 % (42-76); RED BLOOD COUNT 4.35 mill/uL (4.70-6.10); RED CELL DISTRI WIDTH 13.5 % (11.5-15.5)
[2022-08-18 06:19] LABS: ALBUMIN 3.6 g/dL (3.2-5.0); ALKALINE PHOSPHATASE 68 u/l (38-126); ANION GAP 15 (6-22 (CALC)); BUN 32 mg/dL (8-23); BUN/CREATININE RATIO 24 (12-20 (CALC)); C-REACTIVE PROTEIN 1.9 mg/dL (0-0.9); CARBON DIOXIDE 21 mmol/l (22-30); CHLORIDE 110 mmol/l (95-108); CREATININE 1.3 mg/dL (0.7-1.3); GFR FOR AFR.AMER. > 60 ML/MIN (>=60 (CALC)); GFR OTHER RACES 54 ML/MIN (>=60 (CALC)); POTASSIUM 4.4 mmol/l (3.5-5.1); SGOT/AST 20 u/l (19-48); SODIUM 142 mmol/l (137-146); TOTAL PROTEIN 6.4 g/dL (6.3-8.2)
[2022-08-18 06:21] LABS: BILIRUBIN, TOTAL 0.1 mg/dL (0.2-1.3)
[2022-08-19 00:38] LABS: URINE BILIRUBIN - DIPSTICK NEGATIVE (NEGATIVE); URINE BLOOD DIPSTICK LARGE (NEGATIVE); URINE COLOR YELLOW; URINE GLUCOSE - DIPSTICK >=1000 mg/dL (NEGATIVE); URINE KETONE NEGATIVE (NEGATIVE); URINE LEUK ESTERASE NEGATIVE (NEGATIVE); URINE PROTEIN - DIPSTICK NEGATIVE (NEG-TRACE); URINE UROBILINOGEN - DIPSTICK 0.2 E.U./dL (0.2)
[2022-08-19 00:40] LABS: URINE NITRITE - DIPSTICK NEGATIVE (Negative)
[2022-08-19 01:12] LABS: URINE BACTERIA FEW hpf; URINE RBC 25-50 RBC/hpf (0-5); URINE SQUAMOUS EPITHELIAL CELL FEW EPI/hpf (0-FEW)
[2022-08-19 01:13] LABS: URINE YEAST MANY hpf
[2022-08-19 03:38] VITALS: BP 112/46
[2022-08-19 04:08] VITALS: BP 112/46
[2022-08-19 07:26] VITALS: BP 146/57
[2022-08-19 07:56] VITALS: BP 146/57
[2022-08-19 09:26] VITALS: BP 146/57
[2022-08-19] MEDS ORDERED: DECADRON2 MG PO (11:31)
[2022-08-19] MEDS ORDERED: OMNICEF300 MG PO (11:31)
== END 2022-08-19 13:43 ==
LOC: ED 18:24 → ICU 20:47 → MS2 08-17 15:11
PROVIDERS: Family Medicine; Internal Medicine; ADMIT Internal Medicine; ATTEND Internal Medicine
PROC: 0T9B70Z Drainage of Bladder with Drainage Device, Via Natural or Artificial Opening (ICD-10-PCS; principal; 2022-08-17)
DX: U07.1 COVID-19 (principal); J12.82 Pneumonia due to coronavirus disease 2019; E86.0 Dehydration; J96.11 Chronic respiratory failure with hypoxia; I12.9 Hypertensive chronic kidney disease with stage 1 through stage 4 chronic kidney disease, or unspecified chronic kidney disease; E11.22 Type 2 diabetes mellitus with diabetic chronic kidney disease; N18.9 Chronic kidney disease, unspecified; J44.9 Chronic obstructive pulmonary disease, unspecified; G80.9 Cerebral palsy, unspecified; R33.9 Retention of urine, unspecified; N31.9 Neuromuscular dysfunction of bladder, unspecified; F41.9 Anxiety disorder, unspecified; F32.A Depression, unspecified; Z99.81 Dependence on supplemental oxygen; Z87.440 Personal history of urinary (tract) infections; Z87.891 Personal history of nicotine dependence; Z79.4 Long term (current) use of insulin; Z79.84 Long term (current) use of oral hypoglycemic drugs
CPT/HCPCS: J1650

== ENCOUNTER 2023-03-25 15:05 | Observation (INO) | payer MEDICARE, MEDICAID ==
[~2023-03-25] VITALS: Ht 152.4 cm; Wt 115.4 kg
[~2023-03-25 15:05] MED LIST changes: +AMLODIPINE BESY10 MG PO; +DECADRON2 MG PO; +OMNICEF300 MG PO
[2023-03-25 15:35] VITALS: BP 125/62
[2023-03-25 16:49] VITALS: BP 125/62
[2023-03-25 17:03] LABS: BASO% 0.6 % (0-3); EOS% 3.9 % (0-8); HEMATOCRIT 45.1 % (39.0-50.0); HEMOGLOBIN 14.8 g/dl (14.0-18.0); IMMATURE GRANULOCYTES 0.2 % (0.0-5.0); LYMPH% 19.7 % (15-41); MEAN CELL VOLUME 95.6 fL CALC (80.0-100.0); MEAN CORPUSCULAR HGB 31.4 pG CALC (26.0-32.0); MEAN CORPUSCULAR HGB CONC 32.8 g/dL CAL (32.0-36.0); MONO% 5.7 % (2-13); NEUT# 7.8 thou/uL (1.82-7.42); NEUT% 69.9 % (42-76); RED BLOOD COUNT 4.72 mill/uL (4.70-6.10)
[2023-03-25 17:10] LABS: ANION GAP 15 (6-22 (CALC)); BUN 22 mg/dL (8-23); BUN/CREATININE RATIO 17 (12-20 (CALC)); CARBON DIOXIDE 26 mmol/l (22-30); CHLORIDE 107 mmol/l (95-108); CREATININE 1.3 mg/dL (0.7-1.3); GFR FOR AFR.AMER. > 60 ML/MIN (>=60 (CALC)); GFR OTHER RACES 54 ML/MIN (>=60 (CALC)); POTASSIUM 4.9 mmol/l (3.5-5.1); SODIUM 143 mmol/l (137-146)
[2023-03-25 18:57] VITALS: BP 134/66
[2023-03-25 23:37] VITALS: BP 135/63
[2023-03-25 23:59] LABS: URINE BILIRUBIN - DIPSTICK Negative (NEGATIVE); URINE BLOOD DIPSTICK Negative (NEGATIVE); URINE GLUCOSE - DIPSTICK 500 mg/dL (NEGATIVE); URINE KETONE Negative (NEGATIVE); URINE LEUK ESTERASE Negative (NEGATIVE); URINE NITRITE - DIPSTICK Negative (Negative); URINE PROTEIN - DIPSTICK Negative (NEG-TRACE); URINE UROBILINOGEN - DIPSTICK 0.2 E.U./dL (0.2)
[2023-03-26 00:04] LABS: URINE COLOR Yellow
[2023-03-26 03:52] VITALS: BP 138/67
[2023-03-26 06:50] VITALS: BP 139/66
[2023-03-26 07:40] LABS: ALKALINE PHOSPHATASE 65 u/l (38-126); ANION GAP 13 (6-22 (CALC)); BILIRUBIN, TOTAL 0.5 mg/dL (0.2-1.3); BUN 19 mg/dL (8-23); BUN/CREATININE RATIO 18 (12-20 (CALC)); CARBON DIOXIDE 24 mmol/l (22-30); CHLORIDE 110 mmol/l (95-108); CREATININE 1.1 mg/dL (0.7-1.3); GFR FOR AFR.AMER. > 60 ML/MIN (>=60 (CALC)); GFR OTHER RACES > 60 ML/MIN (>=60 (CALC)); POTASSIUM 4.4 mmol/l (3.5-5.1); SGOT/AST 24 u/l (19-48); SODIUM 142 mmol/l (137-146); TOTAL PROTEIN 6.6 g/dL (6.3-8.2)
[2023-03-26 10:49] VITALS: BP 139/56
[2023-03-26 15:10] VITALS: BP 108/58
[2023-03-26 19:30] VITALS: BP 123/69
[2023-03-27] VITALS (7 sets, daily range): BP systolic 116–140; BP diastolic 53–69
[2023-03-27 04:57] LABS: BASO% 0.5 % (0-3); EOS% 4.2 % (0-8); HEMATOCRIT 41.7 % (39.0-50.0); HEMOGLOBIN 13.8 g/dl (14.0-18.0); IMMATURE GRANULOCYTES 0.1 % (0.0-5.0); LYMPH% 25.5 % (15-41); MEAN CELL VOLUME 96.5 fL CALC (80.0-100.0); MEAN CORPUSCULAR HGB 31.9 pG CALC (26.0-32.0); MEAN CORPUSCULAR HGB CONC 33.1 g/dL CAL (32.0-36.0); MONO% 7.6 % (2-13); NEUT# 5.48 thou/uL (1.82-7.42); NEUT% 62.1 % (42-76); RED BLOOD COUNT 4.32 mill/uL (4.70-6.10)
[2023-03-27 05:38] LABS: ALBUMIN 3.5 g/dL (3.2-5.0); ALKALINE PHOSPHATASE 60 u/l (38-126); ANION GAP 10 (6-22 (CALC)); BILIRUBIN, TOTAL 0.4 mg/dL (0.2-1.3); BUN 18 mg/dL (8-23); BUN/CREATININE RATIO 16 (12-20 (CALC)); CARBON DIOXIDE 23 mmol/l (22-30); CHLORIDE 111 mmol/l (95-108); CREATININE 1.1 mg/dL (0.7-1.3); GFR FOR AFR.AMER. > 60 ML/MIN (>=60 (CALC)); GFR OTHER RACES > 60 ML/MIN (>=60 (CALC)); MAGNESIUM 2.2 mg/dL (1.6-2.3); POTASSIUM 4.3 mmol/l (3.5-5.1); SGOT/AST 21 u/l (19-48); SODIUM 140 mmol/l (137-146); TOTAL PROTEIN 6.1 g/dL (6.3-8.2)
[2023-03-28 00:25] VITALS: BP 146/66
[2023-03-28 04:36] VITALS: BP 130/62
[2023-03-28 07:32] VITALS: BP 152/72
[2023-03-28 08:28] VITALS: BP 137/49
[2023-03-28 18:10] VITALS: BP 139/49
[2023-03-28 21:01] VITALS: BP 146/69
[2023-03-29] VITALS (8 sets, daily range): BP systolic 119–145; BP diastolic 52–73
[2023-03-29 06:19] LABS: BASO% 0.4 % (0-3); EOS% 3.6 % (0-8); HEMATOCRIT 40.8 % (39.0-50.0); HEMOGLOBIN 13.2 g/dl (14.0-18.0); IMMATURE GRANULOCYTES 0.2 % (0.0-5.0); LYMPH% 21.4 % (15-41); MEAN CELL VOLUME 95.6 fL CALC (80.0-100.0); MEAN CORPUSCULAR HGB 30.9 pG CALC (26.0-32.0); MEAN CORPUSCULAR HGB CONC 32.4 g/dL CAL (32.0-36.0); MONO% 8.3 % (2-13); NEUT# 6.4 thou/uL (1.82-7.42); NEUT% 66.1 % (42-76); RED BLOOD COUNT 4.27 mill/uL (4.70-6.10); RED CELL DISTRI WIDTH 13.1 % (11.5-15.5)
[2023-03-29 06:39] LABS: ANION GAP 9 (6-22 (CALC)); BUN 21 mg/dL (8-23); BUN/CREATININE RATIO 19 (12-20 (CALC)); CARBON DIOXIDE 24 mmol/l (22-30); CHLORIDE 112 mmol/l (95-108); CREATININE 1.1 mg/dL (0.7-1.3); GFR FOR AFR.AMER. > 60 ML/MIN (>=60 (CALC)); GFR OTHER RACES > 60 ML/MIN (>=60 (CALC)); POTASSIUM 4.2 mmol/l (3.5-5.1); SODIUM 141 mmol/l (137-146)
[2023-03-30 03:30] VITALS: BP 124/50
[2023-03-30 06:29] LABS: BASO% 0.5 % (0-3); EOS% 4.3 % (0-8); HEMATOCRIT 41.7 % (39.0-50.0); HEMOGLOBIN 13.5 g/dl (14.0-18.0); IMMATURE GRANULOCYTES 0.1 % (0.0-5.0); LYMPH% 20.4 % (15-41); MEAN CELL VOLUME 96.1 fL CALC (80.0-100.0); MEAN CORPUSCULAR HGB 31.1 pG CALC (26.0-32.0); MEAN CORPUSCULAR HGB CONC 32.4 g/dL CAL (32.0-36.0); MONO% 6.7 % (2-13); NEUT# 6.58 thou/uL (1.82-7.42); RED BLOOD COUNT 4.34 mill/uL (4.70-6.10)
[2023-03-30 06:54] VITALS: BP 111/46
[2023-03-30 07:02] LABS: ALBUMIN 3.5 g/dL (3.2-5.0); ALKALINE PHOSPHATASE 64 u/l (38-126); ANION GAP 11 (6-22 (CALC)); BILIRUBIN, TOTAL 0.3 mg/dL (0.2-1.3); BUN 20 mg/dL (8-23); BUN/CREATININE RATIO 17 (12-20 (CALC)); CARBON DIOXIDE 23 mmol/l (22-30); CHLORIDE 113 mmol/l (95-108); CREATININE 1.2 mg/dL (0.7-1.3); GFR FOR AFR.AMER. > 60 ML/MIN (>=60 (CALC)); GFR OTHER RACES 59 ML/MIN (>=60 (CALC)); POTASSIUM 4.4 mmol/l (3.5-5.1); SGOT/AST 22 u/l (19-48); SODIUM 141 mmol/l (137-146)
[2023-03-30 11:13] VITALS: BP 135/74
[2023-03-30 14:47] VITALS: BP 116/65
[2023-03-30 19:20] VITALS: BP 137/65
[2023-03-31] VITALS (7 sets, daily range): BP systolic 119–163; BP diastolic 58–71
[2023-03-31 06:13] LABS: BASO% 0.4 % (0-3); EOS% 4.6 % (0-8); HEMATOCRIT 42.7 % (39.0-50.0); HEMOGLOBIN 14.2 g/dl (14.0-18.0); IMMATURE GRANULOCYTES 0.1 % (0.0-5.0); LYMPH% 22.5 % (15-41); MEAN CELL VOLUME 95.7 fL CALC (80.0-100.0); MEAN CORPUSCULAR HGB 31.8 pG CALC (26.0-32.0); MEAN CORPUSCULAR HGB CONC 33.3 g/dL CAL (32.0-36.0); MONO% 7.2 % (2-13); NEUT# 5.94 thou/uL (1.82-7.42); NEUT% 65.2 % (42-76); RED BLOOD COUNT 4.46 mill/uL (4.70-6.10); RED CELL DISTRI WIDTH 13.1 % (11.5-15.5)
[2023-03-31 06:41] LABS: ANION GAP 12 (6-22 (CALC)); BUN 19 mg/dL (8-23); BUN/CREATININE RATIO 17 (12-20 (CALC)); CARBON DIOXIDE 24 mmol/l (22-30); CHLORIDE 110 mmol/l (95-108); CREATININE 1.2 mg/dL (0.7-1.3); GFR FOR AFR.AMER. > 60 ML/MIN (>=60 (CALC)); GFR OTHER RACES 59 ML/MIN (>=60 (CALC)); POTASSIUM 4.5 mmol/l (3.5-5.1); SODIUM 141 mmol/l (137-146)
[2023-04-01 00:43] VITALS: BP 129/67
[2023-04-01 04:49] VITALS: BP 140/63
[2023-04-01 06:00] LABS: BASO% 0.5 % (0-3); EOS% 4.6 % (0-8); HEMATOCRIT 42.3 % (39.0-50.0); HEMOGLOBIN 13.9 g/dl (14.0-18.0); IMMATURE GRANULOCYTES 0.1 % (0.0-5.0); LYMPH% 22.2 % (15-41); MEAN CELL VOLUME 95.3 fL CALC (80.0-100.0); MEAN CORPUSCULAR HGB 31.3 pG CALC (26.0-32.0); MEAN CORPUSCULAR HGB CONC 32.9 g/dL CAL (32.0-36.0); MONO% 7.3 % (2-13); NEUT# 6.05 thou/uL (1.82-7.42); NEUT% 65.3 % (42-76); RED BLOOD COUNT 4.44 mill/uL (4.70-6.10)
[2023-04-01 06:18] LABS: ANION GAP 11 (6-22 (CALC)); BUN 19 mg/dL (8-23); BUN/CREATININE RATIO 19 (12-20 (CALC)); CARBON DIOXIDE 23 mmol/l (22-30); CHLORIDE 111 mmol/l (95-108); GFR FOR AFR.AMER. > 60 ML/MIN (>=60 (CALC)); GFR OTHER RACES > 60 ML/MIN (>=60 (CALC)); POTASSIUM 4.1 mmol/l (3.5-5.1); SODIUM 140 mmol/l (137-146)
[2023-04-01 07:05] VITALS: BP 149/72
[2023-04-01 11:03] VITALS: BP 148/62
[2023-04-01 14:46] VITALS: BP 141/65
[2023-04-01 19:18] VITALS: BP 132/67
[2023-04-02 04:25] VITALS: BP 128/68
[2023-04-02 05:07] LABS: BASO% 0.5 % (0-3); HEMATOCRIT 41.2 % (39.0-50.0); HEMOGLOBIN 13.8 g/dl (14.0-18.0); IMMATURE GRANULOCYTES 0.1 % (0.0-5.0); LYMPH% 22.9 % (15-41); MEAN CELL VOLUME 95.2 fL CALC (80.0-100.0); MEAN CORPUSCULAR HGB 31.9 pG CALC (26.0-32.0); MEAN CORPUSCULAR HGB CONC 33.5 g/dL CAL (32.0-36.0); MONO% 8.1 % (2-13); NEUT# 5.76 thou/uL (1.82-7.42); NEUT% 63.4 % (42-76); RED BLOOD COUNT 4.33 mill/uL (4.70-6.10); RED CELL DISTRI WIDTH 13.1 % (11.5-15.5)
[2023-04-02 05:14] LABS: ANION GAP 10 (6-22 (CALC)); BUN 21 mg/dL (8-23); BUN/CREATININE RATIO 19 (12-20 (CALC)); CARBON DIOXIDE 24 mmol/l (22-30); CHLORIDE 111 mmol/l (95-108); CREATININE 1.1 mg/dL (0.7-1.3); GFR FOR AFR.AMER. > 60 ML/MIN (>=60 (CALC)); GFR OTHER RACES > 60 ML/MIN (>=60 (CALC)); POTASSIUM 4.2 mmol/l (3.5-5.1); SODIUM 141 mmol/l (137-146)
[2023-04-02 07:00] VITALS: BP 132/66
[2023-04-02] MEDS ORDERED: TRESIBA100 UNIT/M SC (09:12)
[2023-04-02] MEDS ORDERED: MOUNJARO5 MG SC (09:13)
[2023-04-02 10:39] VITALS: BP 143/77
[2023-04-02] MEDS ORDERED: ATIVAN0.5 MG PO (12:07)
[2023-04-02 15:46] VITALS: BP 137/61
== END 2023-04-02 16:05 ==
LOC: MS2 15:05
PROVIDERS: Internal Medicine; Nurse Practitioner Family; Student in an Organized Health Care Education/Training Program; ADMIT Student in an Organized Health Care Education/Training Program; ATTEND Student in an Organized Health Care Education/Training Program
DX: R53.1 Weakness (principal); I10 Essential (primary) hypertension; E11.9 Type 2 diabetes mellitus without complications; N31.9 Neuromuscular dysfunction of bladder, unspecified; J44.9 Chronic obstructive pulmonary disease, unspecified; E03.9 Hypothyroidism, unspecified; E78.5 Hyperlipidemia, unspecified; M15.9 Polyosteoarthritis, unspecified; K59.00 Constipation, unspecified; F41.9 Anxiety disorder, unspecified; F32.A Depression, unspecified; Z99.3 Dependence on wheelchair; Z87.891 Personal history of nicotine dependence; Z79.84 Long term (current) use of oral hypoglycemic drugs; Z98.890 Other specified postprocedural states
CPT/HCPCS: J1650

== ENCOUNTER 2023-10-25 18:16 | Observation (INO) | payer MEDICARE, MEDICAID ==
[~2023-10-25] VITALS: Ht 152.4 cm; Wt 106.6 kg
[2023-10-25] VITALS (19 sets, daily range): BP systolic 91–143; BP diastolic 43–66
[~2023-10-25 18:16] MED LIST changes: +ATIVAN0.5 MG PO; +MOUNJARO5 MG SC; +TRESIBA100 UNIT/M SC
[2023-10-25] MEDS ORDERED: ACETAMINOPHEN 500 MG TAB PO ONE (18:25)
[2023-10-25] MEDS ORDERED: cefTRIAXone SODIUM 2 GM in SODIUM CHLORIDE 0.9% 100 ML IV ONE (18:25)
[2023-10-25 18:48] LABS: BASO% 0.2 % (0-3); EOS% 0.9 % (0-8); HEMATOCRIT 38.8 % (39.0-50.0); HEMOGLOBIN 12.7 g/dl (14.0-18.0); IMMATURE GRANULOCYTES 0.2 % (0.0-5.0); LYMPH% 9.2 % (15-41); MEAN CELL VOLUME 95.3 fL CALC (80.0-100.0); MEAN CORPUSCULAR HGB 31.2 pG CALC (26.0-32.0); MEAN CORPUSCULAR HGB CONC 32.7 g/dL CAL (32.0-36.0); MONO% 3.8 % (2-13); NEUT# 17.16 thou/uL (1.82-7.42); NEUT% 85.7 % (42-76); RED BLOOD COUNT 4.07 mill/uL (4.70-6.10)
[2023-10-25 18:55] LABS: ALKALINE PHOSPHATASE 67 u/l (38-126); ANION GAP 11 (6-22 (CALC)); BILIRUBIN, TOTAL 0.9 mg/dL (0.2-1.3); BUN 27 mg/dL (8-23); BUN/CREATININE RATIO 19 (12-20 (CALC)); CALCULATED LDLCHOLESTEROL 36 mg/dL (62-129 (CALC)); CARBON DIOXIDE 24 mmol/l (22-30); CHLORIDE 107 mmol/l (95-108); CREATININE 1.5 mg/dL (0.7-1.3); ESTIMATED GFR 48 ML/MIN (>=90 (CALC)); HDL CHOLESTEROL 33 mg/dL (39.0-59.0); POTASSIUM 4.5 mmol/l (3.5-5.1); SGOT/AST 21 u/l (19-48); SODIUM 137 mmol/l (137-146); TOTAL CHOLESTEROL 101 mg/dl (0-199); TOTAL TRIGLYCERIDES 157 mg/dl (0-149); VLDL CHOLESTROL 31 mg/dl (0-38 (CALC))
[2023-10-25] MEDS ORDERED: SODIUM CHLORIDE 0.9% 1,000 ML IV ONE ×3 (18:55→22:10)
[2023-10-25 18:58] LABS: INTERNATIONAL NORMALIZED RATIO 1.1 RATIO (0.7-1.3)
[2023-10-25 19:07] LABS: PROTHROMBIN TIME 10.6 SECONDS (9.0-12.5)
[2023-10-25] MEDS ORDERED: TOPROL XL25 M1 PO (20:46)
[2023-10-25] MEDS ORDERED: LASIX 40 MG TAB40 MG PO (20:46)
[2023-10-25] MEDS ORDERED: LOSARTAN POTASS50 MG PO (20:47)
[2023-10-25] MEDS ORDERED: SENNA/DSS1 TAB PO (20:48)
[2023-10-25 21:00] LABS: URINE BILIRUBIN - DIPSTICK Negative (NEGATIVE); URINE BLOOD DIPSTICK Trace-intact (NEGATIVE); URINE GLUCOSE - DIPSTICK Negative (NEGATIVE); URINE KETONE Negative (NEGATIVE); URINE NITRITE - DIPSTICK Negative (Negative); URINE PROTEIN - DIPSTICK Negative (NEG-TRACE); URINE SPECIFIC GRAVITY 1.015
[2023-10-25 21:07] LABS: URINE COLOR Yellow; URINE LEUK ESTERASE Small (NEGATIVE)
[2023-10-25 21:13] LABS: URINE BACTERIA MODERATE hpf
[2023-10-26] VITALS (83 sets, daily range): BP systolic 82–136; BP diastolic 51–91
[2023-10-26] MEDS ORDERED: ONDANSETRON HCl 4 MG/2 ML SDV IV PRN (00:35)
[2023-10-26] MEDS ORDERED: ACETAMINOPHEN 500 MG TAB PO PRN (00:40)
[2023-10-26 06:31] LABS: BASO% 0.3 % (0-3); EOS% 3.2 % (0-8); HEMATOCRIT 33.8 % (39.0-50.0); HEMOGLOBIN 11.1 g/dl (14.0-18.0); IMMATURE GRANULOCYTES 0.2 % (0.0-5.0); LYMPH% 14.5 % (15-41); MEAN CELL VOLUME 97.1 fL CALC (80.0-100.0); MEAN CORPUSCULAR HGB 31.9 pG CALC (26.0-32.0); MEAN CORPUSCULAR HGB CONC 32.8 g/dL CAL (32.0-36.0); MONO% 5.3 % (2-13); NEUT# 9.92 thou/uL (1.82-7.42); NEUT% 76.5 % (42-76); RED BLOOD COUNT 3.48 mill/uL (4.70-6.10); RED CELL DISTRI WIDTH 13.2 % (11.5-15.5)
[2023-10-26 06:53] LABS: ALBUMIN 3.4 g/dL (3.2-5.0); BILIRUBIN, TOTAL 0.6 mg/dL (0.2-1.3); CREATININE 1.3 mg/dL (0.7-1.3); POTASSIUM 4.2 mmol/l (3.5-5.1)
[2023-10-26] MEDS ORDERED: DEXTROSE 250 ML IV PRN (07:10)
[2023-10-26] MEDS ORDERED: ASPIRIN EC 81 MG/TAB PO SCH (09:00)
[2023-10-26] MEDS ORDERED: Meropenem 1 GM in SODIUM CHLORIDE 0.9% 100 ML IV SCH (09:00)
[2023-10-26] MEDS ORDERED: ATORVASTATIN CALCIUM 20 MG/TAB PO SCH (09:00)
[2023-10-26] MEDS ORDERED: busPIRone HCL 5 MG/TAB PO SCH (09:00)
[2023-10-26] MEDS ORDERED: GABAPENTIN 300 MG/CAP PO SCH (09:00)
[2023-10-26] MEDS ORDERED: METOPROLOL SUCCINATE 25 MG/TAB-TOPROL XL PO SCH (09:00)
[2023-10-26] MEDS ORDERED: INSULIN DETEMIR 100 UNITS/ML SC SCH (09:00)
[2023-10-26] MEDS ORDERED: amLODIPine BESYLATE 5 MG/TAB PO SCH (09:00)
[2023-10-26] MEDS ORDERED: TAMSULOSIN HCL 0.4 MG CAP PO SCH (09:00)
[2023-10-26] MEDS ORDERED: PANTOPRAZOLE SODIUM Sesquihydr 40 MG/TAB PO SCH (09:00)
[2023-10-26] MEDS ORDERED: LEVEMIR100 UNIT SC ×2 (10:16→10:17)
[2023-10-26] MEDS ORDERED: MIRTAZAPINE 15 MG/TAB PO SCH (21:00)
[2023-10-27] VITALS (28 sets, daily range): BP systolic 99–143; BP diastolic 44–70
[2023-10-27 05:07] LABS: MEAN CELL VOLUME 96.3 fL CALC (80.0-100.0); MEAN CORPUSCULAR HGB 32.1 pG CALC (26.0-32.0); MEAN CORPUSCULAR HGB CONC 33.3 g/dL CAL (32.0-36.0); RED BLOOD COUNT 3.74 mill/uL (4.70-6.10); RED CELL DISTRI WIDTH 13.1 % (11.5-15.5)
[2023-10-27 05:28] LABS: ALBUMIN 3.7 g/dL (3.2-5.0); BILIRUBIN, TOTAL 0.4 mg/dL (0.2-1.3); CREATININE 1.3 mg/dL (0.7-1.3); MAGNESIUM 2.2 mg/dL (1.6-2.3); POTASSIUM 4.1 mmol/l (3.5-5.1); TOTAL PROTEIN 6.4 g/dL (6.3-8.2)
[2023-10-27] MEDS ORDERED: LEVOTHYROXINE SODIUM 50 MCG/TAB PO SCH (06:00)
[2023-10-27] MEDS ORDERED: LEVOFLOXACIN500MG PO (08:10)
== END 2023-10-27 17:00 | disposition home or self-care (01) ==
LOC: ED 18:16 → ED-I 22:00 → ED 22:26 → ICU 22:27
PROVIDERS: Family Medicine; ADMIT Internal Medicine; ATTEND Internal Medicine
DX: N39.0 Urinary tract infection, site not specified (principal); B96.20 Unspecified Escherichia coli [E. coli] as the cause of diseases classified elsewhere; R53.1 Weakness; I12.9 Hypertensive chronic kidney disease with stage 1 through stage 4 chronic kidney disease, or unspecified chronic kidney disease; E11.22 Type 2 diabetes mellitus with diabetic chronic kidney disease; N18.9 Chronic kidney disease, unspecified; J44.9 Chronic obstructive pulmonary disease, unspecified; N31.9 Neuromuscular dysfunction of bladder, unspecified; R33.9 Retention of urine, unspecified; E78.5 Hyperlipidemia, unspecified; G80.9 Cerebral palsy, unspecified; F41.9 Anxiety disorder, unspecified; F32.A Depression, unspecified; M47.816 Spondylosis without myelopathy or radiculopathy, lumbar region; Z79.84 Long term (current) use of oral hypoglycemic drugs; Z79.4 Long term (current) use of insulin; Z87.891 Personal history of nicotine dependence; Z87.440 Personal history of urinary (tract) infections; Z99.3 Dependence on wheelchair; Z16.19 Resistance to other specified beta lactam antibiotics; Z20.822 Contact with and (suspected) exposure to COVID-19
CPT/HCPCS: Q9967

== ENCOUNTER 2024-02-04 18:49 | Observation (INO) | payer MEDICARE, MEDICAID ==
[2024-02-04] VITALS (7 sets, daily range): BP systolic 106–126; BP diastolic 50–62
[~2024-02-04] VITALS: Ht 177.8 cm; Wt 109.0 kg
[~2024-02-04 18:49] MED LIST changes: +LASIX 40 MG TAB40 MG PO; +LEVEMIR100 UNIT SC; +LEVOFLOXACIN500MG PO; +LOSARTAN POTASS50 MG PO; +SENNA/DSS1 TAB PO; +TOPROL XL25 M1 PO
--- NOTE | 2024-02-04 18:49 | NUR ---
PT TO ROOM WITH CAREGIVER VIA EMS STRETCHER
[2024-02-04] MEDS ORDERED: ISOVUE-300 (Iopamidol) 100 ML SDV IV ONE (19:40)
[2024-02-04] MEDS ORDERED: SODIUM CHLORIDE 0.9% 1,000 ML IV ONE ×2 (19:40→22:10)
[2024-02-04 20:03] LABS: BASO% 0.3 % (0-3); EOS% 1.3 % (0-8); HEMATOCRIT 35.5 % (39.0-50.0); HEMOGLOBIN 11.3 g/dl (14.0-18.0); IMMATURE GRANULOCYTES 0.1 % (0.0-5.0); LYMPH% 7.4 % (15-41); MEAN CELL VOLUME 97.3 fL CALC (80.0-100.0); MEAN CORPUSCULAR HGB CONC 31.8 g/dL CAL (32.0-36.0); NEUT# 11.94 thou/uL (1.82-7.42); NEUT% 82.9 % (42-76); RED BLOOD COUNT 3.65 mill/uL (4.70-6.10); RED CELL DISTRI WIDTH 13.3 % (11.5-15.5)
[2024-02-04 20:13] LABS: ALBUMIN 4.2 g/dL (3.2-5.0); ALKALINE PHOSPHATASE 88 u/l (38-126); ANION GAP 16 (6-22 (CALC)); BUN 29 mg/dL (8-23); BUN/CREATININE RATIO 15 (12-20 (CALC)); CARBON DIOXIDE 27 mmol/l (22-30); CHLORIDE 100 mmol/l (95-108); CREATININE 1.9 mg/dL (0.7-1.3); ESTIMATED GFR 36 ML/MIN (>=90 (CALC)); LIPASE 69 u/l (23-300); POTASSIUM 4.2 mmol/l (3.5-5.1); SGOT/AST 23 u/l (19-48); SODIUM 139 mmol/l (137-146); TOTAL PROTEIN 7.5 g/dL (6.3-8.2)
[2024-02-04 20:16] LABS: BILIRUBIN, TOTAL 0.9 mg/dL (0.2-1.3)
[2024-02-04 20:31] LABS: URINE BILIRUBIN - DIPSTICK Negative (NEGATIVE); URINE BLOOD DIPSTICK Negative (NEGATIVE); URINE GLUCOSE - DIPSTICK Negative (NEGATIVE); URINE KETONE Negative (NEGATIVE); URINE NITRITE - DIPSTICK Negative (Negative); URINE PH 5.5 (4.5-8.0); URINE PROTEIN - DIPSTICK 30 mg/dL (NEG-TRACE); URINE SPECIFIC GRAVITY 1.015; URINE UROBILINOGEN - DIPSTICK 0.2 E.U./dL (0.2)
[2024-02-04 20:33] LABS: URINE COLOR Yellow; URINE LEUK ESTERASE Small (NEGATIVE)
[2024-02-04 20:43] LABS: URINE BACTERIA MANY hpf; URINE RBC 0-2 RBC/hpf (0-5)
[2024-02-04 20:44] LABS: URINE MUCUS FEW hpf (NONE-FEW)
--- NOTE | 2024-02-04 21:43 | NUR ---
pt alert, oriented Xs 3 family at bedside. Indicates understanding of continued wait time
[2024-02-04] MEDS ORDERED: PIPERACILLIN Sodium-Tazobactam 3.375 GM in SODIUM CHLORIDE 0.9% 100 ML IV ONE (21:50)
[2024-02-04] MEDS ORDERED: ACETAMINOPHEN 325 MG/TAB PO PRN (22:10)
[2024-02-04] MEDS ORDERED: ONDANSETRON HCl 4 MG/2 ML SDV IV PRN (22:10)
[2024-02-05] VITALS (9 sets, daily range): BP systolic 101–131; BP diastolic 51–97
[2024-02-05] MEDS ORDERED: BUPROPION HCL150 MG PO (00:50)
--- NOTE | 2024-02-05 01:04 | NUR ---
report elli patiño placed on telebox. Transmitting successfully.to med/surg via stretcher
--- NOTE | 2024-02-05 02:55 | NUR ---
RECEIVED REPORT FROM ED NURSE LAURA, PATIENT ARRIVED MS UNIT AT 0122, PATIENT TRASPORTED VIA BED, PATIENT IS A PARAPLEGIC, DO SELF CATH, PER ED LAURA NO OUTPUT FROM STRAIGHT CATH, ED PUT SRIVASTAVA CATHETER, ONGOING IV NS @ 100CC/HR INFUSING WELL ON EMS IV LAC, ON TELEMETRY # 22, LUNG SOUNDS CLEAR. URINE OUTPUT CLOUDY VILMA, PATIENT DIABETIC BLOOD SUGAR 77 ON OWN GLUCOMETER, FOOD PROVIDED, PATIENT MILDLY RED ON SACRAL AREA INTACT, LES HOSE APPLIED, PATIENT ORIENTED TO ROOM AND CALL LIGHT SYSTEM, ADMISSION ASSESSMENT COMPLTED CALL LIGHT IN REACHED.
--- NOTE | 2024-02-05 05:14 | NUR ---
PATIENT RESTRING IN BED. EYES CLOSED, BREATHING UNLABORED, FOLY BAG EMPTIED, OUTPUT RECORDED, CALL LIGHT IN REACHED.
--- NOTE | 2024-02-05 07:55 | NUR ---
PT LAYING IN BED RESTING WITH EYES CLOSED, AROUSES EASILY TO VERBAL STIMULI, PT IS A&O X3, PUPILS PERRL, RESP. EVEN AND UNLABORED, LUNG SOUNDS ARE CLEAR, ABD DISTENDED AND SOFT WITH ACTIVE BOWEL SOUNDS, STRONG RADIAL PULSES, WEAK PEDAL PULSES, 18G LAC WITH IV FLUIDS INFUSING AT PRESCIBED RATE, SAFETY MEASURES REINFORCED, CALL GREGG WITHIN REACH
--- NOTE | 2024-02-05 12:00 | NUR ---
PT SITTING UP IN THE BED WATCHING TV AND EATING LUNCH, PT DENIES ANY NEEDS AT THIS TIME, CALL GREGG WITHIN REACH
[2024-02-05] MEDS ORDERED: TAMSULOSIN HCL 0.4 MG CAP PO SCH (14:00)
[2024-02-05] MEDS ORDERED: LOSARTAN Potassium 50 MG/TAB PO SCH (14:00)
[2024-02-05] MEDS ORDERED: ASPIRIN EC 81 MG/TAB PO SCH (14:00)
[2024-02-05] MEDS ORDERED: Meropenem 1 GM in SODIUM CHLORIDE 0.9% 100 ML IV SCH (14:00)
[2024-02-05] MEDS ORDERED: FUROSEMIDE 20 MG/TAB PO SCH (14:00)
[2024-02-05] MEDS ORDERED: buPROPion HCL 150 MG TAB SR PO SCH (14:00)
[2024-02-05] MEDS ORDERED: GABAPENTIN 300 MG/CAP PO SCH (14:00)
[2024-02-05] MEDS ORDERED: amLODIPine BESYLATE 5 MG/TAB PO SCH (14:00)
[2024-02-05] MEDS ORDERED: METOPROLOL SUCCINATE 25 MG/TAB-TOPROL XL PO SCH (14:00)
[2024-02-05] MEDS ORDERED: busPIRone HCL 5 MG/TAB PO SCH (15:00)
--- NOTE | 2024-02-05 16:31 | NUR ---
PT RESTING IN BED WTIH EYES CLOSED, AROUSES EASILY TO VERBAL STIMULI, PT DENIES ANY NEEDS AT THIS TIME, CALL GREGG WITHIN REACH
--- NOTE | 2024-02-05 20:10 | NUR ---
PT IS ALERT AND ORIENTED. RESPS ARE EVEN AND UNLABORED. PT ON CONTACT PRECAUTIONS DUE TO ESBL. CLEAR LUNGS SOUNDS TO AUCULTATION. SRIVASTAVA ON PLACE WITH VILMA, CLOUDY URINE NOTED. AQUACEL DRESSING PLACED ON SOCRAL ARE DUE TO REDNESS. 18 G IV LAC FLUSHED WITH 5CC APPEAR C;PHYLLIS, DRY AND HEALTHY. CALL LITGH IN REACH AND SAFETY PRECAUTIONS IN PLACE. ENCOURAGED TO CALL FOR ASSISTANCE.
[2024-02-05] MEDS ORDERED: ATORVASTATIN CALCIUM 20 MG/TAB PO SCH (21:00)
[2024-02-05] MEDS ORDERED: Heparin SODIUM (Porcine) 5,000 UNITS/ML SDV SC SCH (21:00)
[2024-02-05] MEDS ORDERED: DEXTROSE 50% 50 ML/SYR IV PRN (21:20)
[2024-02-05] MEDS ORDERED: DEXTROSE 250 ML IV PRN (21:20)
[2024-02-05] MEDS ORDERED: INSULIN LISPRO 100 UNITS/ML ML SC SCH (21:30)
[2024-02-06 00:13] VITALS: BP 133/72
--- NOTE | 2024-02-06 01:00 | NUR ---
PT ON CONTACT PRECAUTIONS RESTING ON BED WTH EYES CLOSED AT THIS TIME. RESPS ARE EVEN AND UNLABORED. NO SIGNS OF DISTRESS NOTED. CALL LIGHT IN REACH AND SAFETY PRECAUTIONS IN PLACE.
--- NOTE | 2024-02-06 04:22 | NUR ---
PT RESTING ON BED WITH EYES CLOSED. RESPS ARE EVEN AND UNLABORED. NO SIGNS OF DISTRESS NOTED. SRIVASTAVA STILL ON PLACE. TELE MONITOR RUNNING SR-73 AT THIS TIME. CALL LIGHT IN REACH AND SAFETY PRECAUTIONS ON PLACE.
[2024-02-06 04:57] VITALS: BP 104/65
[2024-02-06 05:17] LABS: BASO% 0.6 % (0-3); HEMOGLOBIN 10.4 g/dl (14.0-18.0); IMMATURE GRANULOCYTES 0.1 % (0.0-5.0); LYMPH% 17.7 % (15-41); MEAN CELL VOLUME 95.2 fL CALC (80.0-100.0); MEAN CORPUSCULAR HGB CONC 32.5 g/dL CAL (32.0-36.0); MONO% 8.2 % (2-13); NEUT# 6.3 thou/uL (1.82-7.42); NEUT% 69.4 % (42-76); RED BLOOD COUNT 3.36 mill/uL (4.70-6.10); RED CELL DISTRI WIDTH 12.9 % (11.5-15.5)
[2024-02-06 05:35] LABS: ALBUMIN 3.2 g/dL (3.2-5.0); BILIRUBIN, TOTAL 0.3 mg/dL (0.2-1.3); CREATININE 1.2 mg/dL (0.7-1.3); MAGNESIUM 2.2 mg/dL (1.6-2.3); POTASSIUM 4.1 mmol/l (3.5-5.1); TOTAL PROTEIN 5.9 g/dL (6.3-8.2)
[2024-02-06] MEDS ORDERED: LEVOTHYROXINE SODIUM 50 MCG/TAB PO SCH (06:00)
[2024-02-06 07:31] VITALS: BP 124/57
[2024-02-06 16:21] VITALS: BP 124/53
[2024-02-06 19:19] VITALS: BP 127/50
--- NOTE | 2024-02-06 20:00 | NUR ---
RECEIVED REPORT FROM NURSE PRASANNA PATIENT RESTING IN BED, REMAINS ON CONTACT ISOLATION FOR ESBL IN URINE, UIV ON LAC PATENT FLUSHES WELL, ON TELEMETRY, SRIVASTAVA CATH DRAINING YELLOW COLORED URINE, CALL LIGHT IN REACHED.
[2024-02-06] MEDS ORDERED: ENOXAPARIN SODIUM 40 MG/0.4 ML SYR SC SCH (21:00)
[2024-02-06 23:46] VITALS: BP 121/58
--- NOTE | 2024-02-07 | NUR ---
PATIENT RESTING ON LEFT SIDE, BRTEATHING UNLABORED, NO DISCOMFORTS NOTED AT THIS TIME CALL LIGHT WITHIN REACHED
[2024-02-07 03:53] VITALS: BP 127/54
--- NOTE | 2024-02-07 04:46 | NUR ---
PATIENT RESTING. BREATHING EVEN UNALBORTED, SANITOR IN ROOM, CALL LIGHT IN REACHED.
[2024-02-07 05:57] LABS: BASO% 0.6 % (0-3); EOS% 4.4 % (0-8); HEMATOCRIT 32.8 % (39.0-50.0); HEMOGLOBIN 10.9 g/dl (14.0-18.0); IMMATURE GRANULOCYTES 0.1 % (0.0-5.0); LYMPH% 21.8 % (15-41); MEAN CELL VOLUME 94.3 fL CALC (80.0-100.0); MEAN CORPUSCULAR HGB 31.3 pG CALC (26.0-32.0); MEAN CORPUSCULAR HGB CONC 33.2 g/dL CAL (32.0-36.0); MONO% 9.3 % (2-13); NEUT# 5.02 thou/uL (1.82-7.42); NEUT% 63.8 % (42-76); RED BLOOD COUNT 3.48 mill/uL (4.70-6.10); RED CELL DISTRI WIDTH 12.6 % (11.5-15.5)
[2024-02-07 06:03] LABS: ALBUMIN 3.2 g/dL (3.2-5.0); BILIRUBIN, TOTAL 0.4 mg/dL (0.2-1.3); POTASSIUM 4.1 mmol/l (3.5-5.1); TOTAL PROTEIN 5.9 g/dL (6.3-8.2)
[2024-02-07 06:22] VITALS: BP 127/66
[2024-02-07 07:09] VITALS: BP 127/66
--- NOTE | 2024-02-07 07:30 | NUR ---
SHIFT CHANGE REPORT, PT AWAKE ALERT AND ORIENTED RESTING IN BED, HE FAVORS LYING ON HIS LEFT SIDE STATING HE IS MORE COMFORTABLE ON THAT SIDE, ENCOURAGED TO TURN FROM SIDE TO SIDE PERIODICALLY, TELE MONITOR IN PLACE, SRIVASTAVA CATHETER IN PLACE WITH YELLOW URINE, CALL GREGG IN REACH AND BED LOCKED IN LOWEST POSITION.
[2024-02-07] MEDS ORDERED: ERTAPENEM 1 GM in SODIUM CHLORIDE 0.9% 50 ML IV SCH (09:30)
[2024-02-07] MEDS ORDERED: ERTAPENEM1 G1 IV (09:36)
--- NOTE | 2024-02-07 09:42 | NUR ---
SRIVASTAVA REMOVED @ 0940, PROCEDURE WELL TOLERATED.
[2024-02-07 10:53] VITALS: BP 149/75
--- NOTE | 2024-02-07 11:49 | NUR ---
INFORMED OF ORDER FOR PICC LINE FOR CONTINUED COURSE OF ANTIBIOTICS, STATED UNDERSTANDING, BEING TRANSPORTED VIA BED AT THIS TIME TO RADIOLOGY.
[2024-02-07 12:26] VITALS: BP 149/75
--- NOTE | 2024-02-07 13:00 | NUR ---
PT STRAIGHT CATHETERIZE SELF AND DRAINED 800ML URINE, REPORTED HE HAD NO DIFFICULTY DOING THIS PROCEDURE
--- NOTE | 2024-02-07 14:59 | NUR ---
Discharge instructions given. Patient verbalizes understanding of same. Discharged in stable condition via Wheelchair to Home with *Other. All belongings sent with pt.
--- NOTE | 2024-02-07 18:44 | NUR ---
PT JUST REPORTED HE HAD BM, SUPPOSITORY WAS EFFECTIVE.
--- NOTE | 2024-02-10 10:35 | NUR ---
Discharge follow up call completed 02/10/24. Pt states he is doing a little better since discharge. Patient states he is receiving infusion therapy at home but was prescribed no oral medications at discharge. Pt has a follow up appointment with his PCP in 1 month. He has transportation issues and was unable to schedule an appointment sooner. No needs or concerns verbalized by patient at this time.
== END 2024-02-07 14:57 | disposition home health service (06) ==
LOC: ED 18:49 → ED-I 21:57 → ED 22:10 → MS2 22:11
PROVIDERS: Emergency Medicine; ADMIT Internal Medicine; ATTEND Internal Medicine
PROC: 0T9B70Z Drainage of Bladder with Drainage Device, Via Natural or Artificial Opening (ICD-10-PCS; 2024-02-04)
PROC: 02HV33Z Insertion of Infusion Device into Superior Vena Cava, Percutaneous Approach (ICD-10-PCS; principal; 2024-02-07)
PROC: B518ZZA Fluoroscopy of Superior Vena Cava, Guidance (ICD-10-PCS; 2024-02-07)
DX: N30.90 Cystitis, unspecified without hematuria (principal); B96.20 Unspecified Escherichia coli [E. coli] as the cause of diseases classified elsewhere; N17.9 Acute kidney failure, unspecified; I13.0 Hypertensive heart and chronic kidney disease with heart failure and stage 1 through stage 4 chronic kidney disease, or unspecified chronic kidney disease; E11.22 Type 2 diabetes mellitus with diabetic chronic kidney disease; I50.9 Heart failure, unspecified; N18.9 Chronic kidney disease, unspecified; E11.40 Type 2 diabetes mellitus with diabetic neuropathy, unspecified; E11.69 Type 2 diabetes mellitus with other specified complication; E78.5 Hyperlipidemia, unspecified; J44.9 Chronic obstructive pulmonary disease, unspecified; R33.9 Retention of urine, unspecified; I25.10 Atherosclerotic heart disease of native coronary artery without angina pectoris; F41.9 Anxiety disorder, unspecified; N31.9 Neuromuscular dysfunction of bladder, unspecified; F32.A Depression, unspecified; Z79.84 Long term (current) use of oral hypoglycemic drugs; Z87.440 Personal history of urinary (tract) infections; Z87.891 Personal history of nicotine dependence; Z16.12 Extended spectrum beta lactamase (ESBL) resistance; Z20.822 Contact with and (suspected) exposure to COVID-19
CPT/HCPCS: J1335; J1644; J1650; J1815; J2543

== ENCOUNTER 2024-02-19 14:03 | Observation (INO) | payer MEDICARE, MEDICAID ==
[2024-02-19] VITALS (26 sets, daily range): BP systolic 102–137; BP diastolic 43–87
[~2024-02-19] VITALS: Ht 177.8 cm; Wt 104.0 kg
[~2024-02-19 14:03] MED LIST changes: +BUPROPION HCL150 MG PO; +ERTAPENEM1 G1 IV
--- NOTE | 2024-02-19 14:03 | NUR ---
PT TO ROOM VIA EMS
[2024-02-19] MEDS ORDERED: cefTRIAXone SODIUM 2 GM in SODIUM CHLORIDE 0.9% 100 ML IV STA (14:09)
[2024-02-19] MEDS ORDERED: SODIUM CHLORIDE 0.9% 1,000 ML BAG IV ONE (14:10)
[2024-02-19] MEDS ORDERED: ACETAMINOPHEN 500 MG TAB PO ONE (14:15)
[2024-02-19] MEDS ORDERED: SODIUM CHLORIDE 0.9% 1,000 ML IV ONE (14:20)
[2024-02-19 14:44] LABS: BASO% 0.3 % (0-3); EOS% 0.2 % (0-8); HEMATOCRIT 37.7 % (39.0-50.0); IMMATURE GRANULOCYTES 0.4 % (0.0-5.0); LYMPH% 4.5 % (15-41); MEAN CELL VOLUME 97.9 fL CALC (80.0-100.0); MEAN CORPUSCULAR HGB 31.2 pG CALC (26.0-32.0); MEAN CORPUSCULAR HGB CONC 31.8 g/dL CAL (32.0-36.0); MONO% 5.3 % (2-13); NEUT# 19.91 thou/uL (1.82-7.42); NEUT% 89.3 % (42-76); RED BLOOD COUNT 3.85 mill/uL (4.70-6.10); RED CELL DISTRI WIDTH 13.2 % (11.5-15.5)
[2024-02-19 14:57] LABS: ALKALINE PHOSPHATASE 78 u/l (38-126); ANION GAP 19 (6-22 (CALC)); BUN 22 mg/dL (8-23); BUN/CREATININE RATIO 18 (12-20 (CALC)); CARBON DIOXIDE 23 mmol/l (22-30); CHLORIDE 102 mmol/l (95-108); CREATININE 1.2 mg/dL (0.7-1.3); ESTIMATED GFR 62 ML/MIN (>=90 (CALC)); POTASSIUM 4.8 mmol/l (3.5-5.1); SGOT/AST 32 u/l (19-48); SODIUM 139 mmol/l (137-146); TOTAL PROTEIN 6.9 g/dL (6.3-8.2)
--- NOTE | 2024-02-19 15:00 | NUR ---
PT ASSESSMENT UNCHANGED-PT VOICING NO COMPLAINTS.
[2024-02-19 15:03] LABS: BILIRUBIN, TOTAL 0.7 mg/dL (0.2-1.3)
--- NOTE | 2024-02-19 16:00 | NUR ---
PT ADVISED OF ADMISSION.
[2024-02-19 16:17] LABS: URINE BILIRUBIN - DIPSTICK Negative (NEGATIVE); URINE BLOOD DIPSTICK Negative (NEGATIVE); URINE GLUCOSE - DIPSTICK Negative (NEGATIVE); URINE KETONE Negative (NEGATIVE); URINE LEUK ESTERASE Trace (NEGATIVE); URINE NITRITE - DIPSTICK Negative (Negative); URINE PH 6.5 (4.5-8.0); URINE PROTEIN - DIPSTICK Negative (NEG-TRACE); URINE SPECIFIC GRAVITY 1.015; URINE UROBILINOGEN - DIPSTICK 0.2 E.U./dL (0.2)
[2024-02-19 16:20] LABS: URINE COLOR Yellow
--- NOTE | 2024-02-19 17:00 | NUR ---
PT RESTING COMFORTABLY-VOICING NO CONCERNS
--- NOTE | 2024-02-19 18:00 | NUR ---
PT EATING MEAL-NO CHANGE FROM ASSESSMENT.
[2024-02-19] MEDS ORDERED: MAGNESIUM HYDROXIDE 30 ML UDC PO PRN (18:30)
[2024-02-19] MEDS ORDERED: ALBUTEROL SULFATE 8 GM INH IN PRN (18:30)
[2024-02-19] MEDS ORDERED: SODIUM CHLORIDE 0.9% 1,000 ML IV PRN (18:30)
[2024-02-19] MEDS ORDERED: ACETAMINOPHEN 325 MG/TAB PO PRN (18:30)
[2024-02-19] MEDS ORDERED: CEFEPIME HYDROCHLORIDE 2 GM in SODIUM CHLORIDE 0.9% 100 ML IV SCH (18:35)
[2024-02-19] MEDS ORDERED: CLARIFY DOSE IV ONE (19:05)
--- NOTE | 2024-02-19 19:41 | NUR ---
PT MEDICATED PER MD ORDERS. PT UPDATED ON POC, AWAITING FOR TRANSFPORT TO [facility] AT THIS TIME. PT VOICES UNDERSTANDING. PT CALL LIGHT WITHIN REACH.
--- NOTE | 2024-02-19 20:56 | NUR ---
PATIENT TAKEN TO ROOM 269.
[2024-02-19] MEDS ORDERED: busPIRone HCL 5 MG/TAB PO SCH (21:00)
[2024-02-19] MEDS ORDERED: GABAPENTIN 300 MG/CAP PO SCH (21:00)
[2024-02-19] MEDS ORDERED: ENOXAPARIN SODIUM 40 MG/0.4 ML SYR SC SCH (21:00)
[2024-02-19] MEDS ORDERED: MIRTAZAPINE 15 MG/TAB PO SCH (21:00)
[2024-02-19] MEDS ORDERED: ATORVASTATIN CALCIUM 20 MG/TAB PO SCH (21:00)
[2024-02-19] MEDS ORDERED: CLARIFY DOSE IV PRN (21:10)
--- NOTE | 2024-02-19 21:30 | NUR ---
PATIENT RESTING IN BED AT THIS TIME-STATES THAT HE CAME TO THE ER TODAY DUE TO FEELING WEAK AND FEBRILE EVEN THOUGH HE STATES THAT HE DID NOT CHECK HIS TEMP AT HOME. IVF NS HUNG AND INFUSING BOLUS ORDER IN THE ER WAS FOR 3000CC BOLUS AND PATIENT ONLY RECEIVED 1L. IV SITE IS TO LAC AND IS HEALTY WITH GOOD BLOOD RETURN WHEN FLUSHED. PATIENT WAS ADMITTED FOR SEPSIS WITH LEUKOCYTOSIS WITH WBC->22,00 AND FEVER. PATIENT DID APPARENTLY RECEIVE THE ROCEPHIN IN ER ALTHOUGH THE MED WAS CHARTED NOT GIVEN ON THE EMAR ACCORDING TO THE NSG SUP. PATIENT ALSO HAS VANCO ORDERED AND WILL ADMINISTAR SOON PROFILED ON EMAR. 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 THIS STARTED AFTER HAVING BACK SURGERY YEARS AGO. ORIENTED TO ROOM AND SURROUNDINGS. INSTRUCTED ON USE OF NURSE CALL LIGHT SYSTEM AND TV REMOTE. BLOOD SUGAR WAS CHECKED AND WAS 134 AT THIS TIME. PROVIDED WITH PO FLUIDS AT BEDSIDE. CALL LIGHT IN REACH. WILL CONT TO MONITOR.
[2024-02-19] MEDS ORDERED: VANCOMYCIN HCL 1 GM in SODIUM CHLORIDE 0.9% 250 ML IV SCH (22:00)
[2024-02-19] MEDS ORDERED: VANCOMYCIN HCL 1 GM/VIAL IV ONE (22:35)
[2024-02-19] MEDS ORDERED: SODIUM CHLORIDE 0.9% 500 ML IV ONE (22:35)
--- NOTE | 2024-02-19 23:00 | NUR ---
VT AARIVED FROM ER AROUND 2039 HRS. REPORT RECEIVED FROM ER GILL. ASSESSMENT COMPLETED AT THIS TIME. ALERT AND ORIENTED X3. RESPS ARE EVEN AND UNLABORED. NO DISTRESS NOTED. LUNGS CLEAR TO AUSCULTATION. NO FEVEER UPON ARRIVAL. PT STATES HE CATHERISEZES HIMSELF EVERY MORNING AND EVERY NIGHT- BROUGHT HIS OWN SUPPLIES. TELE MONITOR ON PLACE. 18 G IV SITE APPEARS HEALTHY AND CLEAN FLUSHED WITH 5 CC. TEDS HOSE AND SAFETY SOCKS ON PLACE. DENIES ANY NEEDS AT THIS TIME. CALL LIGHT IN REACH AND SAFETY PRECAUTIONS ON PLACE
[2024-02-20] VITALS (7 sets, daily range): BP systolic 115–135; BP diastolic 47–67
--- NOTE | 2024-02-20 04:00 | NUR ---
PT SITTING UP ON THE RECLINER AT THIS TIME WATCHING TV. RESPS ARE EVEN AND UNLABORED. IVF NS INFUSING VIA LEFT FOREARM AT 100 MLS/HR. DENIES ANY NEEDS. CALL LIGHT IN REACH AND SAFETY PRECAUTIONS ON PLACE.
--- NOTE | 2024-02-20 04:55 | NUR ---
PT RESTING ON BED WITH EYES CLOSED. RESPS ARE EVEN AND UNLABORED. NO SIGNS OF DISTRESS. TELE MONITOR ON PLACE SHOWING SR-62. IVF NS INFUSING AT 100 ML/HR AT THIS TIME. CALL LIGHT IN REACH AND SAFETY PRECAUTIONS ON PLACE.
[2024-02-20 04:59] LABS: HEMATOCRIT 32.5 % (39.0-50.0); HEMOGLOBIN 10.6 g/dl (14.0-18.0); MEAN CORPUSCULAR HGB 31.6 pG CALC (26.0-32.0); MEAN CORPUSCULAR HGB CONC 32.6 g/dL CAL (32.0-36.0); RED BLOOD COUNT 3.35 mill/uL (4.70-6.10); RED CELL DISTRI WIDTH 13.2 % (11.5-15.5)
[2024-02-20 05:15] LABS: ALBUMIN 3.2 g/dL (3.2-5.0); MAGNESIUM 2.1 mg/dL (1.6-2.3)
[2024-02-20 05:20] LABS: BILIRUBIN, TOTAL 0.4 mg/dL (0.2-1.3); POTASSIUM 3.8 mmol/l (3.5-5.1)
[2024-02-20] MEDS ORDERED: LEVOTHYROXINE SODIUM 50 MCG/TAB PO SCH (06:00)
--- NOTE | 2024-02-20 06:59 | NUR ---
PATIENT LAYING IN BED, WATCHING TV. PATIENT A&OX4 AND ABLE TO MAKE NEEDS KNOWN. PATIENT DENIES ANY NEEDS AT THIS TIME.
[2024-02-20] MEDS ORDERED: VANCOMYCIN HCL 1,250 MG in SODIUM CHLORIDE 0.9% 225 ML IV SCH (09:00)
[2024-02-20] MEDS ORDERED: METOPROLOL SUCCINATE 25 MG/TAB-TOPROL XL PO SCH (09:00)
[2024-02-20] MEDS ORDERED: buPROPion HCL 150 MG TAB SR PO SCH (09:00)
[2024-02-20] MEDS ORDERED: ASPIRIN EC 81 MG/TAB PO SCH (09:00)
[2024-02-20] MEDS ORDERED: LOSARTAN Potassium 50 MG/TAB PO SCH (09:00)
[2024-02-20] MEDS ORDERED: PANTOPRAZOLE SODIUM Sesquihydr 40 MG/TAB PO SCH (09:00)
[2024-02-20] MEDS ORDERED: amLODIPine BESYLATE 5 MG/TAB PO SCH (09:00)
[2024-02-20] MEDS ORDERED: TAMSULOSIN HCL 0.4 MG CAP PO SCH (09:00)
--- NOTE | 2024-02-20 10:09 | NUR ---
S: DONNAPANDA Gomez SR is a 78 M who presents with SEPSIS. All medications in patient's chart were reviewed. O: VS: BP 120/60, P 62, RR 19,T 97 W 104kg, HT 70 IN , Scr=1,CrCl= 74 ml/min A: Blood culture is pending P: Patient is on CEFEPIME 2GM IV Q8H AND RECEIVED VANCOMYCIN 1GM IV X 1 DOSE IN THE ED Vancomycin ordered for pharmacy to dose. Start Vancomycin 1250MG IV Q12H. Vancomycin trough is drawn before the 4th dose on 02/21/24 @0830 Vancomycin goal trough is between 15-20 mcg/ml. Pharmacy will follow and or advise on antibiotics use as needed.
[2024-02-20] MEDS ORDERED: BENZOCAINE-MENTHOL (MOUTH-THRO 1 LOZ LOZ PO PRN (10:30)
--- NOTE | 2024-02-20 11:40 | NUR ---
PATIENT LAYING IN BED. SITTER AT DOOR. NO SIGNS OR SYMPTOMS OF PAIN OR DISTRESS NOTED.
--- NOTE | 2024-02-20 11:46 | NUR ---
PATIENT LAYING IN BED, HAVING LUNCH. PATIENT DENIES ANY NEEDS AT THIS TIME.
[2024-02-20] MEDS ORDERED: CEFEPIME HYDROCHLORIDE 2 GM in SODIUM CHLORIDE 0.9% 100 ML IV SCH (14:00)
--- NOTE | 2024-02-20 15:50 | NUR ---
PATIENT LAYING IN BED, WATCHING TV. PATIENT DENIES ANY NEEDS AT THIS TIME.
--- NOTE | 2024-02-20 19:45 | NUR ---
PT RESTING ON BED WATCHING TV AT THIS MOEMNT. ALERT AND ORIENTED X3. NO SIGNS OF DISTRESS NOTED DURING THE ASSESSMENT. ACTIVE BOWEL SOUNDS. IVF NS INFUSING VIA 18 G RIGHT FOREARM AT 120 MLS/HR. PALPABLE PEDAL PULSES. TELE MONITOR ON PLACE SHOWING SR-79. LES HOSE AND SAFETY SOCKS ON PLACE. DENIES ANY NEEDS AT THIS TIME. CALL LIGHT IN REACH AND SAFETY PRECAUTIONS ON PLACE.
[2024-02-21 00:03] VITALS: BP 125/61
--- NOTE | 2024-02-21 04:10 | NUR ---
PATIENT RESTING ON BED IN SUPINE POSITION. BREATHING IS EVEN AND UNLABORED. IVF NS STILL INFUSING AT 120 MLS/HR VIA RIGHT AC. CALL LIGHT IN REACH
[2024-02-21 04:23] LABS: HEMATOCRIT 33.2 % (39.0-50.0); HEMOGLOBIN 10.9 g/dl (14.0-18.0); MEAN CELL VOLUME 96.5 fL CALC (80.0-100.0); MEAN CORPUSCULAR HGB 31.7 pG CALC (26.0-32.0); MEAN CORPUSCULAR HGB CONC 32.8 g/dL CAL (32.0-36.0); RED BLOOD COUNT 3.44 mill/uL (4.70-6.10)
[2024-02-21 04:29] VITALS: BP 133/65
[2024-02-21 04:30] LABS: BILIRUBIN, TOTAL 0.4 mg/dL (0.2-1.3); POTASSIUM 3.9 mmol/l (3.5-5.1); TOTAL PROTEIN 5.8 g/dL (6.3-8.2)
[2024-02-21 06:17] VITALS: BP 148/64
--- NOTE | 2024-02-21 06:20 | NUR ---
PATIENT RESTING IN BED-REFUSING TO GET OOB TO GET STANDING SCALE WEIGHT AT THIS TIME. STATES THAT HE IS TOO WEAK. BED SCALE WEIGHT OBTAINED AND WAS 104.1. DOWN FROM YESTERDAY WEIGHT OF I04.5. CALL LIGHT IN REACH. WILL CONT TO MONITOR.
--- NOTE | 2024-02-21 08:25 | NUR ---
SHIFT CHANGE REPORT, PT AWAKE ALERT AND ORIENTED RESTING IN BED, NO C/O DISCOMFORT AT THIS TIME, TELE MONITOR IN PLACE, CALL GREGG IN REACH AND BED LOCKED IN LOWEST POSITION.
[2024-02-21 09:39] VITALS: BP 139/73
--- NOTE | 2024-02-21 12:00 | NUR ---
RESTING IN BED, NO NEW COMPLAINS.
[2024-02-21 13:54] LABS: BASO% 0.6 % (0-3); EOS% 4.3 % (0-8); HEMATOCRIT 33.7 % (39.0-50.0); HEMOGLOBIN 10.9 g/dl (14.0-18.0); IMMATURE GRANULOCYTES 0.2 % (0.0-5.0); LYMPH% 15.3 % (15-41); MEAN CELL VOLUME 95.7 fL CALC (80.0-100.0); MEAN CORPUSCULAR HGB CONC 32.3 g/dL CAL (32.0-36.0); MONO% 5.8 % (2-13); NEUT# 7.33 thou/uL (1.82-7.42); NEUT% 73.8 % (42-76); RED BLOOD COUNT 3.52 mill/uL (4.70-6.10); RED CELL DISTRI WIDTH 13.1 % (11.5-15.5)
[2024-02-21 15:27] VITALS: BP 117/52
--- NOTE | 2024-02-21 19:52 | NUR ---
Pt is alert and orient. He is able to make needs known. No complaint of pain or discomfort at this time. No distress noted. Pt breathing is even and non-labored. All safety measures remain in place. Bed in low position with call light within reach.
[2024-02-21 20:16] VITALS: BP 131/62
--- NOTE | 2024-02-22 00:15 | NUR ---
Pt is laying on his left side with his eyes closed. No complaint of pain or discomfort. No distress noted. Breathing remains even and non-labored. Bed in low position with call light within reach.
[2024-02-22 00:27] VITALS: BP 134/62
--- NOTE | 2024-02-22 04:03 | NUR ---
Pt is laying on his side with his eyes closed. No distress noted at this time. Pt remains on contact isolation for hx of esbl. No complaint of pain or discomfort. Breathing remains even and non-labored. Bed in low position with call light within reach.
[2024-02-22 04:28] VITALS: BP 127/64
[2024-02-22 05:29] LABS: BASO% 0.5 % (0-3); EOS% 4.4 % (0-8); HEMATOCRIT 33.1 % (39.0-50.0); HEMOGLOBIN 10.8 g/dl (14.0-18.0); IMMATURE GRANULOCYTES 0.1 % (0.0-5.0); LYMPH% 17.9 % (15-41); MEAN CELL VOLUME 95.9 fL CALC (80.0-100.0); MEAN CORPUSCULAR HGB 31.3 pG CALC (26.0-32.0); MEAN CORPUSCULAR HGB CONC 32.6 g/dL CAL (32.0-36.0); MONO% 6.2 % (2-13); NEUT# 6.7 thou/uL (1.82-7.42); NEUT% 70.9 % (42-76); RED BLOOD COUNT 3.45 mill/uL (4.70-6.10); RED CELL DISTRI WIDTH 13.1 % (11.5-15.5)
[2024-02-22 05:57] LABS: BILIRUBIN, TOTAL 0.3 mg/dL (0.2-1.3); CREATININE 1.3 mg/dL (0.7-1.3); TOTAL PROTEIN 5.8 g/dL (6.3-8.2)
[2024-02-22 06:31] VITALS: BP 138/64
--- NOTE | 2024-02-22 07:10 | NUR ---
REPORT RECEIVED FROM SAROJ SINGH
[2024-02-22 07:23] VITALS: BP 138/64
--- NOTE | 2024-02-22 07:41 | NUR ---
AT BEDSIDE DISCUSSING POC WITH PT
[2024-02-22] MEDS ORDERED: AMOX/K CLAV875 M1 PO (08:31)
[2024-02-22 10:57] VITALS: BP 143/61
[2024-02-22 11:19] VITALS: BP 143/61
--- NOTE | 2024-02-22 11:25 | NUR ---
PT RESTING IN SEMI FOWLERS POSITION,A&O X3;PT DENIES ANY CURRENT PAIN OR DISCOMFORTS,PAIN SCALE AND REPORTING EDUCATED;ASSESSMENT COMPLETED;RESPIRATIONS EVEN AND UNLABORED ON RA,CLEAR LUNG SOUNDS NOTED;ABDOMEN DISTENDED/SOFT ON PALPATION AND ACTIVE IN ALL 4 QUADRANTS;STRONG PEDAL PULSES;SKIN INTACT;TELE MONITORING IN PLACE;#18G TO RAC INFUSING NS @ 120ML/HR PER ORDER,SITE APPEARS HEALTHY;PT SELF CATHS TID;PT TO BE DISCHARGED HOME THIS AFTERNOON- PT VERBALIZES UNDERSTANDING AND DENIES ANY QUESTIONS OR NEEDS;PT ENCOUARGED TO CALL FOR ASSISTANCE IF NEEDED;FALL PRECAUTIONS IN PLACE WITH BED IN THE LOWEST POSITION AND CALL LIGHT IN REACH;FREQUENT ROUNDS MADE.
--- NOTE | 2024-02-22 11:25 | NUR ---
PT RESTING IN SEMI FOWLERS POSITION WATCHING TV;RESPIRATIONS EVEN AND UNLABORED ON RA;PT DENIES ANY CURRENT PAIN OR DISCOMFORTS;TELE MONITORING IN PLACE;IV SITE TO [facility] CONTINUES TO INFUSE NS @ 120ML/HR. 400CC OF CLEAR/YELLOW URINE EMPTIED FROM URINAL. PT DENIES ANY ADDITINAL NEEDS;REPORTS SON-IN-LAW WILL BE PICKING HIM UP FOR DISCHARGE AT APPROX 1300;ENCOURAGED TO CALL FOR ASSISTANCE IF NEEDED;CALL LIGHT IN REACH;FREQUENT ROUNDS MADE.
--- NOTE | 2024-02-22 12:35 | NUR ---
ALL DISCHARGE INSTRUCTIONS PROVIDED AT THIS TIME;PT INSTRUCTED TO F/U WITH UROLOGIST, PRACTICE STERILE TECHNIQUE WITH SELF STRAIGHT CATH, TAKE ABX DIRECTED;PT VERBALIZES UNDERSTANDING AND DENIES ANY ADDITIONAL QUESTIONS OR NEEDS;IV SITE REMOVED WITH CATHETER INTACT AND TELE MONITORING DC;WC TO BE PROVIDED FOR DC HOME.FAMILY TO TRANSPORT PT HOME.FREQUENTY ROUNDS MADE.
--- NOTE | 2024-02-22 13:00 | NUR ---
Discharge instructions given. Patient verbalizes understanding of same. Discharged in stable condition via Wheelchair to Home with family. All belongings sent with pt. PT TRANSPORTED TO [facility] IN STABLE CONDITION VIA ACCOMPANIED BY JULEE PEARL, APPLICATION COUNSELOR AND SAROJ SAMS. ALL PERSONAL BELONGINGS LEFT WITH PT AT THIS TIME. FAMILY TP TRANSPORT PT HOME.
--- NOTE | 2024-02-25 13:46 | NUR ---
Discharge follow up call completed 02/25/24. Patient states he is improving daily. Patient has prescribed medication and is taking as directed. Pt has an appointment with his PCP in March and states it would be difficult to move the appointment up due to his transportation issues. No needs or concerns verbalized at this time.
== END 2024-02-22 13:00 | disposition home health service (06) ==
LOC: ED 14:03 → ED-I 16:30 → ED 17:00 → MS2 17:01
PROVIDERS: Emergency Medicine; Nurse Practitioner Family; ADMIT Internal Medicine; ATTEND Internal Medicine
DX: T83.518A Infection and inflammatory reaction due to other urinary catheter, initial encounter (principal); N39.0 Urinary tract infection, site not specified; B95.2 Enterococcus as the cause of diseases classified elsewhere; E87.20 Acidosis, unspecified; I13.0 Hypertensive heart and chronic kidney disease with heart failure and stage 1 through stage 4 chronic kidney disease, or unspecified chronic kidney disease; E11.22 Type 2 diabetes mellitus with diabetic chronic kidney disease; I50.9 Heart failure, unspecified; N18.9 Chronic kidney disease, unspecified; J44.9 Chronic obstructive pulmonary disease, unspecified; E03.9 Hypothyroidism, unspecified; E11.69 Type 2 diabetes mellitus with other specified complication; E78.5 Hyperlipidemia, unspecified; E11.40 Type 2 diabetes mellitus with diabetic neuropathy, unspecified; N31.9 Neuromuscular dysfunction of bladder, unspecified; F41.9 Anxiety disorder, unspecified; F32.A Depression, unspecified; M19.90 Unspecified osteoarthritis, unspecified site; Y84.6 Urinary catheterization as the cause of abnormal reaction of the patient, or of later complication, without mention of misadventure at the time of the procedure; Z86.73 Personal history of transient ischemic attack (TIA), and cerebral infarction without residual deficits; Z79.85 Long-term (current) use of injectable non-insulin antidiabetic drugs; Z87.891 Personal history of nicotine dependence; Z87.440 Personal history of urinary (tract) infections; Z22.358 Carrier of other Enterobacterales; Z20.822 Contact with and (suspected) exposure to COVID-19
CPT/HCPCS: J0692; J0696; J1650; J3370

== ENCOUNTER 2024-03-29 17:27 | Emergency (ER) | payer MEDICARE, MEDICAID ==
[~2024-03-29] VITALS: Ht 177.8 cm; Wt 95.0 kg
[~2024-03-29 17:27] MED LIST changes: +AMOX/K CLAV875 M1 PO
[2024-03-29] MEDS ORDERED: MORPHINE SULFATE 4 MG/ML VIAL IV ONE (17:35)
[2024-03-29] MEDS ORDERED: ONDANSETRON HCl 4 MG/2 ML SDV IV ONE (17:35)
[2024-03-29 18:29] LABS: BASO% 0.3 % (0-3); EOS% 1.9 % (0-8); HEMATOCRIT 36.3 % (39.0-50.0); HEMOGLOBIN 11.9 g/dl (14.0-18.0); IMMATURE GRANULOCYTES 0.2 % (0.0-5.0); LYMPH% 12.4 % (15-41); MEAN CORPUSCULAR HGB 31.2 pG CALC (26.0-32.0); MEAN CORPUSCULAR HGB CONC 32.8 g/dL CAL (32.0-36.0); MONO% 6.2 % (2-13); NEUT# 10.38 thou/uL (1.82-7.42); RED BLOOD COUNT 3.82 mill/uL (4.70-6.10)
[2024-03-29 18:40] LABS: CREATININE 1.5 mg/dL (0.7-1.3); POTASSIUM 4.5 mmol/l (3.5-5.1)
[2024-03-29 18:43] LABS: ALBUMIN 4.3 g/dL (3.2-5.0); BILIRUBIN, TOTAL 0.6 mg/dL (0.2-1.3); TOTAL PROTEIN 7.4 g/dL (6.3-8.2)
[2024-03-29 21:48] VITALS: BP 137/73
== END 2024-03-29 21:48 | disposition home or self-care (01) ==
LOC: ED 17:27
PROVIDERS: Nurse Practitioner
DX: M25.552 Pain in left hip (principal); M16.12 Unilateral primary osteoarthritis, left hip; I12.9 Hypertensive chronic kidney disease with stage 1 through stage 4 chronic kidney disease, or unspecified chronic kidney disease; E11.22 Type 2 diabetes mellitus with diabetic chronic kidney disease; N18.9 Chronic kidney disease, unspecified; J44.9 Chronic obstructive pulmonary disease, unspecified; I25.10 Atherosclerotic heart disease of native coronary artery without angina pectoris; E03.9 Hypothyroidism, unspecified; E78.5 Hyperlipidemia, unspecified; N40.0 Benign prostatic hyperplasia without lower urinary tract symptoms; V00.811A Fall from moving wheelchair (powered), initial encounter; Y92.009 Unspecified place in unspecified non-institutional (private) residence as the place of occurrence of the external cause; Z99.3 Dependence on wheelchair; Z79.85 Long-term (current) use of injectable non-insulin antidiabetic drugs; Z87.440 Personal history of urinary (tract) infections; Z86.73 Personal history of transient ischemic attack (TIA), and cerebral infarction without residual deficits
CPT/HCPCS: J2405

== ENCOUNTER 2024-04-01 13:43 | Emergency (ER) | payer MEDICARE, MEDICAID ==
[~2024-04-01] VITALS: Ht 177.8 cm; Wt 95.2 kg
[2024-04-01 14:36] LABS: BASO% 0.6 % (0-3); EOS% 4.1 % (0-8); HEMATOCRIT 36.7 % (39.0-50.0); IMMATURE GRANULOCYTES 0.1 % (0.0-5.0); LYMPH% 18.7 % (15-41); MEAN CELL VOLUME 95.1 fL CALC (80.0-100.0); MEAN CORPUSCULAR HGB 31.1 pG CALC (26.0-32.0); MEAN CORPUSCULAR HGB CONC 32.7 g/dL CAL (32.0-36.0); MONO% 7.1 % (2-13); NEUT# 6.13 thou/uL (1.82-7.42); NEUT% 69.4 % (42-76); RED BLOOD COUNT 3.86 mill/uL (4.70-6.10); RED CELL DISTRI WIDTH 12.9 % (11.5-15.5)
[2024-04-01] MEDS ORDERED: HYDROcodone 5 MG/Acetaminophen 325 MG/COMBO PO ONE (14:55)
[2024-04-01 15:00] LABS: ALBUMIN 4.4 g/dL (3.2-5.0); ALKALINE PHOSPHATASE 81 u/l (38-126); ANION GAP 16 (6-22 (CALC)); BILIRUBIN, TOTAL 0.5 mg/dL (0.2-1.3); BUN 27 mg/dL (8-23); BUN/CREATININE RATIO 20 (12-20 (CALC)); CARBON DIOXIDE 23 mmol/l (22-30); CHLORIDE 106 mmol/l (95-108); CREATININE 1.3 mg/dL (0.7-1.3); ESTIMATED GFR 57 ML/MIN (>=90 (CALC)); POTASSIUM 4.2 mmol/l (3.5-5.1); SGOT/AST 39 u/l (19-48); SODIUM 141 mmol/l (137-146); TOTAL PROTEIN 7.6 g/dL (6.3-8.2)
[2024-04-01] MEDS ORDERED: METHOCARBAMOL500 MG PO (16:26)
[2024-04-01 17:25] VITALS: BP 161/70
== END 2024-04-01 18:18 | disposition home or self-care (01) ==
LOC: ED 13:43
PROVIDERS: Family Medicine
DX: S39.012A Strain of muscle, fascia and tendon of lower back, initial encounter (principal); S16.1XXA Strain of muscle, fascia and tendon at neck level, initial encounter; M79.652 Pain in left thigh; M50.30 Other cervical disc degeneration, unspecified cervical region; I12.9 Hypertensive chronic kidney disease with stage 1 through stage 4 chronic kidney disease, or unspecified chronic kidney disease; E11.22 Type 2 diabetes mellitus with diabetic chronic kidney disease; N18.9 Chronic kidney disease, unspecified; F41.9 Anxiety disorder, unspecified; F32.A Depression, unspecified; J44.9 Chronic obstructive pulmonary disease, unspecified; V00.811A Fall from moving wheelchair (powered), initial encounter; Y92.008 Other place in unspecified non-institutional (private) residence as the place of occurrence of the external cause; Z79.85 Long-term (current) use of injectable non-insulin antidiabetic drugs; Z86.73 Personal history of transient ischemic attack (TIA), and cerebral infarction without residual deficits

== ENCOUNTER 2024-04-21 06:40 | Day surgery (SDC) | payer MEDICARE, MEDICAID ==
[~2024-04-21 06:40] MED LIST changes: +METHENAMINE HIPP1 GM PO; +METHOCARBAMOL500 MG PO
[2024-04-21] MEDS ORDERED: SODIUM CHLORIDE 0.9% 1,000 ML IV ONE ×2 (06:51→09:52)
[2024-04-21] MEDS ORDERED: FAMOTIDINE 10MG/ML 2ML SDV IV ONE (06:51)
[2024-04-21] MEDS ORDERED: Levofloxacin 500 mg Premix 100 ML IV ONE (06:51)
[2024-04-21] MEDS ORDERED: STERILE WATER 3,000 ML IV ONE (09:52)
[2024-04-21] MEDS ORDERED: STERILE WATER FOR IRRIGATION 500 ML BTL IR ONE (09:52)
[2024-04-21 10:36] VITALS: BP 142/67
[2024-04-21] MEDS ORDERED: LIDOCAINE HCL 2% 2ML SDV IV ONE (14:04)
[2024-04-21] MEDS ORDERED: PROPOFOL 200 MG/20 ML VIAL IV ONE (14:04)
== END 2024-04-21 10:58 | disposition home or self-care (01) ==
LOC: ORM 06:40
PROVIDERS: ATTEND Urology
PROC: 0VB08ZZ Excision of Prostate, Via Natural or Artificial Opening Endoscopic (ICD-10-PCS; principal; 2024-04-21)
PROC: 0TCB8ZZ Extirpation of Matter from Bladder, Via Natural or Artificial Opening Endoscopic (ICD-10-PCS; 2024-04-21)
DX: N40.1 Benign prostatic hyperplasia with lower urinary tract symptoms (principal); N13.8 Other obstructive and reflux uropathy; N31.9 Neuromuscular dysfunction of bladder, unspecified; R33.8 Other retention of urine; N21.0 Calculus in bladder; I10 Essential (primary) hypertension; E11.9 Type 2 diabetes mellitus without complications; J44.9 Chronic obstructive pulmonary disease, unspecified; F41.9 Anxiety disorder, unspecified; F32.A Depression, unspecified; E78.5 Hyperlipidemia, unspecified; Z87.440 Personal history of urinary (tract) infections; Z87.891 Personal history of nicotine dependence; Z96.0 Presence of urogenital implants; Z99.3 Dependence on wheelchair; Z79.4 Long term (current) use of insulin; Z79.84 Long term (current) use of oral hypoglycemic drugs
CPT/HCPCS: J1956